=== PATIENT | female | born 1945 | race Hispanic/Latino ===

== ENCOUNTER 2017-06-04 12:26 | Outpatient (CLI) | payer MEDICARE, MEDICAID | END 2017-06-04 12:27 | disposition home or self-care (01) | LOC: CP 12:26 | PROVIDERS: ATTEND Internal Medicine | DX: R06.02 Shortness of breath (principal) | CPT/HCPCS: 94010; 94727; 94729 ==

== ENCOUNTER 2017-06-12 10:28 | Outpatient (CLI) | payer MEDICARE, MEDICAID ==
--- NOTE | 2017-06-12 12:16 | RAD ---
CHEST TWO VIEWS: History: Dyspnea. Comparison: 02-18-17 FINDINGS/IMPRESSION: Mild cardiomegaly is again noted. Blunting of the left CP angle is stable. Mild interstitial promine nce in the lung bases is stable. No infiltrate or acute interval change noted. POS: [facility]
== END 2017-06-12 10:29 | disposition home or self-care (01) ==
LOC: RAD 10:28
PROVIDERS: ATTEND Internal Medicine
DX: R06.00 Dyspnea, unspecified (principal); I51.7 Cardiomegaly
CPT/HCPCS: 71020

== ENCOUNTER 2017-11-11 07:41 | Outpatient (CLI) | payer MEDICARE, MEDICAID | END 2017-11-11 07:42 | disposition home or self-care (01) | LOC: BICMAMMO 07:41 | PROVIDERS: ATTEND Family Medicine | DX: Z12.31 Encounter for screening mammogram for malignant neoplasm of breast (principal) | CPT/HCPCS: 77063; 77067 ==

== ENCOUNTER 2017-12-17 03:41 | Inpatient (IN) | payer MEDICARE, MEDICAID ==
[2017-12-17] MEDS ORDERED: Albuterol Sulfate 2.5 mg/3 ml Neb ONE (03:53)
[2017-12-17 04:02] LABS: Actual Bicarbonate (HCO3a) 21.8 mEq/L (22-26); Base Excess (BEa) -2.1 mEq/L (0 (+/-) 2.5); CO2 Tension 34.2 mmHg (35.0-45.0); Hematocrit-ABG 40.1 % (36.0-47.0); O2 Tension (PaO2) 64.1 mmHg (80.0-100.0); pH, Arterial 7.42 (7.35-7.45)
[2017-12-17 04:03] LABS: Calcium, Ionized 1.2 mmol/L (1.12-1.30)
[2017-12-17 04:04] LABS: Analyzer IN Cardio ER; Puncture Site LRA
[2017-12-17] MEDS ORDERED: Dexamethasone 10 MG/ML VIAL ONE (04:10)
[2017-12-17] MEDS ORDERED: Magnesium Sulfate 2 GM/100 ML BAG ONE (04:10)
[2017-12-17 04:25] LABS: #Basophils 0.1 thou/uL (0.0-0.2); #Eosinphils 0.4 thou/uL (0.0-0.7); #Lymphocytes 2.6 thou/uL (1.20-3.40); #Monocytes 0.8 thou/uL (0.11-0.59); #Neutrophils 11.5 thou/uL (1.40-6.50); %Basophils 0.6 % (0.0-1.0); %Eosinophils 2.5 % (0.0-10.0); %Lymphocytes 17.1 % (21.0-51.0); %Neutrophils 74.8 % (42.0-75.0); Hemoglobin 12.3 g/dL (12.0-16.0); Mean Corpuscular HGB CONC 32.2 g/dL (32.0-36.0); Mean Corpuscular Hemoglobin 26.1 pg (27.0-31.0); Mean Corpuscular Volume 80.9 fl (81.0-99.0); Platelet Count 318 thou/uL (130-400); RBC Distribution Width 14.3 % (11.5-14.5); Red Blood Cell (RBC) Count 4.73 mill/uL (4.20-5.40); White Blood Cell (WBC) Count 15.4 thou/uL (4.8-10.8)
[2017-12-17 04:45] LABS: ALT (SGPT) 10 U/L (8-55); AST (SGOT) 12 U/L (5-34); Albumin 4.1 g/dL (3.4-4.8); Alkaline Phosphatase 150 U/L (40-150); Anion Gap 15 mmol/L (10-20); BUN (Urea Nitrogen) 25 mg/dL (9.8-20.1); Bilirubin, Total 0.6 mg/dL (0.2-1.2); CK (CPK) 50 U/L (29-168); Calc. Creatinine Clearance 0 mL/min (70-130); Calcium 9.3 mg/dL (7.8-10.44); Carbon Dioxide 21 mmol/L (23-31); Chloride 103 mmol/L (98-107); Estimated GFR-MDRD 63; Globulin 2.8 g/dL (2.4-3.5); Glucose 205 mg/dL (83-110); Lipase 18 U/L (8-78); Potassium 3.4 mmol/L (3.5-5.1); Protein, Total 6.9 g/dL (6.0-8.3); Sodium 136 mmol/L (136-145)
[2017-12-17 04:48] LABS: CKMB 0.8 ng/mL (0-6.6); Troponin I Less than 0.010 ng/mL (< 0.028)
[2017-12-17] MEDS ORDERED: Ondansetron ODT 4 MG TAB SL PRN (05:40)
[2017-12-17] MEDS ORDERED: Ondansetron HCl/PF 4 MG/2 ML Vial IVP PRN (05:40)
[2017-12-17] MEDS ORDERED: Sodium Chloride 0.9% 1,000 ML IV SCH (05:40)
[2017-12-17 05:43] VITALS: BMI 31.8
[2017-12-17] MEDS ORDERED: Dextrose 50% Abboject 50 ML SYRINGE SLOW IVP PRN (05:53)
[2017-12-17] MEDS ORDERED: Acetaminophen 650 MG Suppository PR PRN (05:53)
[2017-12-17] MEDS ORDERED: Dextrose 5% in Water 1,000 ML IV PRN (05:53)
[2017-12-17] MEDS ORDERED: Bisacodyl 5 MG TAB PO PRN (05:53)
[2017-12-17] MEDS ORDERED: Potassium Chloride 20 MEQ TAB PO SCH (06:15)
[2017-12-17] MEDS: HumaLOG 300 UNITS/3 ML VIAL SC PRN ×3 (06:30→17:54)
--- NOTE | 2017-12-17 06:41 | HP ---
PRIMARY CARE PROVIDER: Shannon Ta M.D. CHIEF COMPLAINT: Shortness of breath. HISTORY OF PRESENT ILLNESS: Ms. Bojorquez is a pleasant 72-year-old lady who was seen at [facility] on 12/17/2017. The patient mainly speaks Greek. Her daughter was the escrow officer for this encounter. Her daughter reports that Ms. Bojorquez has been short of breath for several years. She was hospitalized at [facility] in 02/2017. She reports that she was doing well approximately 1 month following the discharge. After that, she started having shortness of breath. She also reports a chronic dry cough. She reports that her house has mold. She also reports that patient has lost 25 pounds since last hospitalization. The patient reportedly had decreased activity over the last 2-3 weeks. She also has been having fatigue, tiredness, ongoing cough, shortness of breath, and wheezing. She has to sit down after walking short distances. She also developed bilateral chest pain over the last one month, dull, 7/10 at its worst , worse with coughing and deep breathing. She denies any recent travel. The patient's daughter reports that the patient felt warm to touch yesterday. Because of ongoing respiratory symptoms as well as fatigue and tiredness, patient presented to the emergency room. REVIEW OF SYSTEMS: All other systems reviewed and noted to be negative. PAST MEDICAL HISTORY: Significant for hypertension, diabetes mellitus, dyslipidemia, chronic anemia, and chronic cough. PAST SURGICAL HISTORY: Right rotator cuff surgery, right leg surgery, appendectomy, and cholecystectomy. PSYCHIATRIC HISTORY: Depression. SOCIAL HISTORY: No history of tobacco use, alcohol use, or recreational drug use. CODE STATUS: I discussed her code status. The patient is FULL CODE. Her daughter is the surrogate decision maker. ALLERGIES: No known drug allergies. CURRENT MEDICATIONS: Include Nexium 40 mg daily, atorvastatin 20 mg daily, citalopram 10 mg daily, metformin 500 mg 2 times a day, levothyroxine 25 mcg daily, losartan/hydrochlorothiazide 100/25 mg daily, aspirin 325 mg daily, QVAR 80 mcg inhalation 2 times a day, vitamin D3 of 2000 units daily, calcium citrate /vitamin D3 of 500/630 daily, and levalbuterol p.r.n. FAMILY HISTORY: No family history of premature coronary artery disease. PHYSICAL EXAMINATION: GENERAL: On examination, Ms. Bojorquez is awake and alert, not in acute distress. She appears tired. VITAL SIGNS: Blood pressure is 102/51, pulse is 110, and respiratory rate is 18. Oxygen saturations are 100% on 2 liters of oxygen. T-max in the emergency room was 100 degrees Fahrenheit. EYES: No scleral icterus, no conjunctival pallor. ENT: Moist mucosal membranes, no oropharyngeal erythema or exudates. NECK: Supple, nontender, normal range of movement, trachea is midline. RESPIRATORY: Accessory muscles of breathing are active. Chest wall movements are symmetric bilaterally. LUNGS: Reveals diffuse expiratory wheeze. CARDIOVASCULAR: S1 and S2 are heard, regular and tachycardic. Peripheral pulses palpable. No carotid bruit, no pericardial rub. ABDOMEN: Soft, nontender, bowel sounds heard, no hepatomegaly, no splenomegaly. NEUROLOGIC: Cranial nerves II-XII intact, deep tendon reflexes are 2+. MUSCULOSKELETAL: Power is 5/5 in all four extremities. She has bilateral lower extremity edema. SKIN: No rashes or subcutaneous nodules. LYMPHATIC: No cervical lymphadenopathy. PSYCHIATRIC: Normal mood, normal affect, patient is oriented to person and place, not to time. LABORATORY DATA: Ms. Bojorquez' labs and investigations were reviewed. I reviewed her electrocardiogram, which shows sinus tachycardia, no ST changes to suggest an acute coronary syndrome. I also reviewed her chest x-ray, which shows a right lower lobe infiltrate. Laboratory investigation show white count of 15,400, of which 74% are neutrophils, normal hemoglobin, normal platelet count, normal sodium, decreased potassium of 3.4, elevated blood urea nitrogen of 25, normal creatinine, normal liver profile, normal lactic acid, normal BNP and normal troponin I. ASSESSMENT AND PLAN: Ms. Bojorquez is a pleasant 72-year-old lady who was seen at [facility] on 12/17/2017. Her problem list includes: 1. Sepsis: Ms. Bojorquez presentation is consistent with sepsis, suspected source of infection in the respiratory tract. She will be admitted to the hospital for further management. 2. Acute hypoxic respiratory failure: Ms. Bojorquez had oxygen saturation of 88 % on room air upon arrival. Most likely etiology is pneumonia. However, given her recent decreased mobility and sinus tachycardia, pulmonary embolism cannot be ruled out at this time. She will be admitted to the hospital and CT angiogram chest done to rule out pulmonary embolism. 3. Community-acquired pneumonia: The patient will be treated with levofloxacin , which has already been started in the emergency room. She will also receive steroids and bronchodilators for her wheezing. Pulmonary service will be consulted. 4. Diabetes mellitus: Start Accu-Cheks, insulin sliding scale. 5. Hypothyroidism: Continue Synthroid. 6. Dyslipidemia: Continue statin. 7. Hypertension: Continue home medications, monitor vital signs and titrate antihypertensives as needed. 8. Hypokalemia: Mild, replace potassium. Many thanks for allowing me to participate in your patient's care. Please feel free to contact me with any questions or concerns. LEVEL OF RISK: High. LEVEL OF COMPLEXITY: High. MTDD
[2017-12-17] MEDS: Sodium Chloride 0.9% 1,000 ML IV SCH ×2 (06:44→17:54)
[2017-12-17] MEDS: Enoxaparin Sodium 40 MG/0.4 ML SYRINGE SC SCH (08:22)
--- NOTE | 2017-12-17 08:49 | RAD ---
PORTABLE CHEST: HISTORY: Dyspnea. COMPARISON: 02/14/17. FINDINGS: There is alveolar infiltrate in the right lung base obscuring the CP angle. The lungs otherwise appear clear. There is mild cardiomegaly. Mild aortic calcification. IMPRESSION: Right lower lobe infiltrate. Followup recommended. POS: [facility]
[2017-12-17] MEDS ORDERED: Dexamethasone 10 MG/ML VIAL SLOW IVP SCH (09:00)
--- NOTE | 2017-12-17 11:06 | CT ---
CTA THORAX WITH CONTRAST: DATE: 12/17/2017 TIME: 8:40 a.m. (Computed Tomographic Angiography, chest (noncoronary) with contrast material, and image post process ing) (PE protocol) HISTORY: A 72-year-old female with dyspnea, hypoxia, and sepsis. TECHNIQUE: IV injection of iodinated contrast: Isovue-370 66 mL. Scan acquisition timing attempted to coincide with iodinated contrast bolus reaching maximal density in pulmonary arteries. 3D MIP reconstructions. FINDINGS: There is herniation of approximately 15% to 20% of the volume of the stomach into the chest. There i s an approximately 2 x 2 x 1.5 cm soft tissue density mass at the right hilum. No mediastinal lympha denopathy. There is a moderate sized region of consolidation in the right lower lobe, extending from the right inferior hilum to the basilar segments. There is no pulmonary thromboembolism in the pulm onic trunk, left and right main pulmonary arteries, or their proximal branches. Because of breathing motion artifact, it is difficult to evaluate the peripheral, basilar branches of the pulmonary arter ies, especially on the right. No thoracic aortic aneurysm or dissection. There is approximately 75% narrowing of the anteroposterior dimension of the trachea, but not the transverse dimension, at the level of the brachiocephalic artery. The lower trachea, claude, and left and right mainstem bronchi are patent and clear. There is abrupt occlusion of the lumen of the right lower lobe bronchus a few centimeters distal to the take-off point of the right middle lobe bronchus. No pleural effusion or p neumothorax. Minimal pericardial effusion. Mild cardiomegaly. Extensive atherosclerotic calcificat ion of LAD. IMPRESSION: 1. Right lower lobe air space density infiltrate of moderate size. This could represent pneumonia o r aspiration. It may be related to the abrupt occlusion of the lower portion of the right lower lobe bronchus. 2. Small right hilar mass could be a primary lung cancer or hilar lymphadenopathy. 3. Moderate sized hiatal hernia. 4. No pulmonary thromboembolism in the proximal and mid branch levels. The lower lobe peripheral br anches cannot be evaluated because of breathing motion. 5. Mild cardiomegaly. 6. Severe coronary atherosclerosis. 7. Focal short segment of tracheomalacia. nicole[] POS: [facility]
--- NOTE | 2017-12-17 11:51 | CON ---
DATE OF CONSULTATION: 12/17/2017 The consultation encompassed 70 minutes time, of that time, greater than 50% was spent with the patie nt and/or on the patient's unit in the hospital. HISTORY OF PRESENT ILLNESS: History is obtained by speaking with the patient in Yakut. Also, from reviewing information in the patient's chart including history and physical dictated by Dr. Viet ely this morning. She is a 72-year-old Yakut speaking female who has been short of breath and ex periencing increasing cough over the last 2 days. She denies any hemoptysis. She has reportedly los t about 25 pounds since her last hospitalization, she has had low grade fever and chills. She has brown d some pain when taking a deep breath. PAST MEDICAL HISTORY: 1. She has been seen by my partner, Dr. Calix in the past for restrictive lung physiology. 2. Hypertension. 3. Diabetes mellitus. 4. Hyperlipidemia. 5. Chronic cough. PAST SURGICAL HISTORY: 1. Right rotator cuff surgery. 2. Right leg surgery. 3. Appendectomy. 4. Cholecystectomy. SOCIAL HISTORY: Nonsmoker, does not consume alcohol, does not use illicit drugs. MEDICATIONS PRIOR TO ADMISSION: Nexium, atorvastatin, citalopram, metformin, levothyroxine, losartan /hydrochlorothiazide, aspirin, Qvar, vitamin D3, calcium citrate and Xopenex. REVIEW OF SYSTEMS: Twelve point review of systems otherwise negative. PHYSICAL EXAMINATION: VITAL SIGNS: Temperature is 99.1, pulse 100, respirations 22, O2 sat 99% on 2 liters, blood pressure 125/59. GENERAL: She is in bed. She is coughing profusely, but is otherwise in no distress. HEENT: Pupils react. Sclerae anicteric. Oropharynx clear. NECK: No adenopathy, no JVD. LUNGS: She has coarse rhonchi bilaterally with crackles in the right lower lobe. CARDIOVASCULAR: S1, S2 regular, without murmur or gallop. ABDOMEN: Soft, nontender, nondistended. EXTREMITIES: No clubbing, cyanosis or edema. NEUROLOGIC: Grossly intact throughout. LABORATORY DATA: Sodium 136, potassium 3.4, chloride 103, CO2 21, BUN 25, creatinine 0.8, glucose 20 5. White blood cell count 15.4, hematocrit 38.3, platelet count 318 with 74% neutrophils. IMAGING: CT of the chest shows a consolidation/infiltrative appearance in the right lower lobe. She has about 1.8 cm right hilar lymph node that is prominent. No evidence of pulmonary emboli. ASSESSMENT: 1. Right lower lobe pneumonia. 2. Sepsis syndrome. 3. Acute hypoxic respiratory failure. 4. History of diabetes mellitus. 5. History of hypothyroidism. 6. History of hypertension. 7. Bronchospasm. PLAN: The patient is currently being treated with Levaquin which should be adequate antibiotic cover age. Rocephin and Zithromax would be alternative. I agree with scheduled nebulization treatments, b ut would increase frequency to every 4 hours scheduled. Potassium has been replaced and she is on IV fluids. I agree with the steroids given the level of bronchospasm. The dose could probably be decr eased as quickly as tomorrow. The patient is on enoxaparin for DVT prophylaxis. I will discuss case with Dr. Calix and he will assume care tomorrow.
[2017-12-17] MEDS ORDERED: Iopamidol 370 76% 100 ML VIAL ONE (11:55)
[2017-12-17] MEDS ORDERED: Sodium Chloride 0.9% 250 ML 250 ML IVPB SCH (12:00)
[2017-12-17] MEDS: Acetaminophen 325 MG TAB PO PRN (17:56)
[2017-12-18 05:12] LABS: #Lymphocytes 1.3 thou/uL (1.20-3.40); #Monocytes 0.3 thou/uL (0.11-0.59); #Neutrophils 12.8 thou/uL (1.40-6.50); %Basophils 0.1 % (0.0-1.0); %Eosinophils 0.1 % (0.0-10.0); %Lymphocytes 9.1 % (21.0-51.0); %Monocytes 2.1 % (0.0-10.0); %Neutrophils 88.6 % (42.0-75.0); Hemoglobin 10.9 g/dL (12.0-16.0); Mean Corpuscular HGB CONC 32.5 g/dL (32.0-36.0); Mean Corpuscular Hemoglobin 25.9 pg (27.0-31.0); Mean Corpuscular Volume 79.6 fl (81.0-99.0); Mean Platelet Volume 7.7 fL (7.4-10.4); Platelet Count 282 thou/uL (130-400); RBC Distribution Width 14.1 % (11.5-14.5); White Blood Cell (WBC) Count 14.4 thou/uL (4.8-10.8)
[2017-12-18 05:29] LABS: Anion Gap 9 mmol/L (10-20); BUN (Urea Nitrogen) 19 mg/dL (9.8-20.1); Calc. Creatinine Clearance 76 mL/min (70-130); Calcium 8.8 mg/dL (7.8-10.44); Carbon Dioxide 23 mmol/L (23-31); Chloride 107 mmol/L (98-107); Estimated GFR-MDRD 77; Glucose 197 mg/dL (83-110); Potassium 4.3 mmol/L (3.5-5.1); Sodium 135 mmol/L (136-145)
[2017-12-18] MEDS: Enoxaparin Sodium 40 MG/0.4 ML SYRINGE SC SCH (08:06)
[2017-12-18] MEDS: Acetaminophen 325 MG TAB PO PRN (08:06)
[2017-12-18] MEDS: HumaLOG 300 UNITS/3 ML VIAL SC PRN (09:17)
[2017-12-18] MEDS: Sodium Chloride 0.9% 1,000 ML IV SCH (09:20)
[2017-12-18] MEDS ORDERED: guaiFENesin 100 MG/5 ML UDCUP PO PRN (10:10)
--- NOTE | 2017-12-18 12:01 | PDOC.PN ---
- Subjective Encounter Start Date: 12/18/17 Encounter Start Time: 09:00 Subjective: pt up in bed still feels unwell - Objective Resuscitation Status: Resuscitation Status FULL:Full Resuscitation Vital Signs & Weight: Vital Signs (12 hours) Temp Pulse Resp BP Pulse Ox 12/18/17 10:15 86 18 97 12/18/17 07:56 97.9 F 90 20 123/58 L 93 L 12/18/17 06:22 73 18 99 12/18/17 03:21 97.2 F L 78 13 129/58 L 93 L 12/18/17 02:12 85 16 93 L 12/18/17 00:47 95 I&O: 12/17/17 12/18/17 12/19/17 06:59 06:59 06:59 Intake Total 870 Balance 870 Result Diagrams: 12/18/17 04:29 12/18/17 04:29 Additional Labs: Accuchecks 12/18/17 12/17/17 12/17/17 05:41 21:21 16:13 POC Glucose 193 H 192 H 273 H 12/17/17 12:01 POC Glucose 266 H Phys Exam - Physical Examination HEENT: PERRLA, moist MMs, sclera anicteric, TM's clear, oral pharynx no lesions , 2+ tonsils Neck: no nodes, no JVD, supple, full ROM Respiratory: wheezing present rhonchi all over Cardiovascular: RRR, no significant murmur, no rub, gallop, irregular Gastrointestinal: soft, non-tender, no distention, positive bowel sounds Musculoskeletal: no edema, pulses present, edema present Dx/Plan - Plan * 1) sepsis * 2) community acquired pneumonia * 3) Diabetes type 2 * 4) hypothyroidism * * * plan: continue current abx for now, pt on duonebs and iv steroids. still has significant wheezing and rhonchi. will add mucinex. Encouraged to use IS and flutter valve. pt to get up and out of bed. blood sugars stable. pt still requiring oxygen. continue home meds. Review of Systems - Review of Systems ENT: negative: Ear Pain, Ear Discharge, Nose Pain, Nose Discharge, Nose Congestion, Mouth Pain, Mouth Swelling, Throat Pain, Throat Swelling, Other Respiratory: Cough, Shortness of Breath Cardiovascular: negative: chest pain, palpitations, orthopnea, paroxysmal nocturnal dyspnea, edema, light headedness, other Gastrointestinal: negative: Nausea, Vomiting, Abdominal Pain, Diarrhea, Constipation, Melena, Hematochezia, Other Genitourinary: negative: Dysuria, Frequency, Incontinence, Hematuria, Retention , Other Musculoskeletal: negative: Neck Pain, Shoulder Pain, Arm Pain, Back Pain, Hand Pain, Leg Pain, Foot Pain, Other - Medications/Allergies Allergies/Adverse Reactions: Allergies Allergy/AdvReac Type Severity Reaction Status Date / Time No Known Allergies Allergy Verified 12/17/17 06:12 Medications: Current Medications Acetaminophen (Tylenol) 650 mg PO Q4H PRN PRN Reason: Headache/Fever or Pain Last Admin: 12/18/17 08:06 Dose: 650 mg Acetaminophen (Tylenol) 650 mg MO Q4H PRN PRN Reason: Headache/Fever or Pain Albuterol/Ipratropium (Duoneb) 3 ml NEB [id number] [facility] Last Admin: 12/18/17 10:15 Dose: 3 ml Bisacodyl (Dulcolax) 10 mg PO DAILYPRN PRN PRN Reason: Constipation Dextrose/Water (Dextrose 50%) 25 gm SLOW IVP PRN PRN PRN Reason: Hypoglycemia Enoxaparin Sodium (Lovenox) 40 mg SC 0900 [facility] Last Admin: 12/18/17 08:06 Dose: 40 mg Famotidine (Pepcid) 20 mg SLOW IVP BID ASH[facility] Glucagon (Glucagon) 1 mg IM PRN PRN PRN Reason: Hypoglycemia Guaifenesin (Robitussin) 100 mg PO Q4H PRN PRN Reason: Cough Guaifenesin (Mucinex) 600 mg PO Q12HR [facility] Dextrose/Water (D5w) 1,000 mls @ 0 mls/hr IV .Q0M PRN; As Directed PRN Reason: Hypoglycemia Levofloxacin 750 mg/ Device 150 mls @ 100 mls/hr IVPB Q48H [facility] Sodium Chloride (Normal Saline 0.9%) 1,000 mls @ 70 mls/hr IV .[id number] [facility] Last Admin: 12/18/17 09:20 Dose: 1,000 mls Insulin Human Lispro (Humalog) 0 units SC .MILD SLIDING SCALE PRN PRN Reason: Mild Correctional Scale Last Admin: 12/18/17 09:17 Dose: 2 unit Methylprednisolone Sodium Succinate (Solu-Medrol) 40 mg IVP Q8HR [facility] Last Admin: 12/18/17 05:27 Dose: 40 mg Sodium Chloride (Flush - Normal Saline) 10 ml IVF Q12HR [facility] Last Admin: 12/18/17 08:07 Dose: Not Given Sodium Chloride (Flush - Normal Saline) 10 ml IVF PRN PRN PRN Reason: Saline Flush
[2017-12-18] MEDS ORDERED: Dextrose 5% in Water 1,000 ML IV PRN (12:05)
[2017-12-18] MEDS ORDERED: HumaLOG 300 UNITS/3 ML VIAL SC PRN (12:05)
[2017-12-18] MEDS ORDERED: Dextrose 50% Abboject 50 ML SYRINGE SLOW IVP PRN (12:05)
--- NOTE | 2017-12-18 13:22 | PRG ---
DATE OF SERVICE: 12/18/2017 SERVICE: Pulmonary Medicine. INTERVAL HISTORY: The patient is doing fine from a respiratory standpoint. She is breathing much be tter. She continues to feel like she has something in her throat. She is coughing up a little bit o f sputum. She has no chest discomfort, fevers, chills, nausea or vomiting. She has been weaned down to half liter nasal cannula and is tolerating that just fine. PHYSICAL EXAMINATION: VITAL SIGNS: Afebrile, pulse 106, blood pressure 125/59, respirations 20, saturation 93% on 2 liters nasal cannula. GENERAL: The patient is awake, alert, no apparent distress. LUNGS: Decent air entry. There is no prolonged expiratory phase, wheezing, rhonchi or crackles. HEART: Normal rate, regular. ABDOMEN: Soft, nontender, nondistended. Bowel sounds are positive. MUSCULOSKELETAL: No cyanosis or clubbing. There is no pitting in the bilateral lower extremities. NEUROLOGIC: Grossly nonfocal. LABORATORY DATA: WBC 14.4, hemoglobin 10.9, and platelets 282,000. Basic metabolic profile is essen tially unremarkable with creatinine of 0.74, and sodium that is stable at 135. Blood cultures x2, In fluenza A and B are unremarkable. IMAGING: CTA of the chest demonstrates no evidence of pulmonary embolism. Right lower lobe airspace density/infiltrate is present in moderate size. It is consistent with aspiration and/or pneumonia. There is a small right hilar lesion likely representing a lymph node. Moderate hiatal hernia. ASSESSMENT: 1. Community acquired pneumonia. 2. Sepsis without end organ damage. 3. Acute hypoxic respiratory failure. 4. Mild restrictive lung disease, secondary to body habitus. 5. Acute bronchitis. 6. Obstructive sleep apnea, suspected. PLAN: We will continue our antibiotics and nebulized medications. We will wean oxygen as tolerated. When she is off of oxygen, she can be considered for transition out of the hospital. We will work on mobilizing her throughout the day. In the outpatient setting, she will likely benefit from a poly somnogram looking into sleep apnea.
[2017-12-18] MEDS: Atorvastatin Calcium 20 MG TAB PO SCH (20:52)
[2017-12-18] MEDS: guaiFENesin ER 600 MG TAB PO SCH (20:52)
[2017-12-18] MEDS: Famotidine 40 MG/4 ML VIAL SLOW IVP SCH (20:52)
[2017-12-19] MEDS ORDERED: Citalopram 10 MG TAB PO SCH (09:00)
[2017-12-19] MEDS: Levothyroxine Sodium 25 MCG TAB PO SCH (09:25)
[2017-12-19] MEDS: Losartan/Hydrochlorothiazide 100 mg/25 mg Tablet PO SCH (09:25)
[2017-12-19] MEDS: guaiFENesin ER 600 MG TAB PO SCH ×2 (09:25→20:43)
[2017-12-19] MEDS: Enoxaparin Sodium 40 MG/0.4 ML SYRINGE SC SCH (09:25)
[2017-12-19] MEDS: Aspirin 81 mg Enteric Coated Tablet PO SCH (09:26)
[2017-12-19] MEDS: Famotidine 40 MG/4 ML VIAL SLOW IVP SCH ×2 (09:28→20:43)
[2017-12-19] MEDS ORDERED: Furosemide 20 MG/2 ML VIAL SLOW IVP SCH (12:45)
[2017-12-19] MEDS: Acetaminophen 325 MG TAB PO PRN (14:07)
--- NOTE | 2017-12-19 14:16 | PRG ---
DATE OF SERVICE: 12/19/2017 SERVICE: Pulmonary Medicine. INTERVAL HISTORY: The patient is doing fantastic from a respiratory standpoint. She is breathing co mfortably and was able to walk up and down the hallway with physical therapy. Last night was bad nig ht; however, because of some cough and congestion all night. That being said, it really paid off bec ause today she is breathing much better. She has no complaints of chest discomfort or fevers overnig ht. There were no events reported. PHYSICAL EXAMINATION: VITAL SIGNS: Afebrile, pulse 76, blood pressure 154/71, respirations 18, saturation 93% on 2 liters nasal cannula. GENERAL: The patient is awake, alert, in no apparent distress. LUNGS: Decent air entry. Rhonchi are present. Dependent crackles are minimal. There is no wheezin g or prolonged expiratory phase present. HEART: Normal rate and regular. ABDOMEN: Soft, nontender, nondistended. Bowel sounds are positive. MUSCULOSKELETAL: No cyanosis or clubbing. There is no pitting in the bilateral lower extremities. NEUROLOGIC: Grossly nonfocal. LABORATORY DATA: WBC 14.4, hemoglobin 10.9, and platelets 282,000. Creatinine 0.74. Basic metaboli c profile is otherwise unremarkable. Blood cultures x2 and influenza remain negative. ASSESSMENT: 1. Acute hypoxic respiratory failure. 2. Community-acquired pneumonia. 3. Sepsis without end organ damage. 4. Mild restrictive lung disease secondary to body habitus. 5. Acute bronchitis. 5. Obstructive sleep apnea, suspected. PLAN: I will continue her antibiotics and nebulized medications. Oxygen will be weaned away as adele rated. From my perspective, she is stable for transition out of the hospital in 24 hours if she main tains good mobility. She may need interim oxygen on discharge from the hospital, but that can be loo ked into tomorrow morning. She would benefit from a polysomnogram in the outpatient setting. Shira goyal will continue to follow while she remains in this location, however.
--- NOTE | 2017-12-19 14:59 | PDOC.PN ---
- Subjective Encounter Start Date: 12/19/17 Encounter Start Time: 11:30 Subjective: pt up in bed did not sleep well last night. - Objective Resuscitation Status: Resuscitation Status FULL:Full Resuscitation Vital Signs & Weight: Vital Signs (12 hours) Temp Pulse Pulse Pulse Resp BP BP 12/19/17 14:10 96 18 12/19/17 13:31 102 H 101 H 112/59 L 121/59 L 12/19/17 12:28 99.8 F H 100 20 12/19/17 09:16 98.2 F 99 12/19/17 07:32 12/19/17 07:31 105 H 20 12/19/17 03:20 99.3 F 107 H 18 BP BP Pulse Ox Pulse Ox Pulse Ox 12/19/17 14:10 94 L 12/19/17 13:31 97 96 12/19/17 12:28 129/61 96 12/19/17 09:16 129/61 98 12/19/17 07:32 92 L 12/19/17 07:31 91 L 12/19/17 03:20 141/61 H 92 L Weight Weight 158 lb 5 oz I&O: 12/18/17 12/19/17 12/20/17 06:59 06:59 06:59 Intake Total 870 2680 Balance 870 2680 Result Diagrams: 12/18/17 04:29 12/18/17 04:29 Additional Labs: Accuchecks 12/19/17 12/19/17 12/18/17 10:50 05:36 21:05 POC Glucose 167 H 126 H 135 H 12/18/17 17:44 POC Glucose 133 H Phys Exam - Physical Examination HEENT: PERRLA, moist MMs, sclera anicteric, TM's clear, oral pharynx no lesions , 2+ tonsils Neck: no nodes, no JVD, supple, full ROM significant rhonchi all over lungs Cardiovascular: RRR, no significant murmur, no rub, gallop, irregular Gastrointestinal: soft, non-tender, no distention, positive bowel sounds Dx/Plan - Plan * 1) sepsis * 2) community acquired pneumonia * 3) Diabetes type 2 * 4) hypothyroidism * * * plan: continue current abx for now, pt on duonebs and iv steroids. still has significant wheezing and rhonchi. will add mucinex. Encouraged to use IS and flutter valve. pt to get up and out of bed. blood sugars stable. pt still requiring oxygen. continue home meds. * 12/19 will give her one dose of lasix. Encouraged to get pt out of bed. will continue iv steroids. will consult PT. . Review of Systems - Review of Systems Eyes: negative: Pain, Vision Change, Conjunctivae Inflammation, Eyelid Inflammation, Redness, Other Respiratory: Cough, Shortness of Breath Cardiovascular: negative: chest pain, palpitations, orthopnea, paroxysmal nocturnal dyspnea, edema, light headedness, other Gastrointestinal: negative: Nausea, Vomiting, Abdominal Pain, Diarrhea, Constipation, Melena, Hematochezia, Other Genitourinary: negative: Dysuria, Frequency, Incontinence, Hematuria, Retention , Other Musculoskeletal: negative: Neck Pain, Shoulder Pain, Arm Pain, Back Pain, Hand Pain, Leg Pain, Foot Pain, Other - Medications/Allergies Allergies/Adverse Reactions: Allergies Allergy/AdvReac Type Severity Reaction Status Date / Time No Known Allergies Allergy Verified 12/17/17 06:12 Medications: Current Medications Acetaminophen (Tylenol) 650 mg PO Q4H PRN PRN Reason: Headache/Fever or Pain Last Admin: 12/19/17 14:07 Dose: 650 mg Acetaminophen (Tylenol) 650 mg MT Q4H PRN PRN Reason: Headache/Fever or Pain Albuterol/Ipratropium (Duoneb) 3 ml NEB [id number] [facility] Last Admin: 12/19/17 14:10 Dose: 3 ml Aspirin (Ecotrin) 81 mg PO DAILY [facility] Last Admin: 12/19/17 09:26 Dose: 81 mg Atorvastatin Calcium (Lipitor) 20 mg PO HS [facility] Last Admin: 12/18/17 20:52 Dose: 20 mg Benzonatate (Tessalon) 100 mg PO TIDPRN PRN PRN Reason: Cough Bisacodyl (Dulcolax) 10 mg PO DAILYPRN PRN PRN Reason: Constipation Cholecalciferol (Vitamin D3) 2,000 units PO DAILY [facility] Last Admin: 12/19/17 09:26 Dose: 2,000 units Dextrose/Water (Dextrose 50%) 25 gm SLOW IVP PRN PRN PRN Reason: Hypoglycemia Enoxaparin Sodium (Lovenox) 40 mg SC 0900 [facility] Last Admin: 12/19/17 09:25 Dose: 40 mg Famotidine (Pepcid) 20 mg SLOW IVP BID [facility] Last Admin: 12/19/17 09:28 Dose: 20 mg Glucagon (Glucagon) 1 mg IM PRN PRN PRN Reason: Hypoglycemia Guaifenesin (Robitussin) 100 mg PO Q4H PRN PRN Reason: Cough Guaifenesin (Mucinex) 600 mg PO Q12HR [facility] Last Admin: 12/19/17 09:25 Dose: 600 mg HCTZ/Losartan Potassium (Hyzaar 100/25) 1 tab PO DAILY [facility] Last Admin: 12/19/17 09:25 Dose: 1 tab Dextrose/Water (D5w) 1,000 mls @ 0 mls/hr IV .Q0M PRN; As Directed PRN Reason: Hypoglycemia Levofloxacin 750 mg/ Device 150 mls @ 100 mls/hr IVPB 1400 [facility] Last Admin: 12/19/17 14:06 Dose: 150 mls Insulin Human Lispro (Humalog) 0 units SC .MODERATE SLIDING SC PRN PRN Reason: Moderate Correctional Scale Levothyroxine Sodium (Synthroid) 25 mcg PO DAILY [facility] Last Admin: 12/19/17 09:25 Dose: 25 mcg Sodium Chloride (Flush - Normal Saline) 10 ml IVF Q12HR [facility] Last Admin: 12/19/17 09:29 Dose: 10 ml Sodium Chloride (Flush - Normal Saline) 10 ml IVF PRN PRN PRN Reason: Saline Flush
[2017-12-19] MEDS: Atorvastatin Calcium 20 MG TAB PO SCH (20:43)
[2017-12-20 05:13] LABS: Band 5 % (5-11); Eosinophils 1 % (0-10); Hemoglobin 10.9 g/dL (12.0-16.0); Hypochromia SLIGHT = 6-15 cells (100X) (0-5/hpf); Lymphocytes 19 % (21-51); MDiff Complete? YES; Mean Corpuscular HGB CONC 33.2 g/dL (32.0-36.0); Mean Corpuscular Hemoglobin 26.3 pg (27.0-31.0); Mean Corpuscular Volume 79.2 fl (81.0-99.0); Mean Platelet Volume 7.4 fL (7.4-10.4); Monocytes 5 % (0-10); Neutrophil 70 % (42-75); PLT Morphology Comment Appears Adequate; Platelet Count 297 thou/uL (130-400); Red Blood Cell (RBC) Count 4.14 mill/uL (4.20-5.40); White Blood Cell (WBC) Count 12.9 thou/uL (4.8-10.8)
[2017-12-20 05:18] LABS: Anion Gap 16 mmol/L (10-20); BUN (Urea Nitrogen) 16 mg/dL (9.8-20.1); Calc. Creatinine Clearance 76 mL/min (70-130); Carbon Dioxide 20 mmol/L (23-31); Chloride 103 mmol/L (98-107); Estimated GFR-MDRD 76; Glucose 138 mg/dL (83-110); Potassium 3.6 mmol/L (3.5-5.1); Sodium 135 mmol/L (136-145)
[2017-12-20] MEDS: Losartan/Hydrochlorothiazide 100 mg/25 mg Tablet PO SCH (08:31)
[2017-12-20] MEDS: guaiFENesin ER 600 MG TAB PO SCH ×2 (08:32→21:18)
[2017-12-20] MEDS: Levothyroxine Sodium 25 MCG TAB PO SCH (08:32)
[2017-12-20] MEDS: Aspirin 81 mg Enteric Coated Tablet PO SCH (08:32)
[2017-12-20] MEDS: Famotidine 40 MG/4 ML VIAL SLOW IVP SCH (08:32)
[2017-12-20] MEDS: Enoxaparin Sodium 40 MG/0.4 ML SYRINGE SC SCH (08:33)
--- NOTE | 2017-12-20 14:12 | PDOC.PN ---
- Subjective Encounter Start Date: 12/20/17 Encounter Start Time: 10:30 Subjective: pt up in bed no complains, feels much better today - Objective Resuscitation Status: Resuscitation Status FULL:Full Resuscitation Vital Signs & Weight: Vital Signs (12 hours) Temp Pulse Resp BP BP Pulse Ox 12/20/17 13:51 104 H 20 97 12/20/17 11:13 99.5 F 102 H 16 117/62 94 L 12/20/17 08:12 99 20 91 L 12/20/17 07:25 98.7 F 88 16 137/67 95 12/20/17 03:48 98.9 F 97 20 131/65 96 Weight Weight 158 lb 6 oz I&O: 12/19/17 12/20/17 12/21/17 06:59 06:59 06:59 Intake Total 2680 1320 Balance 2680 1320 Result Diagrams: 12/20/17 04:27 12/20/17 04:27 Additional Labs: Accuchecks 12/20/17 12/20/17 12/19/17 10:45 05:56 21:00 POC Glucose 150 H 137 H 157 H 12/19/17 16:20 POC Glucose 160 H Phys Exam - Physical Examination HEENT: PERRLA, moist MMs, sclera anicteric, TM's clear, oral pharynx no lesions , 2+ tonsils Neck: no nodes, no JVD, supple, full ROM mild rhonchi to bilateral lungs Cardiovascular: RRR, no significant murmur, no rub, gallop, irregular Gastrointestinal: soft, non-tender, no distention, positive bowel sounds Dx/Plan - Plan 1) sepsis resolved * 2) community acquired pneumonia * 3) Diabetes type 2 * 4) hypothyroidism * * * plan: continue current abx for now, pt on duonebs and iv steroids. still has significant wheezing and rhonchi. will add mucinex. Encouraged to use IS and flutter valve. pt to get up and out of bed. blood sugars stable. pt still requiring oxygen. continue home meds. * 12/19 will give her one dose of lasix. Encouraged to get pt out of bed. will continue iv steroids. will consult PT. * 12/20 pt feels much better today. pulmonary stopped her steroids. will continue her abx for now. possible discharge on friday. will check iron studies she is anemic. * . Review of Systems - Review of Systems Eyes: negative: Pain, Vision Change, Conjunctivae Inflammation, Eyelid Inflammation, Redness, Other ENT: negative: Ear Pain, Ear Discharge, Nose Pain, Nose Discharge, Nose Congestion, Mouth Pain, Mouth Swelling, Throat Pain, Throat Swelling, Other Respiratory: Cough Cardiovascular: negative: chest pain, palpitations, orthopnea, paroxysmal nocturnal dyspnea, edema, light headedness, other Gastrointestinal: negative: Nausea, Vomiting, Abdominal Pain, Diarrhea, Constipation, Melena, Hematochezia, Other - Medications/Allergies Allergies/Adverse Reactions: Allergies Allergy/AdvReac Type Severity Reaction Status Date / Time No Known Allergies Allergy Verified 12/17/17 06:12 Medications: Current Medications Acetaminophen (Tylenol) 650 mg PO Q4H PRN PRN Reason: Headache/Fever or Pain Last Admin: 12/19/17 14:07 Dose: 650 mg Acetaminophen (Tylenol) 650 mg OR Q4H PRN PRN Reason: Headache/Fever or Pain Albuterol/Ipratropium (Duoneb) 3 ml NEB [id number] [facility] Last Admin: 12/20/17 13:51 Dose: 3 ml Aspirin (Ecotrin) 81 mg PO DAILY [facility] Last Admin: 12/20/17 08:32 Dose: 81 mg Atorvastatin Calcium (Lipitor) 20 mg PO HS [facility] Last Admin: 12/19/17 20:43 Dose: 20 mg Benzonatate (Tessalon) 100 mg PO TIDPRN PRN PRN Reason: Cough Bisacodyl (Dulcolax) 10 mg PO DAILYPRN PRN PRN Reason: Constipation Cholecalciferol (Vitamin D3) 2,000 units PO DAILY [facility] Last Admin: 12/20/17 08:32 Dose: 2,000 units Dextrose/Water (Dextrose 50%) 25 gm SLOW IVP PRN PRN PRN Reason: Hypoglycemia Enoxaparin Sodium (Lovenox) 40 mg SC 0900 [facility] Last Admin: 12/20/17 08:33 Dose: 40 mg Famotidine (Pepcid) 20 mg PO BID [facility] Glucagon (Glucagon) 1 mg IM PRN PRN PRN Reason: Hypoglycemia Guaifenesin (Robitussin) 100 mg PO Q4H PRN PRN Reason: Cough Guaifenesin (Mucinex) 600 mg PO Q12HR [facility] Last Admin: 12/20/17 08:32 Dose: 600 mg HCTZ/Losartan Potassium (Hyzaar 100/25) 1 tab PO DAILY [facility] Last Admin: 12/20/17 08:31 Dose: 1 tab Dextrose/Water (D5w) 1,000 mls @ 0 mls/hr IV .Q0M PRN; As Directed PRN Reason: Hypoglycemia Levofloxacin 750 mg/ Device 150 mls @ 100 mls/hr IVPB 1400 [facility] Last Admin: 12/20/17 13:33 Dose: 150 mls Magnesium Sulfate 1 gm/ Sodium (Chloride) 102 mls @ 100 mls/hr IVPB NOW [facility] Stop: 12/20/17 15:15 Insulin Human Lispro (Humalog) 0 units SC .MODERATE SLIDING SC PRN PRN Reason: Moderate Correctional Scale Levothyroxine Sodium (Synthroid) 25 mcg PO DAILY [facility] Last Admin: 12/20/17 08:32 Dose: 25 mcg Polyethylene Glycol (Miralax) 17 gm PO DAILY [facility] Senna/Docusate Sodium (Senokot S) 1 tab PO BID [facility] Sodium Chloride (Flush - Normal Saline) 10 ml IVF Q12HR [facility] Last Admin: 12/20/17 08:33 Dose: 10 ml Sodium Chloride (Flush - Normal Saline) 10 ml IVF PRN PRN PRN Reason: Saline Flush
--- NOTE | 2017-12-20 15:37 | PRG ---
DATE OF SERVICE: 12/20/2017 SUBJECTIVE: She says she is better. She is still coughing up a lot of yellow sputum. OBJECTIVE: VITAL SIGNS: Blood pressure is 117/62, sats are 90% in room air, respirations 16, temperature 99. CHEST: Reveal extensive rhonchi and crackles. CARDIAC: Normal S1 and S2, no gallops. ABDOMEN: Soft, without masses. LABORATORY DATA: White count 12,000, hemoglobin and hematocrit 10 and 32, platelet count is normal. Electrolytes are normal. Cultures negative. IMPRESSION: Respiratory failure, bronchitis, pneumonia. Continue antibiotics, nebulizer treatment, PT, supportive care. We will follow.
[2017-12-20] MEDS: Famotidine 20 MG TAB PO SCH (21:18)
[2017-12-20] MEDS: Senokot S 8.6-50 MG TAB PO SCH (21:18)
[2017-12-20] MEDS: Atorvastatin Calcium 20 MG TAB PO SCH (21:19)
[2017-12-21 05:32] LABS: Iron 20 ug/dL (50-170); Iron Binding Capacity, Total 315 mcg/dL (265-497)
[2017-12-21] MEDS: Levothyroxine Sodium 25 MCG TAB PO SCH (05:54)
[2017-12-21] MEDS ORDERED: predniSONE 20 MG TAB PO SCH (08:00)
[2017-12-21] MEDS: Acetaminophen 325 MG TAB PO PRN ×2 (09:20→16:54)
[2017-12-21] MEDS: Senokot S 8.6-50 MG TAB PO SCH ×2 (09:20→20:13)
[2017-12-21] MEDS: Aspirin 81 mg Enteric Coated Tablet PO SCH (09:20)
[2017-12-21] MEDS: Enoxaparin Sodium 40 MG/0.4 ML SYRINGE SC SCH (09:20)
[2017-12-21] MEDS: Polyethylene Glycol 3350 17 GM Packet PO SCH (09:20)
[2017-12-21] MEDS: Losartan/Hydrochlorothiazide 100 mg/25 mg Tablet PO SCH (09:20)
[2017-12-21] MEDS: Famotidine 20 MG TAB PO SCH ×2 (09:20→20:13)
[2017-12-21] MEDS: guaiFENesin ER 600 MG TAB PO SCH ×2 (09:20→20:13)
[2017-12-21] MEDS ORDERED: Loratadine 10 MG TAB PO SCH (12:00)
[2017-12-21] MEDS: Fluticasone Propionate Nasal Spray 16 gm Bottle NASAL SCH (12:46)
--- NOTE | 2017-12-21 13:30 | PRG ---
DATE OF SERVICE: 12/21/2017 SUBJECTIVE: Jeanna Bojorquez is still coughing and wheezing. OBJECTIVE: VITAL SIGNS: Sats are 98% on room air, respirations 16, temperature 97, blood pressure 94/56. CHEST: Extensive rhonchi and crackles. CARDIAC: Normal S1, S2, no gallops. ABDOMEN: Soft, no masses. IMPRESSION: Right lower lobe pneumonia, bronchitis. PLAN: Cultures are negative. Suggest switching over to oral antibiotics, PT and supportive care.
[2017-12-21] MEDS: Benzonatate 100 MG CAP PO PRN ×2 (16:54→23:32)
[2017-12-21] MEDS: Mometasone/Formoterol 120 PUFF INHALER INH SCH (18:58)
[2017-12-21] MEDS: Atorvastatin Calcium 20 MG TAB PO SCH (20:13)
--- NOTE | 2017-12-21 21:39 | PDOC.PN ---
- Subjective Encounter Start Date: 12/21/17 Encounter Start Time: 11:00 Patient seen and examined for Pneumonia. Nasal stuffiness, Dry cough +. No new complaints. No overnight events - Objective Resuscitation Status: Resuscitation Status FULL:Full Resuscitation MAR Reviewed: Yes Vital Signs & Weight: Vital Signs (12 hours) Temp Pulse Resp BP Pulse Ox 12/21/17 18:57 99 16 95 12/21/17 16:45 97.8 F 104 H 18 114/58 L 96 12/21/17 13:05 98 16 94 L 12/21/17 12:00 97.7 F 99 16 94/56 L 93 L Weight Weight 155 lb I&O: 12/20/17 12/21/17 12/22/17 06:59 06:59 06:59 Intake Total 1320 1690 960 Balance 1320 1690 960 Result Diagrams: 12/20/17 04:27 12/20/17 04:27 Additional Labs: Accuchecks 12/21/17 12/21/17 12/21/17 16:38 10:53 06:10 POC Glucose 123 H 155 H 150 H 12/20/17 21:37 POC Glucose 128 H EKG Reviewed by me: Yes (Tele SR, SVT yesterday) Phys Exam - Physical Examination Constitutional: NAD Respiratory: no wheezing, no rhonchi Cardiovascular: RRR, no rub Rt sided rales Gastrointestinal: soft, non-tender, positive bowel sounds Musculoskeletal: no edema Neurological: moves all 4 limbs Psychiatric: A&O x 3 Dx/Plan - Plan respiratory therapy, DVT proph w/lovenox, DVT proph w/SCDs IMPRESSION/PLAN: 1. Acute hypoxic respiratory failure/Sepsis due to Pneumonia ?Pneumococcal - Cont Levaquin, Nebs, Mucolytics, O2 - Add Flonase, Loratadine due to allergic symptoms 2. DM2 - Cont sliding scale, ACHS 3. SVT - Add Cardizem 30 mg TID, Normal EF last year 4. HTN - BP on lower side - Will hold Losartan/HCTZ, Started on Cardizem 5. Obesity BMI 31.3 6. Hypothyroidism - Cont Levothyroxine 7. ?Hilar mass on CT - Repeat CT as outpt, Pulmonary following 8. Disposition - Probably in 24 hr Review of Systems - Review of Systems Cardiovascular: negative: chest pain, palpitations, orthopnea, paroxysmal nocturnal dyspnea, edema, light headedness, other Gastrointestinal: negative: Nausea, Vomiting, Abdominal Pain, Diarrhea, Constipation, Melena, Hematochezia, Other Genitourinary: negative: Dysuria, Frequency, Incontinence, Hematuria, Retention , Other - Medications/Allergies Allergies/Adverse Reactions: Allergies Allergy/AdvReac Type Severity Reaction Status Date / Time No Known Allergies Allergy Verified 12/17/17 06:12 Medications: Current Medications Acetaminophen (Tylenol) 650 mg PO Q4H PRN PRN Reason: Headache/Fever or Pain Last Admin: 12/21/17 16:54 Dose: 650 mg Acetaminophen (Tylenol) 650 mg NM Q4H PRN PRN Reason: Headache/Fever or Pain Albuterol/Ipratropium (Duoneb) 3 ml NEB [id number] [facility] Last Admin: 12/21/17 18:57 Dose: 3 ml Aspirin (Ecotrin) 81 mg PO DAILY [facility] Last Admin: 12/21/17 09:20 Dose: 81 mg Atorvastatin Calcium (Lipitor) 20 mg PO HS [facility] Last Admin: 12/21/17 20:13 Dose: 20 mg Benzonatate (Tessalon) 100 mg PO TIDPRN PRN PRN Reason: Cough Last Admin: 12/21/17 16:54 Dose: 100 mg Bisacodyl (Dulcolax) 10 mg PO DAILYPRN PRN PRN Reason: Constipation Cholecalciferol (Vitamin D3) 2,000 units PO DAILY [facility] Last Admin: 12/21/17 09:20 Dose: 2,000 units Dextrose/Water (Dextrose 50%) 25 gm SLOW IVP PRN PRN PRN Reason: Hypoglycemia Diltiazem HCl (Cardizem) 30 mg PO TID [facility] Enoxaparin Sodium (Lovenox) 40 mg SC 0900 [facility] Last Admin: 12/21/17 09:20 Dose: 40 mg Famotidine (Pepcid) 20 mg PO BID [facility] Last Admin: 12/21/17 20:13 Dose: 20 mg Fluticasone Propionate (Flonase Nasal [place]) 0 gm NASAL Q24H [facility] Last Admin: 12/21/17 12:46 Dose: 2 spr Glucagon (Glucagon) 1 mg IM PRN PRN PRN Reason: Hypoglycemia Guaifenesin (Robitussin) 100 mg PO Q4H PRN PRN Reason: Cough Guaifenesin (Mucinex) 600 mg PO Q12HR [facility] Last Admin: 12/21/17 20:13 Dose: 600 mg HCTZ/Losartan Potassium (Hyzaar 100/25) 1 tab PO DAILY [facility] Last Admin: 12/21/17 09:20 Dose: 1 tab Dextrose/Water (D5w) 1,000 mls @ 0 mls/hr IV .Q0M PRN; As Directed PRN Reason: Hypoglycemia Insulin Human Lispro (Humalog) 0 units SC .MODERATE SLIDING SC PRN PRN Reason: Moderate Correctional Scale Levofloxacin (Levaquin) 750 mg PO 1400 [facility] Last Admin: 12/21/17 14:14 Dose: 750 mg Levothyroxine Sodium (Synthroid) 25 mcg PO 0600 [facility] Last Admin: 12/21/17 05:54 Dose: 25 mcg Loratadine (Claritin) 10 mg PO DAILY [facility] Mometasone Furoate/Formoterol Fumar (Dulera 200 Mcg/5 Mcg Inhaler) 2 puff INH BID-RT [facility] Last Admin: 12/21/17 18:58 Dose: 2 puff Polyethylene Glycol (Miralax) 17 gm PO DAILY [facility] Last Admin: 12/21/17 09:20 Dose: 17 gm Saccharomyces Boulardii (Florastor) 250 mg PO DAILY [facility] Senna/Docusate Sodium (Senokot S) 1 tab PO BID [facility] Last Admin: 12/21/17 20:13 Dose: 1 tab Sodium Chloride (Flush - Normal Saline) 10 ml IVF Q12HR [facility] Last Admin: 12/21/17 20:13 Dose: 10 ml Sodium Chloride (Flush - Normal Saline) 10 ml IVF PRN PRN PRN Reason: Saline Flush
[2017-12-22 05:08] LABS: #Eosinphils 1.6 thou/uL (0.0-0.7); #Lymphocytes 1.7 thou/uL (1.20-3.40); #Monocytes 0.7 thou/uL (0.11-0.59); #Neutrophils 8.5 thou/uL (1.40-6.50); %Basophils 0.2 % (0.0-1.0); %Eosinophils 12.5 % (0.0-10.0); %Lymphocytes 13.3 % (21.0-51.0); %Monocytes 5.5 % (0.0-10.0); %Neutrophils 68.4 % (42.0-75.0); Hemoglobin 10.9 g/dL (12.0-16.0); Mean Corpuscular HGB CONC 32.1 g/dL (32.0-36.0); Mean Corpuscular Hemoglobin 25.5 pg (27.0-31.0); Mean Corpuscular Volume 79.5 fl (81.0-99.0); Mean Platelet Volume 7.4 fL (7.4-10.4); Platelet Count 329 thou/uL (130-400); Red Blood Cell (RBC) Count 4.28 mill/uL (4.20-5.40); White Blood Cell (WBC) Count 12.4 thou/uL (4.8-10.8)
[2017-12-22 05:23] LABS: Albumin 3.3 g/dL (3.4-4.8); Anion Gap 12 mmol/L (10-20); BUN (Urea Nitrogen) 22 mg/dL (9.8-20.1); BUN/Creatinine Ratio 26.83; Calc. Creatinine Clearance 68 mL/min (70-130); Calcium 9.1 mg/dL (7.8-10.44); Carbon Dioxide 24 mmol/L (23-31); Chloride 104 mmol/L (98-107); Estimated GFR-MDRD 68; Glucose 128 mg/dL (83-110); Magnesium 1.7 mg/dL (1.6-2.6); Phosphorus 3.3 mg/dL (2.3-4.7); Potassium 3.7 mmol/L (3.5-5.1); Sodium 136 mmol/L (136-145)
[2017-12-22] MEDS: Levothyroxine Sodium 25 MCG TAB PO SCH (05:41)
[2017-12-22] MEDS: Mometasone/Formoterol 120 PUFF INHALER INH SCH ×2 (08:45→19:31)
[2017-12-22] MEDS: Polyethylene Glycol 3350 17 GM Packet PO SCH (09:00)
[2017-12-22] MEDS: guaiFENesin ER 600 MG TAB PO SCH ×2 (09:33→22:00)
[2017-12-22] MEDS: Loratadine 10 MG TAB PO SCH (09:33)
[2017-12-22] MEDS: Famotidine 20 MG TAB PO SCH ×2 (09:33→22:00)
[2017-12-22] MEDS: Saccharomyces boulardii 250 MG CAP PO SCH (09:33)
[2017-12-22] MEDS: Aspirin 81 mg Enteric Coated Tablet PO SCH (09:34)
[2017-12-22] MEDS: Fluticasone Propionate Nasal Spray 16 gm Bottle NASAL SCH (09:34)
[2017-12-22] MEDS: Senokot S 8.6-50 MG TAB PO SCH ×2 (09:37→22:00)
--- NOTE | 2017-12-22 09:39 | PDOC.PN ---
- Subjective Encounter Start Date: 12/22/17 Encounter Start Time: 10:30 Subjective: Patient with continued chest congestion and cough. Significant nasal -: congestion. Requiring O2 still, desats to 88% on room air. - Objective Resuscitation Status: Resuscitation Status FULL:Full Resuscitation MAR Reviewed: Yes Vital Signs & Weight: Vital Signs (12 hours) Temp Pulse Resp BP Pulse Ox 12/22/17 08:45 81 12 12/22/17 08:40 96 12/22/17 08:39 107 H 18 12/22/17 08:00 99.3 F 104 H 20 109/82 90 L 12/22/17 04:00 98.3 F 105 H 117/58 L 92 L 12/22/17 00:28 97 16 93 L Weight Weight 169 lb I&O: 12/21/17 12/22/17 12/23/17 06:59 06:59 06:59 Intake Total 1690 1440 Balance 1690 1440 Result Diagrams: 12/22/17 04:30 12/22/17 04:30 Additional Labs: Accuchecks 12/22/17 12/21/17 12/21/17 05:51 21:10 16:38 POC Glucose 132 H 139 H 123 H 12/21/17 10:53 POC Glucose 155 H Phys Exam - Physical Examination Constitutional: NAD obesity HEENT: moist MMs Respiratory: wheezing present air movement decent bilaterally Cardiovascular: RRR, no significant murmur Gastrointestinal: soft, positive bowel sounds Neurological: non-focal, moves all 4 limbs Psychiatric: normal affect, A&O x 3 Dx/Plan (1) Community acquired bacterial pneumonia Code(s): J15.9 - UNSPECIFIED BACTERIAL PNEUMONIA Status: Acute Comment: Transitioned to oral Levaquin, can d/c on home O2 (2) Acute respiratory failure with hypoxia Code(s): J96.01 - ACUTE RESPIRATORY FAILURE WITH HYPOXIA Status: Acute Comment: Still hypoxic on room air. Will need transition O2 at home. (3) DAYDAY (obstructive sleep apnea) Code(s): G47.33 - OBSTRUCTIVE SLEEP APNEA (ADULT) (PEDIATRIC) Status: Suspected Comment: Needs outpatient sleep study (4) Mediastinal mass Status: Acute Comment: Right sided, lymphadenopathy vs. primary lung cancer, needs repeat CT as outpatient (5) Anxiety and depression Code(s): F41.9 - ANXIETY DISORDER, UNSPECIFIED; F32.9 - MAJOR DEPRESSIVE DISORDER, SINGLE EPISODE, UNSPECIFIED Status: Chronic (6) DM2 (diabetes mellitus, type 2) Status: Chronic (7) Dyslipidemia Code(s): E78.5 - HYPERLIPIDEMIA, UNSPECIFIED Status: Chronic (8) GERD (gastroesophageal reflux disease) Code(s): K21.9 - GASTRO-ESOPHAGEAL REFLUX DISEASE WITHOUT ESOPHAGITIS Status: Chronic (9) HTN (hypertension) Code(s): I10 - ESSENTIAL (PRIMARY) HYPERTENSION Status: Chronic (10) Hypothyroidism Code(s): E03.9 - HYPOTHYROIDISM, UNSPECIFIED Status: Chronic (11) Microcytic anemia Code(s): D50.9 - IRON DEFICIENCY ANEMIA, UNSPECIFIED Status: Chronic (12) Obesity (BMI 30-39.9) Code(s): E66.9 - OBESITY, UNSPECIFIED Status: Chronic - Plan cont current plan of care, continue antibiotics, respiratory therapy Arrange home O2 then d/c, follow up with pulmonology as an outpatient * . - Discharge Day Encounter end time: 11:00
--- NOTE | 2017-12-22 14:41 | DIS ---
PRIMARY CARE PHYSICIAN: Chandler Kelsey M.D. REASON FOR ADMISSION: Pneumonia with sepsis. DISCHARGE DIAGNOSES: 1. Community-acquired bacterial pneumonia. 2. Acute respiratory failure with hypoxia. 3. Possible obstructive sleep apnea. 4. Mediastinal mass with right hilar mass. 5. Anxiety and depression. 6. Diabetes mellitus, type 2. 7. Dyslipidemia. 8. Gastroesophageal reflux disease. 9. Hypertension. 10. Hypothyroidism 11. Microcytic anemia. 12. Obesity. 13. Supraventricular tachycardia asymptomatic and paroxysmal. PROCEDURES: CTA of the chest and thorax showing a right lower lobe airspace density infiltrate a mod erate size, likely pneumonia, a small right hilar mass either primary lung cancer or hilar lymphadeno chuck, moderate size hiatal hernia and no pulmonary embolism, also noted to have a focal short segmen t of tracheomalacia and severe coronary artery atherosclerosis. CONSULTATIONS: Pulmonology, Dr. He. SUMMARY OF HOSPITAL COURSE: This is a 72-year-old female with a history of shortness of breath for s everal years. She is having worsening shortness of breath over about the last year, along with some weight loss and a chronic cough and then significant worsening over the last 2-3 weeks. She brought to the emergency room and was found to be hypoxic on room air and was also found to have an infiltrat e on chest x-ray. She had a CT angio done, which showed the above results. No evidence of PE. The patient was admitted to hospital, Pulmonology was consulted. The patient was treated with Levaquin f or pneumonia along with some steroids and nebulizers. She did improve with hospitalization; however, she was still dependent on oxygen. On the day of discharge, she was successfully switched to oral a ntibiotics and has home oxygen arranged. In the last couple of days during her hospitalization, she did have some runs of supraventricular tachycardia, these were self-limited and asymptomatic. She wa s started on some Cardizem 3 times today for this with control of her heart rate. This is thought to be due to the pulmonary infection and hypoxia. On the day of discharge, she was improved, ambulatin g well and is being discharged home. DISCHARGE MANAGEMENT: Discharged home with home health. ACTIVITY: As tolerated. DIET: Diabetic diet. HOME EQUIPMENT SUPPLIES. Oxygen 2 liters via nasal cannula. MEDICATIONS: 1. Levofloxacin 750 mg daily for 2 more days. 2. Mucinex ER 600 mg twice a day, 30 tablets dispensed. 3. Flonase 2 sprays in each nostril daily one bottle dispense. 4. Diltiazem 30 mg 3 times a day, 90 tablets dispensed. 5. Tessalon Perles 100 mg 3 times a day as needed for coughing, 30 caps dispensed, and she is to res ume her home medications. 6. Calcium citrate/vitamin D 250/200 two tablets daily. 7. Albuterol sulfate inhaler 1 puff every 4 hours as needed for coughing, wheezing, shortness of jeaneth ath. 8. Vitamin D3 at 2000 units daily. 9. Qvar 1 puff twice a day. 10. Aspirin 81 mg daily. 11. Losartan/hydrochlorothiazide 100/25 mg 1 tablet daily. 12. Metformin 500 mg twice a day. 13. Levothyroxine 25 mcg daily. 14. Citalopram 10 mg daily. 15. Lipitor 20 mg at night. 16. Nexium 40 mg daily. FOLLOWUP: The patient is to followup with Dr. Calix in 2 weeks. She will need a repeat CT scan fo r the hilar mass and will need an outpatient sleep study arranged.
--- NOTE | 2017-12-22 18:13 | PRG ---
DATE OF SERVICE: 12/22/2017 SERVICE: Pulmonary Medicine. INTERVAL HISTORY: The patient is doing great from a respiratory standpoint. She is breathing much better. She continues to have a cough. That being said, starting to settle down slightly. She denies any fevers, chills, nausea or vomiting. There were no significant overnight events, however. OBJECTIVE: VITAL SIGNS: Afebrile with a T-max of 99.2, pulse 99, blood pressure 101/55, respirations 16, saturation 93% on 2 liters nasal cannula. GENERAL: The patient is awake and alert, no apparent distress. LUNGS: Decent air entry bilaterally without significant wheezing, rhonchi or crackles. HEART: Normal rate, regular. ABDOMEN: Soft, nontender, nondistended. Bowel sounds are positive. MUSCULOSKELETAL: No cyanosis or clubbing. No pitting in the bilateral lower extremities. ASSESSMENT: 1. Acute hypoxic respiratory failure. 2. Community-acquired pneumonia. 3. Sepsis without end organ damage. 4. Mild restrictive lung disease secondary to body habitus. 5. Acute bronchitis. 6. Obstructive sleep apnea, suspected. DISCUSSION AND PLAN: The patient is stable for transition out of the hospital from my perspective. She needs a followup with me in the outpatient setting in order to have a polysomnogram set. I have asked her to call my office and arrange for the follow-up. I have previously attempted to two separate occasions to set up a polysomnogram, but the patient does not follow through. I will continue to follow if she remains inhouse, however. SULMA
[2017-12-22] MEDS: Atorvastatin Calcium 20 MG TAB PO SCH (22:00)
[2017-12-23] MEDS: Levothyroxine Sodium 25 MCG TAB PO SCH (06:00)
[2017-12-23] MEDS: Mometasone/Formoterol 120 PUFF INHALER INH SCH (07:10)
[2017-12-23] MEDS: Famotidine 20 MG TAB PO SCH (09:00)
[2017-12-23] MEDS: Aspirin 81 mg Enteric Coated Tablet PO SCH (09:00)
[2017-12-23] MEDS: Saccharomyces boulardii 250 MG CAP PO SCH (09:00)
[2017-12-23] MEDS: Loratadine 10 MG TAB PO SCH (09:00)
[2017-12-23] MEDS: guaiFENesin ER 600 MG TAB PO SCH (09:00)
[2017-12-23] MEDS: Polyethylene Glycol 3350 17 GM Packet PO SCH (09:01)
[2017-12-23] MEDS: Senokot S 8.6-50 MG TAB PO SCH (09:01)
--- NOTE | 2017-12-23 09:40 | PDOC.PN ---
- Subjective Encounter Start Date: 12/23/17 Encounter Start Time: 10:50 Subjective: Patient doing better. Sating 96% on 2L NC. O2 turned off 1 hour ago , feels -: ok, not sure sats on RA this AM. Plan to go home on home O2 today. - Objective Resuscitation Status: Resuscitation Status FULL:Full Resuscitation MAR Reviewed: Yes Vital Signs & Weight: Vital Signs (12 hours) Temp Pulse Resp BP Pulse Ox 12/23/17 07:10 80 14 12/23/17 04:00 98.2 F 88 18 135/66 96 12/23/17 00:30 101 H 20 93 L Weight Weight 165 lb 11.2 oz I&O: 12/22/17 12/23/17 12/24/17 06:59 06:59 06:59 Intake Total 1440 240 Balance 1440 240 Result Diagrams: 12/22/17 04:30 12/22/17 04:30 Additional Labs: Accuchecks 12/23/17 12/22/17 12/22/17 06:02 20:38 16:48 POC Glucose 130 H 160 H 141 H 12/22/17 11:30 POC Glucose 112 H Phys Exam - Physical Examination Constitutional: NAD HEENT: moist MMs coarse breath sounds and scattered wheezes bilaterally, good air movement throughout Cardiovascular: RRR, no significant murmur Gastrointestinal: soft, positive bowel sounds Neurological: non-focal, moves all 4 limbs Psychiatric: normal affect, A&O x 3 Dx/Plan (1) Community acquired bacterial pneumonia Code(s): J15.9 - UNSPECIFIED BACTERIAL PNEUMONIA Status: Acute Comment: Transitioned to oral Levaquin, can d/c on home O2 (2) Acute respiratory failure with hypoxia Code(s): J96.01 - ACUTE RESPIRATORY FAILURE WITH HYPOXIA Status: Acute Comment: Still hypoxic on room air. Will need transition O2 at home. (3) DAYDAY (obstructive sleep apnea) Code(s): G47.33 - OBSTRUCTIVE SLEEP APNEA (ADULT) (PEDIATRIC) Status: Suspected Comment: Needs outpatient sleep study (4) Mediastinal mass Status: Acute Comment: Right sided, lymphadenopathy vs. primary lung cancer, needs repeat CT as outpatient (5) Anxiety and depression Code(s): F41.9 - ANXIETY DISORDER, UNSPECIFIED; F32.9 - MAJOR DEPRESSIVE DISORDER, SINGLE EPISODE, UNSPECIFIED Status: Chronic (6) DM2 (diabetes mellitus, type 2) Status: Chronic (7) Dyslipidemia Code(s): E78.5 - HYPERLIPIDEMIA, UNSPECIFIED Status: Chronic (8) GERD (gastroesophageal reflux disease) Code(s): K21.9 - GASTRO-ESOPHAGEAL REFLUX DISEASE WITHOUT ESOPHAGITIS Status: Chronic (9) HTN (hypertension) Code(s): I10 - ESSENTIAL (PRIMARY) HYPERTENSION Status: Chronic (10) Hypothyroidism Code(s): E03.9 - HYPOTHYROIDISM, UNSPECIFIED Status: Chronic (11) Microcytic anemia Code(s): D50.9 - IRON DEFICIENCY ANEMIA, UNSPECIFIED Status: Chronic (12) Obesity (BMI 30-39.9) Code(s): E66.9 - OBESITY, UNSPECIFIED Status: Chronic - Plan cont current plan of care, respiratory therapy Patient discharge delayed due to family having to arrange home oxygen. -: Home today. * . - Discharge Day Encounter end time: 11:05
[2017-12-23] MEDS: Fluticasone Propionate Nasal Spray 16 gm Bottle NASAL SCH (12:04)
[2017-12-23 12:50] VITALS: BP 116/55; TEMP 98.2
--- NOTE | 2017-12-23 14:07 | PRG ---
DATE OF SERVICE: 12/23/2017 SERVICE: Pulmonary Medicine. INTERVAL HISTORY: The patient is doing fine from a respiratory standpoint. She denies any current chest pain, nausea, vomiting, fevers or chills. She got very tearful since I walked in the room. She started crying profusely. She indicated that her air conditioner was not currently working. It would be way too hot for her to be discharged from the hospital. As such, she is requesting to stay multiple days in order to get this thing addressed. I have told her that is not appropriate use of inpatient resources, and that if she needs to, she can stay with friends or get a hotel room. That being said, she has no respiratory complaints this morning. She continues to have a cough, although it is improving significantly. PHYSICAL EXAMINATION: VITAL SIGNS: Afebrile, pulse 96, blood pressure 116/55, respirations 18, saturation 92% on room air. GENERAL: The patient is awake, alert, no apparent distress. LUNGS: Decent air entry. There is no prolonged expiratory phase, wheezing, rhonchi, or crackles present. HEART: Normal rate, regular. ABDOMEN: Soft, nontender, nondistended. Bowel sounds are positive. MUSCULOSKELETAL: No cyanosis or clubbing. There is no pitting in the bilateral lower extremities. NEUROLOGIC: Grossly nonfocal. ASSESSMENT: 1. Acute hypoxic respiratory failure, resolved. 2. Acute pneumonia, resolved. 3. Sepsis without end organ damage. 4. Mild restrictive lung disease secondary to body habitus. 5. Acute bronchitis. 6. Obstructive sleep apnea, suspected DISCUSSION AND PLAN: The patient is stable for transition out of the hospital today. At this point, she has no further requirements for inpatient Pulmonary or Critical Care opinion, I will sign off. I would like for her to see me in clinic in 2-4 weeks in the outpatient setting, so that we can see whether or not she continues to need oxygen, and arrange for and in-lab sleep study, again. SULMA
== END 2017-12-23 15:00 | disposition home or self-care (01) | DRG 871 ==
LOC: ERS 03:41 → 2NO 04:35
PROVIDERS: ADMIT Internal Medicine; ATTEND Internal Medicine
DX: A41.9 Sepsis, unspecified organism (principal); J96.01 Acute respiratory failure with hypoxia; J15.9 Unspecified bacterial pneumonia; J98.59 Other diseases of mediastinum, not elsewhere classified; I47.1 Supraventricular tachycardia; E11.9 Type 2 diabetes mellitus without complications; I10 Essential (primary) hypertension; E78.5 Hyperlipidemia, unspecified; F32.9 Major depressive disorder, single episode, unspecified; Z79.899 Other long term (current) drug therapy; Z79.84 Long term (current) use of oral hypoglycemic drugs; Z79.82 Long term (current) use of aspirin; E03.9 Hypothyroidism, unspecified; J20.9 Acute bronchitis, unspecified; G47.33 Obstructive sleep apnea (adult) (pediatric); F41.9 Anxiety disorder, unspecified; K21.9 Gastro-esophageal reflux disease without esophagitis; E66.9 Obesity, unspecified; D50.9 Iron deficiency anemia, unspecified; Z68.31 Body mass index [BMI] 31.0-31.9, adult
CPT/HCPCS: 36415; 36416; 71045; 71275; 80048; 80053; 80069; 82550; 82553; 82805; 83540; 83550; 83605; 83690; 83735; 83880; 84484; 85007; 85025; 85027; 87040; 87804; 93005; 94640; 94644; 96361; 96365; 96367; 96374; A4216; G8978-GP-CM; G8979-GP-CM; G8980-GP-CM; J1100; J1650; J1940; J1956; J2920; J3475; J7050; J7611; J7620

== ENCOUNTER 2018-02-05 14:57 | Outpatient (CLI) | payer MEDICARE, MEDICAID | END 2018-02-05 14:58 | disposition home or self-care (01) | LOC: BICULT 14:57 | PROVIDERS: ATTEND Family Medicine | DX: R10.30 Lower abdominal pain, unspecified (principal) | CPT/HCPCS: 76856 ==

== ENCOUNTER 2018-07-16 13:14 | Outpatient (CLI) | payer MEDICARE, MEDICAID ==
--- NOTE | 2018-07-16 16:24 | RAD ---
PA AND LATERAL CHEST: 07/16/18 HISTORY: Chronic bronchitis. COMPARISON: 02/18/17 study. The heart size appears slightly enlarged. The lungs show some mild chronic appearing change. Small hi atal hernia is noted. There is no acute infiltrative process seen. IMPRESSION: 1. Cardiomegaly with some minimal chronic appearing interstitial lung changes seen in the lung b ases. No focal infiltrate. 2. Hiatal hernia. POS: [facility]
== END 2018-07-16 13:15 | disposition home or self-care (01) ==
LOC: BICRAD 13:14
PROVIDERS: ATTEND Family Medicine
DX: J41.1 Mucopurulent chronic bronchitis (principal); J20.9 Acute bronchitis, unspecified; I51.7 Cardiomegaly; K44.9 Diaphragmatic hernia without obstruction or gangrene
CPT/HCPCS: 36415; 71046; 83880; 85007; 85027

== ENCOUNTER 2018-08-05 19:30 | Outpatient (CLI) | payer MEDICARE, MEDICAID | END 2018-08-05 19:31 | disposition home or self-care (01) | LOC: SLEEPLAB 19:30 | PROVIDERS: ATTEND Family Medicine | DX: G47.33 Obstructive sleep apnea (adult) (pediatric) (principal) | CPT/HCPCS: 95811 ==

== ENCOUNTER 2018-08-13 22:58 | Observation (INO) | payer MEDICARE, MEDICAID ==
[2018-08-13 23:53] LABS: #Basophils 0.1 thou/uL (0.0-0.2); #Eosinphils 0.8 thou/uL (0.0-0.7); #Lymphocytes 2.6 thou/uL (1.20-3.40); #Monocytes 0.6 thou/uL (0.11-0.59); #Neutrophils 6.6 thou/uL (1.40-6.50); %Eosinophils 7.2 % (0.0-10.0); %Lymphocytes 24.2 % (21.0-51.0); %Monocytes 5.3 % (0.0-10.0); %Neutrophils 62.4 % (42.0-75.0); Hemoglobin 12.1 g/dL (12.0-16.0); Mean Corpuscular HGB CONC 32.6 g/dL (32.0-36.0); Mean Corpuscular Hemoglobin 26.3 pg (27.0-31.0); Mean Corpuscular Volume 80.5 fL (78.0-98.0); Mean Platelet Volume 7.5 fL (7.4-10.4); Platelet Count 360 thou/uL (130-400); White Blood Cell (WBC) Count 10.6 thou/uL (4.8-10.8)
[2018-08-14 00:16] LABS: ALT (SGPT) 12 U/L (8-55); AST (SGOT) 12 U/L (5-34); Albumin 3.7 g/dL (3.4-4.8); Alkaline Phosphatase 137 U/L (40-150); Anion Gap 12 mmol/L (10-20); BUN (Urea Nitrogen) 26 mg/dL (9.8-20.1); Bilirubin, Total 0.2 mg/dL (0.2-1.2); Calc. Creatinine Clearance 0 mL/min (70-130); Calcium 9.3 mg/dL (7.8-10.44); Carbon Dioxide 26 mmol/L (23-31); Chloride 103 mmol/L (98-107); Estimated GFR-MDRD 61; Globulin 2.7 g/dL (2.4-3.5); Glucose 107 mg/dL (83-110); Potassium 3.8 mmol/L (3.5-5.1); Protein, Total 6.4 g/dL (6.0-8.3); Sodium 137 mmol/L (136-145)
[2018-08-14 02:20] LABS: Bilirubin Negative (Negative); Blood, Urine Negative (Negative); Clarity CLEAR (Clear); Glucose, Urine (Dipstick) Negative (Negative); Leukocyte Negative (Negative); Nitrite Negative (Negative); Protein, Urine (Dipstick) Negative (Neg-Trace); Specific Gravity, Urine 1.009 (1.002-1.036); Urobilinogen 0.2 mg/dL (0.2-1.0)
[2018-08-14] MEDS ORDERED: Magnesium 2 GM/50 ML BAG (IN WATER) ONE (02:26)
[2018-08-14 03:51] LABS: Troponin I Less than 0.010 ng/mL (< 0.028)
[2018-08-14 07:26] LABS: Troponin I Less than 0.010 ng/mL (< 0.028)
--- NOTE | 2018-08-14 08:13 | RAD ---
CHEST ONE VIEW: HISTORY: Cough. COMPARISON: Radiograph from 07/16/2018. FINDINGS: Mild atelectatic changes in both lung bases. Small left effusion. No pneumothorax. The cardiomedia stinal silhouette is similar. IMPRESSION: No significant change in the radiographic appearance of the chest. POS: [facility]
--- NOTE | 2018-08-14 08:42 | CT ---
PRELIMINARY REPORT/[facility]/EMERGENTY AFTER-HOURS PROCEDURE CT Angiography Chest With Contrast EXAM DATE/TIME: 08/14/2018 3:52 AM CLINICAL HISTORY: 73 years old, female; Pain and signs and symptoms; Cough; Chest pain; Patient HX: Chest pain; Patient presents with single episode of pre-syncope tonight, brought in by daughters. Patient feels better n ow. Patient sates recently treated with bronchitis 3 weeks ago. Patient was at home and had just stood up while watching tv and felt light headed. TECHNIQUE: Axial computed tomographic angiography images of the chest with intravenous contrast using CT angiogr aphy protocol. MIP reconstructed images were created and reviewed. COMPARISON: No relevant prior studies available. FINDINGS: Pulmonary arteries: No evidence of pulmonary embolus. Aorta: No aortic aneurysm. No aortic dissection. Lungs: Mucous plugging throughout most of the left lower lobe with mild mucous plugging in the right lower lobe and left upper lobe. Mild bilateral lower lobe cylindrical bronchiectasis. Mild bibasal wright bsegmental atelectasis. No mass or consolidation. Pleural space: No pneumothorax. No pleural effusion. Heart: Unremarkable. No significant pericardial effusion. Upper abdomen: Moderate hiatal hernia. Cholecystectomy. Lymph nodes: Unremarkable. No enlarged lymph nodes. Bones/joints: Unremarkable. No acute fracture. Soft tissues: Unremarkable. IMPRESSION: 1. No evidence of pulmonary embolus. 2. Mucous plugging in the left lower lobe and to lesser degree in the right lower and left upper lobe s. Thank you for allowing us to participate in the care of your patient. Dictated and Authenticated by: Duncan Duarte MD 08/14/2018 5:51 AM Central Time ([place] & [place]) FINAL REPORT: CT ARTERIOGRAM CHEST WITH IV CONTRAST AND 3D MIP IMAGING: PERFORMED ON AN EMERGENCY BASIS 08/14/2018 at 0353 HOURS HISTORY: Cough. Chest pain. Dyspnea. FINDINGS: I agree with the preliminary report by Dr. Duarte from [facility]. No CT evidence of pulmonary embolus. Large hiatal hernia. Multifocal infiltrate and mucus plugging. Less pronounced than on the previous exam from 12/17/2017. POS: [facility]
[2018-08-14] MEDS ORDERED: HumaLOG 300 UNITS/3 ML VIAL SC PRN ×2 (09:16)
[2018-08-14] MEDS ORDERED: Dextrose 5% in Water 1,000 ML IV PRN (09:16)
[2018-08-14] MEDS ORDERED: Guaifenesin DM 100-10/5 ML UDCUP PO PRN (09:16)
[2018-08-14] MEDS ORDERED: Benzonatate 100 MG CAP PO PRN (09:16)
[2018-08-14] MEDS ORDERED: Sodium Chloride 0.9% 1,000 ML IV SCH (09:16)
[2018-08-14] MEDS ORDERED: Acetaminophen 325 MG TAB PO PRN (09:16)
[2018-08-14] MEDS ORDERED: Dextrose 50% Abboject 50 ML SYRINGE SLOW IVP PRN (09:16)
[2018-08-14] MEDS ORDERED: Senokot S 8.6-50 MG TAB PO PRN (09:16)
--- NOTE | 2018-08-14 11:58 | HP ---
REASON FOR ADMISSION: Near-syncope, possible pneumonia. HISTORY OF PRESENTING ILLNESS: Please note majority of this history is obtained by talking to the patient's granddaughter, her name is Tangela, as the patient does not recall what happened yesterday. She apparently was in and out of consciousness around 10:00 p.m. She was also short of breath. She tried to stand up and felt dizzy and was about to fall, finally fell into her couch. The granddaughter states that she never lost consciousness, but was very close to it. She got concerned and called 911 and the patient was brought to emergency room. She had some cough, but no fever as such. She occasionally brings up sputum, but has no altered discoloration to it. No complaints of chest pain or palpitation. No complaints of any weakness in any of the extremities. She currently moves all 4. Currently, the patient is comfortable in the ER, bed 16. PAST MEDICAL AND SURGICAL HISTORY: The patient had a recent sleep study done 2 weeks back and has outpatient appointment to see Dr. Calix on the 07 September. The patient was found to have moderate obstructive sleep apnea on the sleep study. She has been recommended a CPAP, but the patient has not had a prescription for the same yet. Hypertension, diabetes mellitus type 2, dyslipidemia, chronic anemia, history of chronic cough/bronchitis/asthma, right rotator cuff surgery, right leg surgery, appendectomy, cholecystectomy, depression, and community-acquired pneumonia in December of 2017. CURRENT MEDICATIONS: The patient is on; 1. Aspirin 81 mg p.o. daily. 2. Lipitor 20 mg p.o. at bedtime. 3. Vitamin D3 2000 units p.o. daily. 4. Citalopram 10 mg p.o. daily. 5. Nexium 40 mg p.o. daily. 6. Levothyroxine 25 mcg p.o. daily. 7. Losartan with hydrochlorothiazide 100/25 mg 1 tablet daily. 8. Metformin 500 mg p.o. twice daily. ALLERGIES: NO KNOWN DRUG ALLERGIES. PERSONAL HISTORY: Does not abuse alcohol or drugs. No history of smoking. FAMILY HISTORY: Mother had dementia and was also diagnosed with an unknown cancer when she at the age of 86 years. Father in his 60s. He had severe rheumatoid arthritis. REVIEW OF SYSTEMS: CONSTITUTIONAL: Negative for weight loss or gain, ability to conduct usual activities. SKIN: Negative for rash, itching. EYES: Negative for double vision, pain. ENT/MOUTH: Negative for nose bleeding, neck stiffness, pain, tenderness. CARDIOVASCULAR: Negative for palpitations, dyspnea on exertion, orthopnea. RESPIRATORY: Negative for shortness of breath, wheezing, cough, hemoptysis, fever or night sweats. GASTROINTESTINAL: Negative for poor appetite, abdominal pain, heartburn, nausea , vomiting, constipation, or diarrhea. GENITOURINARY: Negative for urgency, frequency, dysuria, nocturia. MUSCULOSKELETAL: Negative for pain, swelling. NEUROLOGIC/PSYCHIATRIC: Negative for anxiety, depression. ALLERGY/IMMUNOLOGIC: Negative for skin rash, bleeding tendency. CODE STATUS: Full. PHYSICAL EXAMINATION: GENERAL: The patient is a 73-year-old female, who is currently not in any acute distress. VITAL SIGNS: Blood pressure 146/78, pulse 70 per minute, respiratory rate 16 per minute, temperature 98.4 degrees Fahrenheit, and saturating 94% on room air. NECK: Supple. No elevated JVD. HEENT: Eyes, extraocular muscles intact. Pupils are reacting to light. Oral cavity, mucous membranes are moist. No exudates or congestion. CARDIOVASCULAR SYSTEM: S1 and S2 heard. Regular rhythm. RESPIRATORY SYSTEM: Air entry 1+ bilateral. Scattered rhonchi, plus bilateral. ABDOMEN: Soft bowel sounds heard. No tenderness, rigidity, or guarding. EXTREMITIES: No peripheral edema or calf tenderness. VASCULAR SYSTEM: Peripheral pulses 1+ bilateral. No ischemic ulcerations or gangrene. CENTRAL NERVOUS SYSTEM: No gross focal deficit noted. The patient is moving all 4 extremities. PSYCHIATRIC SYSTEM: The patient's mood is euthymic. No hallucinations or delusions. LABORATORY DATA: White count of 10, H and H 12 and 37, platelet count 360, MCV is 80 with 62% neutrophils. D-dimer 0.27. Troponin x3 negative. BNP 19. BUN 26 and creatinine 0.9. Electrolytes stable. Liver enzymes within normal limits. Albumin is 3.7. UA shows no evidence of infection. CT angio of chest done shows no evidence of PE. There is patchy infiltrate/mucous plugging on both sides. She also has a large hiatal hernia. EKG done shows normal sinus rhythm at 73 beats per minute that had previously seen with nonspecific ST-T wave changes. CLINICAL IMPRESSION AND PLAN: The patient will be under observation on telemetry for near syncope with CAT scan findings suggestive of patchy infiltrate/mucus plugging in both lungs. She will be on DuoNeb's with Levaquin. We will obtain orthostatic blood pressures. She became dizzy after she was about to get up from a sitting down position and fell onto her couch, but did not really lose consciousness, but per granddaughter, she was very close to it. In view of this , we will give her 1 L of normal saline at 100 mL/h. We will continue her home dose of aspirin, Lipitor, Celexa, levothyroxine, and metformin as before. We will also consult Dr. Calix, her pot room supervisor during her stay here. Please note, the patient has been diagnosed with moderate sleep apnea on a sleep study, which was done on the 05 of August. She is to get a prescription for CPAP likely after seeing Dr. Calix on the 07 of September. Job ID: [id number] MTDD
[2018-08-14] MEDS ORDERED: ISOVUE-370 76%-LOCM 1 ML ONE (13:28)
[2018-08-14] MEDS ORDERED: Levofloxacin 500 mg/D5W 100 ml Premix Bag ONE (15:56)
[2018-08-14 17:43] VITALS: BMI 34.9
[2018-08-14] MEDS: metFORMIN 500 MG TAB PO SCH (18:03)
[2018-08-14] MEDS: Mometasone 100 MCG HFA INHALER INH SCH (19:19)
[2018-08-14] MEDS ORDERED: Atorvastatin Calcium 20 MG TAB PO SCH (21:00)
[2018-08-15 04:19] VITALS: BP 120/56; TEMP 97.6
[2018-08-15 05:19] LABS: #Basophils 0.1 thou/uL (0.0-0.2); #Eosinphils 0.6 thou/uL (0.0-0.7); #Monocytes 0.5 thou/uL (0.11-0.59); #Neutrophils 4.8 thou/uL (1.40-6.50); %Basophils 0.6 % (0.0-1.0); %Eosinophils 7.8 % (0.0-10.0); %Lymphocytes 25.4 % (21.0-51.0); %Monocytes 5.7 % (0.0-10.0); %Neutrophils 60.6 % (42.0-75.0); Hemoglobin 11.4 g/dL (12.0-16.0); Mean Corpuscular HGB CONC 32.3 g/dL (32.0-36.0); Mean Corpuscular Hemoglobin 26.2 pg (27.0-31.0); Mean Corpuscular Volume 81.2 fL (78.0-98.0); Mean Platelet Volume 7.7 fL (7.4-10.4); Platelet Count 333 thou/uL (130-400); RBC Distribution Width 14.9 % (11.5-14.5); Red Blood Cell (RBC) Count 4.36 mill/uL (4.20-5.40); White Blood Cell (WBC) Count 7.9 thou/uL (4.8-10.8)
[2018-08-15 05:50] LABS: Anion Gap 11 mmol/L (10-20); BUN (Urea Nitrogen) 18 mg/dL (9.8-20.1); Calc. Creatinine Clearance 77 mL/min (70-130); Calcium 8.5 mg/dL (7.8-10.44); Carbon Dioxide 25 mmol/L (23-31); Chloride 104 mmol/L (98-107); Estimated GFR-MDRD 70; Glucose 111 mg/dL (83-110); Potassium 3.9 mmol/L (3.5-5.1); Sodium 136 mmol/L (136-145)
[2018-08-15] MEDS ORDERED: Levothyroxine Sodium 25 MCG TAB PO SCH (06:00)
[2018-08-15] MEDS: Mometasone 100 MCG HFA INHALER INH SCH (07:26)
--- NOTE | 2018-08-15 07:26 | PDOC.PN ---
- Subjective Encounter Start Date: 08/15/18 Encounter Start Time: 09:50 Subjective: Patient reports feeling better, though still a bit weak. Ambulating -: well to the bathroom without presyncopal symptoms. Orthostatics -: normal. No chest pain. No SOB. No fever. No cough. - Objective Resuscitation Status - Order Detail: 08/14/18 09:12 Resuscitation Status Routine Resuscitation Status: FULL: Full Resuscitation MAR Reviewed: Yes Vital Signs & Weight: Vital Signs (12 hours) Temp Pulse Resp BP Pulse Ox 08/15/18 07:12 91 L 08/15/18 07:06 71 20 97 08/15/18 04:18 97.6 F 72 18 120/56 L 93 L 08/14/18 23:23 95 Weight Weight 173 lb 3.2 oz I&O: 08/14/18 08/15/18 08/16/18 06:59 06:59 06:59 Intake Total 1760 Balance 1760 Result Diagrams: 08/15/18 04:39 08/15/18 04:39 Additional Labs: Accuchecks 08/14/18 08/14/18 08/14/18 20:10 17:12 15:51 POC Glucose 165 H 119 H 111 H 08/14/18 08/14/18 12:19 08:35 POC Glucose 95 90 Phys Exam - Physical Examination Constitutional: NAD HEENT: moist MMs Respiratory: no wheezing, no rales, no rhonchi Cardiovascular: RRR, no significant murmur Gastrointestinal: soft, non-tender, positive bowel sounds Musculoskeletal: no edema Neurological: non-focal, moves all 4 limbs Psychiatric: normal affect, A&O x 3 Dx/Plan (1) Pre-syncope Status: Acute Comment: Patient with normal orthostatics. (2) DAYDAY (obstructive sleep apnea) Code(s): G47.33 - OBSTRUCTIVE SLEEP APNEA (ADULT) (PEDIATRIC) Status: Suspected Comment: Some mucus plugging on CT, but improved from previously (3) DM2 (diabetes mellitus, type 2) Status: Chronic (4) Dyslipidemia Code(s): E78.5 - HYPERLIPIDEMIA, UNSPECIFIED Status: Chronic (5) HTN (hypertension) Code(s): I10 - ESSENTIAL (PRIMARY) HYPERTENSION Status: Chronic (6) Hypothyroidism Code(s): E03.9 - HYPOTHYROIDISM, UNSPECIFIED Status: Chronic (7) Chronic bronchitis Code(s): J42 - UNSPECIFIED CHRONIC BRONCHITIS Status: Chronic Comment: CT improved from December 2017 - Plan D/C home today, f/u with Dr. Calix in his office -: Patient did have a few PACs on telemetry which is not suprising -: given her DAYDAY. She needs to get on CPAP at home as soon -: as she is able. * . - Discharge Day Encounter end time: 10:10
[2018-08-15] MEDS: metFORMIN 500 MG TAB PO SCH (08:29)
[2018-08-15] MEDS ORDERED: Enoxaparin Sodium 40 MG/0.4 ML SYRINGE SC SCH (09:00)
[2018-08-15] MEDS ORDERED: Citalopram 10 MG TAB PO SCH (09:00)
[2018-08-15] MEDS ORDERED: Aspirin 81 mg Enteric Coated Tablet PO SCH (09:00)
--- NOTE | 2018-08-15 18:30 | EKG ---
Test Reason : Blood Pressure : / mmHG Vent. Rate : 073 BPM Atrial Rate : 073 BPM P-R Int : 124 ms QRS Dur : 066 ms QT Int : 380 ms P-R-T Axes : 022 -20 000 degrees QTc Int : 418 ms Sinus rhythm with marked sinus arrhythmia with occasional Premature ventricular complexes Cannot rule out Anterior infarct , age undetermined Abnormal ECG Confirmed by MIL GARCIA DO ([id number]), online content editor YUKI KUMAR ([id number]) on 08/15/2018 6:29:40 PM Referred By: Confirmed By:MIL GARCIA DO
--- NOTE | 2018-08-16 05:02 | DIS ---
DATE OF ADMISSION: 08/14/2018 DATE OF DISCHARGE: 08/15/2018 PRIMARY CARE PHYSICIAN: Dr. Shannon Ta. REASON FOR ADMISSION: Near syncope, possible pneumonia. DIAGNOSES AT DISCHARGE: 1. Presyncope, resolved. 2. Chronic bronchitis with improved CT changes from December of 2017. Pneumonia ruled out. 3. Obstructive sleep apnea. 4. Diabetes mellitus type 2. 5. Dyslipidemia. 6. Hypertension. 7. Hypothyroidism. CONSULTATIONS: None. PROCEDURES: CT angio of the chest showing no evidence of pulmonary embolism. She did have a large hiatal hernia and she had multifocal infiltrate and mucous plugging. This is actually improved from December of 2017. No evidence for acute pneumonia. SUMMARY OF HOSPITAL COURSE: This is a 73-year-old female. She presented with reports of feeling short of breath, in and out of consciousness and felt dizzy and about to fall on to a couch per her granddaughter's report. She was evaluated in the emergency room and had CT as above. Her D-dimer, troponin, and brain natriuretic peptide were all normal. CBC was normal and had anemia. She had orthostatics that were negative. She has been observed in the hospital overnight on telemetry. She did have a few PACs which sounds pressing on her obstructive sleep apnea, but no atrial fibrillation or other dangerous arrhythmias. The patient has been ambulating by herself to the bathroom without dizziness or difficulty. She now remembers what happened yesterday. She states that she was sitting and watching TV and she felt dizzy like she was going to pass out, so she got up, went and turned off the TV and then she was walking back, she tripped on a table and fell over into the couch. She denies actual syncope or loss of consciousness. The patient was doing well the day of discharge and is being discharged home. DISCHARGE MANAGEMENT: Discharged home. MEDICATIONS: Resume all home medications: 1. Qvar one puff twice a day. 2. Vitamin D3 2000 units daily. 3. Calcium citrate/vitamin-D 2 tablets daily. 4. Aspirin 81 mg daily. 5. Levothyroxine 25 mcg daily. 6. Atorvastatin 20 mg daily. 7. Fluticasone 1 spray each nostril daily. 8. Ferrous sulfate 1 tab daily. 9. Citalopram 10 mg daily. 10. Furosemide 20 mg daily. 11. Nexium 40 mg daily. 12. Metformin 500 mg twice a day. 13. Losartan/hydrochlorothiazide 100/25 mg one tablet daily. FOLLOWUP: Follow up with Dr. Calix as scheduled in August for ordering home CPAP and with Dr. Shannon Ta in the next week. ACTIVITY: As tolerated. DIET: Diabetic diet. Job ID: [id number]
== END 2018-08-15 11:35 | disposition home or self-care (01) ==
LOC: ERS 22:58 → ERHOLD 08-14 03:29 → 2SW 08-14 16:45
PROVIDERS: ADMIT Internal Medicine; ATTEND Internal Medicine
DX: R55 Syncope and collapse (principal); G47.33 Obstructive sleep apnea (adult) (pediatric); I10 Essential (primary) hypertension; E11.9 Type 2 diabetes mellitus without complications; E78.5 Hyperlipidemia, unspecified; D64.9 Anemia, unspecified; F32.9 Major depressive disorder, single episode, unspecified; J42 Unspecified chronic bronchitis; E03.9 Hypothyroidism, unspecified; Z79.82 Long term (current) use of aspirin; Z79.84 Long term (current) use of oral hypoglycemic drugs; Z79.899 Other long term (current) drug therapy
CPT/HCPCS: 71045; 71275; 80048; 80053; 81003; 82962; 83735; 83880; 84484 ×2; 85025 ×2; 85379; 87040; 87086; 87804 ×2; 93005; 94640 ×5; 94664; 96361 ×3; 96365; 96367; 96372; 97139; 99285; G0378 ×2; 36415; 36416; J1650; J1956; J7620

== ENCOUNTER 2018-10-17 13:41 | Inpatient (IN) | payer MEDICARE ==
[2018-10-17 14:41] LABS: #Basophils 0.1 thou/uL (0.0-0.2); #Eosinphils 1.6 thou/uL (0.0-0.7); #Lymphocytes 2.3 thou/uL (1.20-3.40); #Monocytes 0.4 thou/uL (0.11-0.59); #Neutrophils 4.8 thou/uL (1.40-6.50); %Basophils 0.8 % (0.0-1.0); %Eosinophils 17.4 % (0.0-10.0); %Lymphocytes 25.2 % (21.0-51.0); %Monocytes 4.6 % (0.0-10.0); Hemoglobin 13.5 g/dL (12.0-16.0); Mean Corpuscular Hemoglobin 26.7 pg (27.0-31.0); Mean Corpuscular Volume 83.5 fL (78.0-98.0); Mean Platelet Volume 8.3 fL (7.4-10.4); Platelet Count 290 thou/uL (130-400); RBC Distribution Width 14.8 % (11.5-14.5); Red Blood Cell (RBC) Count 5.05 mill/uL (4.20-5.40); White Blood Cell (WBC) Count 9.2 thou/uL (4.8-10.8)
--- NOTE | 2018-10-17 14:42 | RAD ---
CHEST 1 VIEW: Date: 10/17/18 HISTORY: Chest pain. Dyspnea. COMPARISON: 08/14/18. FINDINGS: Cardiac silhouette is magnified by projection. Pulmonary vasculature is slightly engorged with mild b ilateral perihilar infiltrate. Mediastinum is midline. No lobar consolidation or evidence of pneumoth orax. Postoperative changes right shoulder. hospital monitor leads overlie the chest. IMPRESSION: Mild pulmonary vascular congestion. POS: [facility]
[2018-10-17] MEDS ORDERED: methylPREDNISolone Sod Succ/PF 125 MG/2 ML VIAL ONE ×2 (14:56→14:59)
[2018-10-17 15:03] LABS: ALT (SGPT) 12 U/L (8-55); AST (SGOT) 16 U/L (5-34); Albumin 4.3 g/dL (3.4-4.8); Alkaline Phosphatase 136 U/L (40-150); Anion Gap 16 mmol/L (10-20); BUN (Urea Nitrogen) 25 mg/dL (9.8-20.1); Bilirubin, Total 0.5 mg/dL (0.2-1.2); CK (CPK) 63 U/L (29-168); Calc. Creatinine Clearance 0 mL/min (70-130); Calcium 10.1 mg/dL (7.8-10.44); Carbon Dioxide 23 mmol/L (23-31); Chloride 100 mmol/L (98-107); Estimated GFR-MDRD 56; Glucose 114 mg/dL (83-110); Lipase 23 U/L (8-78); Potassium 3.9 mmol/L (3.5-5.1); Protein, Total 7.3 g/dL (6.0-8.3); Sodium 135 mmol/L (136-145)
[2018-10-17 17:12] LABS: Troponin I Less than 0.010 ng/mL (< 0.028)
[2018-10-17] MEDS ORDERED: Nitroglycerin 0.4 MG TAB (25 Tab Bottle) SL PRN (17:17)
[2018-10-17] MEDS ORDERED: HYDROcodone/Acetaminophen 7.5/325 mg Tablet PO PRN (17:20)
[2018-10-17] MEDS ORDERED: Dextrose 5% in Water 1,000 ML IV PRN (17:31)
[2018-10-17] MEDS ORDERED: Dextrose 50% Abboject 50 ML SYRINGE SLOW IVP PRN (17:31)
[2018-10-17] MEDS ORDERED: methylPREDNISolone Sod Succ 40 MG VIAL IVP SCH (18:00)
--- NOTE | 2018-10-17 19:15 | HP ---
CHIEF COMPLAINT: Shortness of breath and chest pain. HISTORY OF PRESENT ILLNESS: This patient is a 73-year-old female, who presented via the emergency department with a complaint of shortness of breath. The patient reports that for the last 3 weeks, she has been having some slight respiratory difficulties, and for the past week, she has been having cough and some chest discomfort in the middle of her chest, which she describes as a pressure-type sensation, seemed to increase about 3 days ago and then worsened this morning, prompting her to come to the emergency department. The patient reports that it is not positional and does not seem to be alleviated with anything other than her taking 3 aspirins today. The patient's chest pain had fully resolved by the time she arrived to the emergency department. The patient has not had any ill contacts, and she has not had relief using her home inhalers. REVIEW OF SYSTEMS: Notable for cough, which is productive of whitish sputum. She has reported some wheezing. All other systems were reviewed, and all pertinent positives and negatives noted in the history of present illness. PAST MEDICAL HISTORY: 1. Notable for obstructive sleep apnea. The patient is not using the CPAP machine, reports she cannot afford it. 2. She has hypertension. 3. Diabetes mellitus type 2. 4. Dyslipidemia. 5. Chronic anemia. 6. Chronic bronchitis. 7. Asthma with some history of anxiety and depression. 8. GERD. 9. Hiatal hernia. 10. Vitamin D deficiency. 11. Hypothyroidism. 12. Chronic anemia. PAST SURGICAL HISTORY: 1. Right rotator cuff. 2. Right leg. 3. She also previously reports a history of appendectomy and cholecystectomy. FAMILY HISTORY: Notable for hypertension. Her mother also had dementia and an unknown cancer, dying at 86. Father in his 60s. He had severe rheumatoid arthritis. SOCIAL HISTORY: The patient is a nonsmoker, nondrinker, and nondrug user. She is . She is a full code, and her daughter, Jarocho Rodriguez, is her surrogate decision maker. ER COURSE: The patient received nebulizer treatments and steroids both en route in the emergency department, continues to have some degree of hypoxia necessitating her admission. ALLERGIES: NONE. CURRENT MEDICATIONS: 1. Nexium 40 mg daily. 2. Atorvastatin 20 mg daily. 3. Citalopram 10 mg daily. 4. Metformin 500 mg b.i.d. 5. Levothyroxine 25 mcg daily. 6. Losartan-HCTZ 100-25 one p.o. daily. 7. Aspirin 81 mg daily. 8. Vitamin D3 of 2000 units daily. 9. Albuterol inhaler 2 puffs b.i.d. p.r.n. 10. Cetirizine 10 mg p.o. daily. 11. Hydrocodone-acetaminophen 7.5-325 q.6 hours p.r.n. 12. Xopenex nebulizer p.r.n. PHYSICAL EXAMINATION: VITAL SIGNS: Most recent vital signs; BP 122/66, pulse 92, respirations 22, oxygen sat 96% on 3 L. GENERAL APPEARANCE: Age-appropriate female, in no distress. She is awake, alert, oriented, pleasant, and cooperative. HEENT: PERRL. No OP lesion. She does have a rather small airway. NECK: Supple and symmetric without lymphadenopathy, JVD, or carotid bruits. HEART: Regular rate and rhythm without murmurs, gallops, or rubs. LUNGS: Diminished, slightly more so on the left base. She has modest scattered expiratory wheezes. No significant rales. ABDOMEN: Soft, nontender, and nondistended. Positive bowel sounds. No masses. No organomegaly. EXTREMITIES: No cyanosis, clubbing, or edema. Slightly diminished pulses in the feet, but present. They are warm and dry. SKIN: Reveals no rashes. PSYCHIATRIC: The patient has normal affect and behavior. NEUROLOGICAL: She appears to be grossly intact with no focal deficits. LABORATORY DATA: White count 9.2, hemoglobin 13.5, platelets 290. Sodium 135, potassium 3.9, chloride 100, CO2 is 23, BUN 25, creatinine 0.97, glucose 114, calcium 10.1, alkaline phosphatase 136, AST 16, ALT 12, CK 63. Troponin less than 0.01 x2. BNP 10.6, lipase 23. Chest x-ray reveals mild pulmonary vascular congestion. IMPRESSION AND PLAN: 1. Chronic obstructive pulmonary disease exacerbation. This patient has history of some COPD and asthma. She has hypoxia with respiratory difficulties and productive cough with clear to white sputum for the last couple of weeks. We will keep her in the hospital with nebulizer treatments, steroids, and we will hold off on any antibiotics at the moment. She does not respond quickly. We may need to add some inhaled steroids with a long-acting beta agonist. 2. Chest pain appears to be atypical. Her EKG does not reveal significant evidence of ischemic disease. She does have some subtle evidence of pulmonary vascular congestion on her chest x-ray. She has echo, it was performed in 2017, which revealed an ejection fraction of 55% to 60%, but there was a suggestion of some diastolic dysfunction. However, the patient has a very low BNP. We will continue serial troponins and telemetry. 3. Diabetes mellitus. We will continue with her usual home regimen. We will add Accu-Cheks and sliding scale as indicated. 4. Hypertension. Continue with her usual losartan-HCTZ. 5. Hyperlipidemia. Continue atorvastatin. 6. Hypothyroidism. Continue levothyroxine. Job ID: [id number]
[2018-10-17 21:08] LABS: Troponin I Less than 0.010 ng/mL (< 0.028)
[2018-10-17] MEDS: HumaLOG 300 UNITS/3 ML VIAL SC PRN (21:52)
[2018-10-17] MEDS: Atorvastatin Calcium 20 MG TAB PO SCH (21:54)
[2018-10-17] MEDS: methylPREDNISolone Sod Succ 40 MG VIAL IVP SCH (22:01)
[2018-10-17 22:57] VITALS: BMI 33.7
[2018-10-18] MEDS: methylPREDNISolone Sod Succ 40 MG VIAL IVP SCH ×4 (04:20→21:14)
[2018-10-18] MEDS: Levothyroxine Sodium 25 MCG TAB PO SCH (05:43)
[2018-10-18 05:44] LABS: #Lymphocytes 0.8 thou/uL (1.20-3.40); #Neutrophils 5.1 thou/uL (1.40-6.50); %Basophils 0.2 % (0.0-1.0); %Eosinophils 0.1 % (0.0-10.0); %Monocytes 0.4 % (0.0-10.0); %Neutrophils 85.3 % (42.0-75.0); Hemoglobin 13.2 g/dL (12.0-16.0); Mean Corpuscular HGB CONC 32.4 g/dL (32.0-36.0); Mean Corpuscular Hemoglobin 26.7 pg (27.0-31.0); Mean Corpuscular Volume 82.4 fL (78.0-98.0); Mean Platelet Volume 8.2 fL (7.4-10.4); Platelet Count 303 thou/uL (130-400); RBC Distribution Width 14.6 % (11.5-14.5); Red Blood Cell (RBC) Count 4.95 mill/uL (4.20-5.40)
[2018-10-18 06:02] LABS: Anion Gap 15 mmol/L (10-20); BUN (Urea Nitrogen) 26 mg/dL (9.8-20.1); Calc. Creatinine Clearance 68 mL/min (70-130); Calcium 10.1 mg/dL (7.8-10.44); Carbon Dioxide 21 mmol/L (23-31); Chloride 101 mmol/L (98-107); Estimated GFR-MDRD 63; Glucose 190 mg/dL (83-110); Potassium 4.4 mmol/L (3.5-5.1); Sodium 133 mmol/L (136-145)
[2018-10-18] MEDS: metFORMIN 500 MG TAB PO SCH ×2 (08:52→16:42)
[2018-10-18] MEDS: Loratadine 10 MG TAB PO SCH (08:52)
[2018-10-18] MEDS: Citalopram 10 MG TAB PO SCH (08:52)
[2018-10-18] MEDS: Losartan/Hydrochlorothiazide 100 mg/25 mg Tablet PO SCH (08:52)
[2018-10-18] MEDS: Aspirin 81 mg Enteric Coated Tablet PO SCH (08:52)
[2018-10-18] MEDS ORDERED: cefTRIAXone\\ROCEPHIN 500 MG in Sodium Chloride 0.9% 0 ML IVPB SCH (13:00)
--- NOTE | 2018-10-18 15:40 | PDOC.PN ---
- Subjective Encounter Start Date: 10/18/18 Encounter Start Time: 11:00 Feeling about the same. She is very clear that the only chest pain she has had is related to the cough. Still has the cough. Has some epigastric pain due to hiatal hernia. - Objective Resuscitation Status - Order Detail: 10/17/18 17:14 Resuscitation Status Routine Resuscitation Status: FULL: Full Resuscitation Vital Signs & Weight: Vital Signs (12 hours) Temp Pulse Resp BP Pulse Ox 10/18/18 12:36 75 16 94 L 10/18/18 11:36 98.4 F 95 18 114/65 94 L 10/18/18 07:21 97.4 F L 91 15 114/65 93 L 10/18/18 06:36 76 16 95 10/18/18 04:00 98 F 90 20 165/86 H 96 Weight Weight 168 lb 1.6 oz I&O: 10/17/18 10/18/18 10/19/18 06:59 06:59 06:59 Intake Total 240 240 Output Total 250 Balance -10 240 Result Diagrams: 10/18/18 04:55 10/18/18 04:55 Additional Labs: Accuchecks 10/18/18 10:33 POC Glucose 235 H Phys Exam - Physical Examination Constitutional: NAD Diffuse rales and wheezes. Diminished air exchange. Cardiovascular: RRR, no significant murmur Gastrointestinal: soft, no distention, positive bowel sounds Slight TTP in epigastrium. Musculoskeletal: no edema Psychiatric: normal affect, A&O x 3 Skin: no rash Dx/Plan (1) COPD (chronic obstructive pulmonary disease) with acute bronchitis Code(s): J44.0 - CHRONIC OBSTRUCTIVE PULMON DISEASE W ACUTE LOWER RESP INFCT; J20.9 - ACUTE BRONCHITIS, UNSPECIFIED Status: Acute (2) DM2 (diabetes mellitus, type 2) Status: Chronic (3) Dyslipidemia Code(s): E78.5 - HYPERLIPIDEMIA, UNSPECIFIED Status: Chronic (4) HTN (hypertension) Code(s): I10 - ESSENTIAL (PRIMARY) HYPERTENSION Status: Chronic (5) Hypothyroidism Code(s): E03.9 - HYPOTHYROIDISM, UNSPECIFIED Status: Chronic - Plan * Continue nebs, oxygen, steroids. * Continue IV Rocephin. * Convinced her CP is non-cardiac. Trops all negative. * Transfer to floor off tele. * Inpatient as she clearly needs additional time to treat the COPD and bronchitis. * Sats are improving.
[2018-10-18] MEDS: cefTRIAXone\\ROCEPHIN 1 GM in Sodium Chloride 0.9% 100 ML IVPB SCH (15:54)
[2018-10-18] MEDS: Atorvastatin Calcium 20 MG TAB PO SCH (21:03)
[2018-10-18] MEDS: HumaLOG 300 UNITS/3 ML VIAL SC PRN (21:13)
[2018-10-18] MEDS: Acetaminophen 325 MG TAB PO PRN (21:13)
[2018-10-19] MEDS: methylPREDNISolone Sod Succ 40 MG VIAL IVP SCH ×4 (03:30→20:16)
[2018-10-19] MEDS: Levothyroxine Sodium 25 MCG TAB PO SCH (05:11)
[2018-10-19] MEDS: Citalopram 10 MG TAB PO SCH (08:59)
[2018-10-19] MEDS: Aspirin 81 mg Enteric Coated Tablet PO SCH (08:59)
[2018-10-19] MEDS: Losartan/Hydrochlorothiazide 100 mg/25 mg Tablet PO SCH ×2 (08:59→09:09)
[2018-10-19] MEDS: metFORMIN 500 MG TAB PO SCH ×2 (08:59→17:28)
[2018-10-19] MEDS: Loratadine 10 MG TAB PO SCH (08:59)
--- NOTE | 2018-10-19 09:34 | PDOC.PN ---
- Subjective Encounter Start Date: 10/19/18 Encounter Start Time: 09:33 Subjective: cough, no fever, chills - Objective Resuscitation Status - Order Detail: 10/17/18 17:14 Resuscitation Status Routine Resuscitation Status: FULL: Full Resuscitation MAR Reviewed: Yes Vital Signs & Weight: Vital Signs (12 hours) Temp Pulse Resp BP Pulse Ox 10/19/18 08:00 97.9 F 102 H 24 H 104/59 L 91 L 10/19/18 07:43 90 14 10/19/18 03:40 97.6 F 107 H 20 115/62 94 L 10/18/18 23:53 97.5 F L 93 16 104/55 L 94 L 10/18/18 23:51 93 18 94 L Weight Weight 168 lb 1.6 oz I&O: 10/18/18 10/19/18 10/20/18 06:59 06:59 06:59 Intake Total 240 240 Output Total 250 Balance -10 240 Result Diagrams: 10/18/18 04:55 10/18/18 04:55 Additional Labs: Accuchecks 10/19/18 10/18/18 10/18/18 05:14 19:50 16:43 POC Glucose 172 H 222 H 171 H 10/18/18 10:33 POC Glucose 235 H Phys Exam - Physical Examination Neck: no JVD coarse, bilat rhonchi, wheezes Cardiovascular: RRR, no significant murmur Gastrointestinal: soft, positive bowel sounds Musculoskeletal: no edema Dx/Plan (1) COPD (chronic obstructive pulmonary disease) with acute bronchitis Code(s): J44.0 - CHRONIC OBSTRUCTIVE PULMON DISEASE W ACUTE LOWER RESP INFCT; J20.9 - ACUTE BRONCHITIS, UNSPECIFIED Status: Acute (2) Acute respiratory failure with hypoxia Code(s): J96.01 - ACUTE RESPIRATORY FAILURE WITH HYPOXIA Status: Acute Comment: Still hypoxic on room air. Will need transition O2 at home. (3) DM2 (diabetes mellitus, type 2) Status: Chronic Qualifiers: Diabetes mellitus terminal manager insulin use: without terminal manager use Diabetes mellitus complication status: without complication Qualified Code(s): E11.9 - Type 2 diabetes mellitus without complications (4) Dyslipidemia Code(s): E78.5 - HYPERLIPIDEMIA, UNSPECIFIED Status: Chronic (5) GERD (gastroesophageal reflux disease) Code(s): K21.9 - GASTRO-ESOPHAGEAL REFLUX DISEASE WITHOUT ESOPHAGITIS Status: Chronic (6) HTN (hypertension) Code(s): I10 - ESSENTIAL (PRIMARY) HYPERTENSION Status: Chronic Qualifiers: Hypertension type: essential hypertension Qualified Code(s): I10 - Essential (primary) hypertension (7) Hypothyroidism Code(s): E03.9 - HYPOTHYROIDISM, UNSPECIFIED Status: Chronic Qualifiers: Hypothyroidism type: unspecified Qualified Code(s): E03.9 - Hypothyroidism , unspecified - Plan CXR-FU -: cont nebs, steroids, antibx- add LABA * .
--- NOTE | 2018-10-19 11:16 | RAD ---
TWO VIEWS CHEST: DATE: 10/19/2018. PROVIDED CLINICAL HISTORY: COPD. FINDINGS: Comparison is made with the examination dated 10/17/[address] angiogram chest 08/14/2018. The cardiac silhouette is within normal limits in terms of size. Vascular calcification involves the aortic arch. There is obscuration of the medial left hemidiaphragm and increased retrocardiac densi ty suggesting left lower lobe atelectasis or consolidation. There is no evidence for pleural fluid o r pneumothorax. IMPRESSION: Left lower lobe atelectasis or consolidation. Given the mucus plugging seen on the CT angiogram and interval change with respect to the 10/17/2018 chest radiograph, lobar atelectasis on the basis of mucu s lugging should be considered. CT may be useful for further evaluation. POS: [facility]
[2018-10-19] MEDS: HumaLOG 300 UNITS/3 ML VIAL SC PRN (13:40)
--- NOTE | 2018-10-19 13:46 | PDOC.EVN ---
Event Note - Event Note Event Note: cxr- LLL infiltrate-Dx PNA, add iv zithromax
[2018-10-19] MEDS: Azithromycin 500 MG in Sodium Chloride 0.9% 250 ML 250 ML IVPB SCH (14:36)
[2018-10-19] MEDS: cefTRIAXone\\ROCEPHIN 1 GM in Sodium Chloride 0.9% 100 ML IVPB SCH (14:36)
[2018-10-19] MEDS ORDERED: Benzonatate 100 MG CAP PO SCH ×2 (18:30)
[2018-10-19] MEDS: Mometasone/Formoterol 120 PUFF INHALER INH SCH (19:17)
[2018-10-19] MEDS: Atorvastatin Calcium 20 MG TAB PO SCH (20:20)
[2018-10-19] MEDS: Acetaminophen 325 MG TAB PO PRN (20:22)
[2018-10-19] MEDS ORDERED: Milk Of Magnesia 30 ML UDCUP PO PRN (21:53)
[2018-10-20] MEDS: methylPREDNISolone Sod Succ 40 MG VIAL IVP SCH (02:19)
[2018-10-20] MEDS: Levothyroxine Sodium 25 MCG TAB PO SCH (06:32)
[2018-10-20] MEDS: Benzonatate 100 MG CAP PO SCH ×3 (06:33→20:19)
--- NOTE | 2018-10-20 07:55 | PDOC.PN ---
- Subjective Encounter Start Date: 10/20/18 Encounter Start Time: 07:54 Subjective: less cough, sob - Objective Resuscitation Status - Order Detail: 10/17/18 17:14 Resuscitation Status Routine Resuscitation Status: FULL: Full Resuscitation MAR Reviewed: Yes Vital Signs & Weight: Vital Signs (12 hours) Temp Pulse Resp BP Pulse Ox 10/20/18 04:24 97.6 F 89 16 120/61 90 L 10/20/18 00:48 97.7 F 98 18 116/59 L 90 L 10/20/18 00:20 95 18 94 L 10/19/18 20:00 98.6 F 100 18 115/62 91 L Weight Weight 168 lb 1.6 oz I&O: 10/19/18 10/20/18 10/21/18 06:59 06:59 06:59 Intake Total 240 1250 Balance 240 1250 Result Diagrams: 10/18/18 04:55 10/18/18 04:55 Additional Labs: Accuchecks 10/20/18 10/19/18 10/19/18 05:13 20:16 16:48 POC Glucose 133 H 166 H 136 H 10/19/18 10/17/18 11:26 21:05 POC Glucose 166 H 269 H Phys Exam - Physical Examination Neck: no JVD wheezes cleared, scant LLL rales Cardiovascular: RRR, no significant murmur Gastrointestinal: soft, positive bowel sounds Musculoskeletal: no edema Dx/Plan (1) COPD (chronic obstructive pulmonary disease) with acute bronchitis Code(s): J44.0 - CHRONIC OBSTRUCTIVE PULMON DISEASE W ACUTE LOWER RESP INFCT; J20.9 - ACUTE BRONCHITIS, UNSPECIFIED Status: Acute (2) Acute respiratory failure with hypoxia Code(s): J96.01 - ACUTE RESPIRATORY FAILURE WITH HYPOXIA Status: Acute Comment: Still hypoxic on room air. Will need transition O2 at home. (3) DM2 (diabetes mellitus, type 2) Status: Chronic Qualifiers: Diabetes mellitus assisted insulin use: without termite treater use Diabetes mellitus complication status: without complication Qualified Code(s): E11.9 - Type 2 diabetes mellitus without complications (4) Dyslipidemia Code(s): E78.5 - HYPERLIPIDEMIA, UNSPECIFIED Status: Chronic (5) GERD (gastroesophageal reflux disease) Code(s): K21.9 - GASTRO-ESOPHAGEAL REFLUX DISEASE WITHOUT ESOPHAGITIS Status: Chronic (6) HTN (hypertension) Code(s): I10 - ESSENTIAL (PRIMARY) HYPERTENSION Status: Chronic Qualifiers: Hypertension type: essential hypertension Qualified Code(s): I10 - Essential (primary) hypertension (7) Hypothyroidism Code(s): E03.9 - HYPOTHYROIDISM, UNSPECIFIED Status: Chronic Qualifiers: Hypothyroidism type: unspecified Qualified Code(s): E03.9 - Hypothyroidism , unspecified (8) PNA (pneumonia) Code(s): J18.9 - PNEUMONIA, UNSPECIFIED ORGANISM Status: Acute Qualifiers: Laterality: left Lung location: lower lobe of lung Comment: likely strep pneumonia - Plan cont iv antibx -: deescalatesteroids to po -: cont nebs, LABA * .
[2018-10-20] MEDS: Mometasone/Formoterol 120 PUFF INHALER INH SCH ×2 (08:09→18:50)
[2018-10-20] MEDS: Polyethylene Glycol 3350 17 GM Packet PO SCH (09:35)
[2018-10-20] MEDS: Loratadine 10 MG TAB PO SCH (09:36)
[2018-10-20] MEDS: predniSONE 20 MG TAB PO SCH (09:36)
[2018-10-20] MEDS: Losartan/Hydrochlorothiazide 100 mg/25 mg Tablet PO SCH (09:36)
[2018-10-20] MEDS: Citalopram 10 MG TAB PO SCH (09:36)
[2018-10-20] MEDS: Aspirin 81 mg Enteric Coated Tablet PO SCH (09:36)
[2018-10-20] MEDS: metFORMIN 500 MG TAB PO SCH ×2 (09:36→18:36)
[2018-10-20] MEDS: Azithromycin 500 MG in Sodium Chloride 0.9% 250 ML 250 ML IVPB SCH (13:33)
[2018-10-20] MEDS: cefTRIAXone\\ROCEPHIN 1 GM in Sodium Chloride 0.9% 100 ML IVPB SCH (13:33)
[2018-10-20] MEDS: Atorvastatin Calcium 20 MG TAB PO SCH (20:19)
[2018-10-21] MEDS: Acetaminophen 325 MG TAB PO PRN (06:04)
[2018-10-21] MEDS: Benzonatate 100 MG CAP PO SCH ×3 (06:04→22:08)
[2018-10-21] MEDS: Levothyroxine Sodium 25 MCG TAB PO SCH (06:04)
[2018-10-21] MEDS: Mometasone/Formoterol 120 PUFF INHALER INH SCH ×2 (08:10→18:54)
[2018-10-21] MEDS: predniSONE 20 MG TAB PO SCH (09:30)
--- NOTE | 2018-10-21 09:48 | PDOC.PN ---
- Subjective Encounter Start Date: 10/21/18 Encounter Start Time: 09:47 Subjective: still on O2, some cough, wheezing - Objective Resuscitation Status - Order Detail: 10/17/18 17:14 Resuscitation Status Routine Resuscitation Status: FULL: Full Resuscitation MAR Reviewed: Yes Vital Signs & Weight: Vital Signs (12 hours) Temp Pulse Resp BP Pulse Ox 10/21/18 08:02 79 16 95 10/21/18 04:15 97.2 F L 78 16 124/62 96 10/21/18 01:42 86 18 91 L 10/21/18 00:00 97.9 F 88 18 123/60 99 Weight Weight 168 lb 1.6 oz I&O: 10/20/18 10/21/18 10/22/18 06:59 06:59 06:59 Intake Total 1250 1660 Balance 1250 1660 Result Diagrams: 10/18/18 04:55 10/18/18 04:55 Additional Labs: Accuchecks 10/21/18 10/20/18 10/20/18 05:22 20:21 16:41 POC Glucose 96 182 H 141 H 10/20/18 13:01 POC Glucose 121 H Phys Exam - Physical Examination Neck: no JVD post lowere wheezes, coarse rales Cardiovascular: RRR, no significant murmur Gastrointestinal: soft, non-tender, positive bowel sounds Musculoskeletal: no edema Dx/Plan (1) COPD (chronic obstructive pulmonary disease) with acute bronchitis Code(s): J44.0 - CHRONIC OBSTRUCTIVE PULMON DISEASE W ACUTE LOWER RESP INFCT; J20.9 - ACUTE BRONCHITIS, UNSPECIFIED Status: Acute (2) Acute respiratory failure with hypoxia Code(s): J96.01 - ACUTE RESPIRATORY FAILURE WITH HYPOXIA Status: Acute Comment: Still hypoxic on room air. Will need transition O2 at home. (3) DM2 (diabetes mellitus, type 2) Status: Chronic Qualifiers: Diabetes mellitus fci insulin use: without fci use Diabetes mellitus complication status: without complication Qualified Code(s): E11.9 - Type 2 diabetes mellitus without complications (4) Dyslipidemia Code(s): E78.5 - HYPERLIPIDEMIA, UNSPECIFIED Status: Chronic (5) GERD (gastroesophageal reflux disease) Code(s): K21.9 - GASTRO-ESOPHAGEAL REFLUX DISEASE WITHOUT ESOPHAGITIS Status: Chronic (6) HTN (hypertension) Code(s): I10 - ESSENTIAL (PRIMARY) HYPERTENSION Status: Chronic Qualifiers: Hypertension type: essential hypertension Qualified Code(s): I10 - Essential (primary) hypertension (7) Hypothyroidism Code(s): E03.9 - HYPOTHYROIDISM, UNSPECIFIED Status: Chronic Qualifiers: Hypothyroidism type: unspecified Qualified Code(s): E03.9 - Hypothyroidism , unspecified (8) PNA (pneumonia) Code(s): J18.9 - PNEUMONIA, UNSPECIFIED ORGANISM Status: Acute Qualifiers: Laterality: left Lung location: lower lobe of lung Comment: likely strep pneumonia - Plan cont antibx, LABA, duoneb -: reinstitute iv steroids * .
[2018-10-21] MEDS: Polyethylene Glycol 3350 17 GM Packet PO SCH (10:09)
[2018-10-21] MEDS: Loratadine 10 MG TAB PO SCH (10:09)
[2018-10-21] MEDS: metFORMIN 500 MG TAB PO SCH ×2 (10:09→17:41)
[2018-10-21] MEDS: Citalopram 10 MG TAB PO SCH (10:09)
[2018-10-21] MEDS: Losartan/Hydrochlorothiazide 100 mg/25 mg Tablet PO SCH (10:09)
[2018-10-21] MEDS: Aspirin 81 mg Enteric Coated Tablet PO SCH (10:10)
[2018-10-21] MEDS: methylPREDNISolone Sod Succ 40 MG VIAL IVP SCH ×3 (12:00→22:14)
[2018-10-21] MEDS: Azithromycin 500 MG in Sodium Chloride 0.9% 250 ML 250 ML IVPB SCH (14:46)
[2018-10-21] MEDS: cefTRIAXone\\ROCEPHIN 1 GM in Sodium Chloride 0.9% 100 ML IVPB SCH (14:46)
[2018-10-21] MEDS: Atorvastatin Calcium 20 MG TAB PO SCH (22:07)
[2018-10-22] MEDS ORDERED: Guaifenesin DM 100-10/5 ML UDCUP PO PRN (02:45)
[2018-10-22] MEDS: Benzonatate 100 MG CAP PO SCH ×2 (06:20→15:51)
[2018-10-22] MEDS: Levothyroxine Sodium 25 MCG TAB PO SCH (06:21)
[2018-10-22] MEDS: HumaLOG 300 UNITS/3 ML VIAL SC PRN (06:23)
[2018-10-22] MEDS: methylPREDNISolone Sod Succ 40 MG VIAL IVP SCH ×2 (06:23→12:27)
[2018-10-22] MEDS: Mometasone/Formoterol 120 PUFF INHALER INH SCH ×2 (07:43→19:24)
--- NOTE | 2018-10-22 09:29 | PDOC.PN ---
- Subjective Encounter Start Date: 10/22/18 Encounter Start Time: 09:25 Subjective: cont to be so-so - Objective Resuscitation Status - Order Detail: 10/17/18 17:14 Resuscitation Status Routine Resuscitation Status: FULL: Full Resuscitation MAR Reviewed: Yes Vital Signs & Weight: Vital Signs (12 hours) Temp Pulse Resp BP Pulse Ox 10/22/18 08:00 97.5 F L 92 24 H 124/63 94 L 10/22/18 07:45 88 L 10/22/18 07:41 81 20 87 L 10/22/18 00:07 87 18 92 L 10/22/18 00:00 94 L Weight Weight 168 lb 1.6 oz I&O: 10/21/18 10/22/18 10/23/18 06:59 06:59 06:59 Intake Total 1660 Balance 1660 Result Diagrams: 10/18/18 04:55 10/18/18 04:55 Additional Labs: Accuchecks 10/22/18 10/21/18 10/21/18 05:31 20:12 17:36 POC Glucose 168 H 184 H 173 H 10/21/18 11:09 POC Glucose 96 Phys Exam - Physical Examination Neck: no JVD minimal wheezes, rhonchi Cardiovascular: RRR, no significant murmur Gastrointestinal: soft, positive bowel sounds Musculoskeletal: no edema Dx/Plan (1) COPD (chronic obstructive pulmonary disease) with acute bronchitis Code(s): J44.0 - CHRONIC OBSTRUCTIVE PULMON DISEASE W ACUTE LOWER RESP INFCT; J20.9 - ACUTE BRONCHITIS, UNSPECIFIED Status: Acute (2) Acute respiratory failure with hypoxia Code(s): J96.01 - ACUTE RESPIRATORY FAILURE WITH HYPOXIA Status: Acute Comment: Still hypoxic on room air. Will need transition O2 at home. (3) DM2 (diabetes mellitus, type 2) Status: Chronic Qualifiers: Diabetes mellitus emt intermediate insulin use: without emt intermediate use Diabetes mellitus complication status: without complication Qualified Code(s): E11.9 - Type 2 diabetes mellitus without complications (4) Dyslipidemia Code(s): E78.5 - HYPERLIPIDEMIA, UNSPECIFIED Status: Chronic (5) GERD (gastroesophageal reflux disease) Code(s): K21.9 - GASTRO-ESOPHAGEAL REFLUX DISEASE WITHOUT ESOPHAGITIS Status: Chronic (6) HTN (hypertension) Code(s): I10 - ESSENTIAL (PRIMARY) HYPERTENSION Status: Chronic Qualifiers: Hypertension type: essential hypertension Qualified Code(s): I10 - Essential (primary) hypertension (7) Hypothyroidism Code(s): E03.9 - HYPOTHYROIDISM, UNSPECIFIED Status: Chronic Qualifiers: Hypothyroidism type: unspecified Qualified Code(s): E03.9 - Hypothyroidism , unspecified (8) PNA (pneumonia) Code(s): J18.9 - PNEUMONIA, UNSPECIFIED ORGANISM Status: Acute Qualifiers: Laterality: left Lung location: lower lobe of lung Comment: likely strep pneumonia - Plan cont nebs, steroids, antibx, O2, etc -: cont to require O2 , discuss with pulmonology * .
[2018-10-22] MEDS: metFORMIN 500 MG TAB PO SCH ×2 (10:26→16:59)
[2018-10-22] MEDS: Aspirin 81 mg Enteric Coated Tablet PO SCH (10:27)
[2018-10-22] MEDS: Losartan/Hydrochlorothiazide 100 mg/25 mg Tablet PO SCH (10:27)
[2018-10-22] MEDS: Loratadine 10 MG TAB PO SCH (10:27)
[2018-10-22] MEDS: Citalopram 10 MG TAB PO SCH (10:27)
[2018-10-22] MEDS: Polyethylene Glycol 3350 17 GM Packet PO SCH (10:27)
[2018-10-22] MEDS: Azithromycin 500 MG in Sodium Chloride 0.9% 250 ML 250 ML IVPB SCH (13:40)
[2018-10-22] MEDS: cefTRIAXone\\ROCEPHIN 1 GM in Sodium Chloride 0.9% 100 ML IVPB SCH (13:40)
[2018-10-22] MEDS ORDERED: Calcium Carbonate 500 MG ChewTAB PO PRN (16:52)
--- NOTE | 2018-10-22 19:15 | CON ---
DATE OF CONSULTATION: 10/22/2018 REASON FOR CONSULT: Respiratory issues. HISTORY OF PRESENT ILLNESS: The patient is a 73-year-old white female with past medical history significant for possible asthma. She also has known sleep apnea. She was having frequent exacerbations of respiratory illnesses. Previously when her lungs were healthy, we proved categorically that she did not have COPD. That being said, she has frequent exacerbations of something. She has been treated like asthma, but this has not been successful in keeping her out of the hospital. She presented once again to the emergency department because of increasing cough, congestion, sputum production, and shortness of breath. She has been treated like a COPD exacerbation, and made a very slow recovery. Otherwise, there has been no interval change to her condition. She is not currently having any fevers or chills, but continues to bring up yellow phlegm. She is not having any chest pain, nausea, vomiting, or diarrhea. She has no new hot red swollen joints or rashes. PAST MEDICAL HISTORY: 1. Restrictive lung disease, in keeping with body habitus. 2. Obstructive sleep apnea, not using CPAP machine. 3. Hypertension. 4. Dyslipidemia. 5. Type 2 diabetes mellitus. 6. Anemia. 7. Asthma, possible. 8. Anxiety disorder. 9. Gastroesophageal reflux disease. 10. Hiatal hernia. 11. Vitamin D deficiency. 12. Hypothyroidism. PAST SURGICAL HISTORY: 1. Right rotator cuff surgery. 2. Right leg surgery. 3. Appendectomy. 4. Cholecystectomy. SOCIAL HISTORY: Negative for alcohol, tobacco, or illicit drug use. She has no exposure to chemicals, dust, asbestos, or tuberculosis. FAMILY HISTORY: Noncontributory. ALLERGIES: NO KNOWN DRUG ALLERGIES. MEDICATIONS: List of her inpatient medications was reviewed. No specific updates were made. REVIEW OF SYSTEMS: General, head, ears, eyes, nose, throat, cardiovascular, respiratory, GI, , musculoskeletal, neurologic, and skin is negative except as mentioned in the HPI. PHYSICAL EXAMINATION: VITAL SIGNS: Afebrile, pulse 98, blood pressure 101/58, respirations 20, and saturation 94% on room air. GENERAL: The patient is awake and alert, in no apparent distress. LUNGS: Rhonchi are present. Dependent crackles are noted. There is no prolonged expiratory phase or wheezing appreciated. HEART: Normal rate and regular. ABDOMEN: Soft, nontender, nondistended. Bowel sounds are positive. MUSCULOSKELETAL: No cyanosis or clubbing. No pitting in the bilateral lower extremities. NEUROLOGIC: Grossly nonfocal. LABORATORY DATA: WBC 6.0, hemoglobin 13.2, platelets 303,000. Eosinophil count was 17.4% on presentation. Absolute numbers were quite elevated. Historically, she had elevated IgE level. Basic metabolic profile is essentially unremarkable. Liver function studies, troponin x3, and BNP were negative. IMAGING: Chest x-ray demonstrates possible left lower lobe infiltrate. CT of the chest previously demonstrated significant mucus plugging throughout bilateral lung cloud, which were worse in the bibasilar regions. I reviewed that CT scan again, and there is actually significant bronchiectasis scattered throughout bibasilar regions, once again more severe in the dependent regions. ASSESSMENT: 1. Bronchiectasis with acute exacerbation. 2. Community acquired pneumonia. 3. Hiatal hernia. 4. Gastroesophageal reflux disease. 5. Obstructive sleep apnea, moderate (likely much more severe given that she never got anything that approach deep sleep). 6. Atelectasis of the left lower lobe. DISCUSSION AND PLAN: The patient had an elevated eosinophil level and an elevated IgE level historically. She has something that looks quite a bit like asthma that frequently response to steroids and antibiotics. My concern is that she may be developing acute bronchopulmonary aspergillosis. As such, we will repeat an IgE titer, and send for Aspergillus titers. If these are abnormal, a protracted course of steroids and antifungal medications will be indicated. She will need to remain in-house until we can get the results of the studies. Outside of this, very strict acid reflux precautions need to be adhered to. I will pursue a bronchiectasis evaluation in the outpatient setting should these laboratories not be helpful and she not respond to treatment for her reflux. I am alarmed that she is not on a CPAP. I do think this would go a long way to prevent her from refluxing and subsequently aspirating things in her lungs while she is sleeping. She does have a classic history for this type of presentation. Steroids will be converted over to p.o. She has completed a full course of antibiotics, so these can be interrupted. Pulmonary will continue to follow. 70 minutes have been devoted to this patient in various activities. I personally reviewed all imaging studies and laboratory data noted within this document. For fifty percent of this time, I was interacting with the patient at the bedside or coordinating care with the care team. For the remainder of the time I was immediately available to the patient in the hospital unit. Job ID: [id number] MTDD
[2018-10-22] MEDS: guaiFENesin ER 600 MG TAB PO SCH (20:22)
[2018-10-22] MEDS: predniSONE 20 MG TAB PO SCH (20:22)
[2018-10-22] MEDS: Atorvastatin Calcium 20 MG TAB PO SCH (20:22)
[2018-10-23] MEDS: Levothyroxine Sodium 25 MCG TAB PO SCH (06:02)
[2018-10-23] MEDS: HumaLOG 300 UNITS/3 ML VIAL SC PRN ×2 (06:02→13:28)
[2018-10-23] MEDS ORDERED: predniSONE 20 MG TAB PO SCH (08:00)
[2018-10-23] MEDS: Mometasone/Formoterol 120 PUFF INHALER INH SCH ×2 (09:09→19:43)
[2018-10-23] MEDS: guaiFENesin ER 600 MG TAB PO SCH ×2 (09:48→20:42)
[2018-10-23] MEDS: metFORMIN 500 MG TAB PO SCH ×2 (09:48→17:57)
[2018-10-23] MEDS: Aspirin 81 mg Enteric Coated Tablet PO SCH (09:48)
[2018-10-23] MEDS: Loratadine 10 MG TAB PO SCH (09:49)
[2018-10-23] MEDS: predniSONE 20 MG TAB PO SCH (09:49)
[2018-10-23] MEDS: Losartan/Hydrochlorothiazide 100 mg/25 mg Tablet PO SCH (09:52)
[2018-10-23] MEDS: Polyethylene Glycol 3350 17 GM Packet PO SCH (09:52)
[2018-10-23] MEDS: Citalopram 10 MG TAB PO SCH (10:35)
[2018-10-23 10:50] LABS: #Lymphocytes 0.8 thou/uL (1.20-3.40); #Monocytes 0.4 thou/uL (0.11-0.59); #Neutrophils 10.3 thou/uL (1.40-6.50); %Eosinophils 0.2 % (0.0-10.0); %Lymphocytes 7.2 % (21.0-51.0); %Monocytes 3.1 % (0.0-10.0); %Neutrophils 89.4 % (42.0-75.0); Hemoglobin 12.9 g/dL (12.0-16.0); Mean Corpuscular HGB CONC 30.7 g/dL (32.0-36.0); Mean Corpuscular Hemoglobin 25.4 pg (27.0-31.0); Mean Corpuscular Volume 82.8 fL (78.0-98.0); Mean Platelet Volume 7.9 fL (7.4-10.4); Platelet Count 373 thou/uL (130-400); RBC Distribution Width 14.9 % (11.5-14.5); Red Blood Cell (RBC) Count 5.08 mill/uL (4.20-5.40); White Blood Cell (WBC) Count 11.5 thou/uL (4.8-10.8)
[2018-10-23 11:10] LABS: Anion Gap 16 mmol/L (10-20); BUN (Urea Nitrogen) 28 mg/dL (9.8-20.1); Calc. Creatinine Clearance 68 mL/min (70-130); Calcium 9.4 mg/dL (7.8-10.44); Carbon Dioxide 20 mmol/L (23-31); Chloride 105 mmol/L (98-107); Estimated GFR-MDRD 64; Glucose 206 mg/dL (83-110); Potassium 4.2 mmol/L (3.5-5.1); Sodium 137 mmol/L (136-145)
--- NOTE | 2018-10-23 12:11 | PRG ---
DATE OF SERVICE: 10/23/2018 SERVICE: Pulmonary Medicine. INTERVAL HISTORY: The patient is doing fine from respiratory standpoint. She is still coughing and bringing up significant amounts of sputum. Denies any current chest pain, fevers, or chills. Otherwise, there has been no interval change to her condition. PHYSICAL EXAMINATION: VITAL SIGNS: Afebrile, pulse 82, blood pressure 145/81, respirations 24, saturation 93% on 2 L nasal cannula. GENERAL: The patient is awake and alert, in no apparent distress. LUNGS: Rhonchi are present. There is not much of prolonged expiratory phase. I do not appreciate any wheezing. HEART: Normal rate. Regular. ABDOMEN: Soft, nontender, nondistended. Bowel sounds are positive. MUSCULOSKELETAL: No cyanosis or clubbing. There is no pitting in the bilateral lower extremities. NEUROLOGIC: Grossly nonfocal. LABORATORY DATA: WBC 11.5, hemoglobin 12.9, platelets 373,000. Basic metabolic profile is otherwise unremarkable. Her bicarb is 20. Creatinine 0.87. ASSESSMENT: 1. Bronchiectasis with acute exacerbation. 2. Community acquired pneumonia. 3. Hiatal hernia with severe gastroesophageal reflux disease. 4. Obstructive sleep apnea, moderate (not able to get on CPAP therapy). 5. Atelectasis of the left lower lobe. DISCUSSION AND PLAN: We are working up possible ABPA. If she is feeling good, she can be discharged in the morning. Please give her 2 seeks of prednisone 40 mg PO daily for the next 2 weeks. Depending on the labs, I will determine if we need to continue them, or quickly taper them. If the ABPA investigation does not dunaway out, we will do formal bronchiectasis studies. My suspicion is that she has horrendous acid reflux disease, which is exacerbated by obstructive sleep apnea, which she does not have corrected. That being said, we have not excluded the possibility of intermittent obstructive lung disease like asthma. She categorically does not have COPD, however, as she has pulmonary function studies without any hint of obstructive lung disease recently. Since she will be going on steroids, I do not think that we need to introduce a long-acting inhaler at this moment. Job ID: [id number] [facility]
--- NOTE | 2018-10-23 12:26 | PDOC.PN ---
- Subjective Encounter Start Date: 10/23/18 Encounter Start Time: 10:00 -: old records requested/rev Patient seen and examined. No new complaints. No overnight events - Objective Resuscitation Status - Order Detail: 10/17/18 17:14 Resuscitation Status Routine Resuscitation Status: FULL: Full Resuscitation MAR Reviewed: Yes Vital Signs & Weight: Vital Signs (12 hours) Temp Pulse Resp BP Pulse Ox 10/23/18 09:09 76 16 10/23/18 08:56 76 16 10/23/18 07:41 98.2 F 82 24 H 145/81 H 93 L 10/23/18 03:50 94 L Weight Weight 168 lb 1.6 oz I&O: 10/22/18 10/23/18 10/24/18 06:59 06:59 06:59 Intake Total 1460 Balance 1460 Result Diagrams: 10/23/18 10:26 10/23/18 10:26 Additional Labs: Accuchecks 10/23/18 10/22/18 10/22/18 05:29 20:32 17:02 POC Glucose 163 H 163 H 203 H 10/22/18 12:44 POC Glucose 118 H Phys Exam - Physical Examination Constitutional: NAD HEENT: PERRLA, moist MMs, sclera anicteric Neck: no JVD, supple scattered rales+ Cardiovascular: RRR, no significant murmur, no rub Gastrointestinal: soft, non-tender, no distention, positive bowel sounds Musculoskeletal: no edema, pulses present Neurological: non-focal, normal sensation Lymphatic: no nodes Psychiatric: normal affect Skin: no rash, normal turgor Dx/Plan (1) Acute respiratory failure with hypoxia Code(s): J96.01 - ACUTE RESPIRATORY FAILURE WITH HYPOXIA Status: Acute Comment: Still hypoxic on room air. Will need transition O2 at home. (2) COPD (chronic obstructive pulmonary disease) with acute bronchitis Code(s): J44.0 - CHRONIC OBSTRUCTIVE PULMON DISEASE W ACUTE LOWER RESP INFCT; J20.9 - ACUTE BRONCHITIS, UNSPECIFIED Status: Acute (3) Community acquired bacterial pneumonia Code(s): J15.9 - UNSPECIFIED BACTERIAL PNEUMONIA Status: Acute Comment: Transitioned to oral Levaquin, can d/c on home O2 (4) Anxiety and depression Code(s): F41.9 - ANXIETY DISORDER, UNSPECIFIED; F32.9 - MAJOR DEPRESSIVE DISORDER, SINGLE EPISODE, UNSPECIFIED Status: Chronic (5) DM2 (diabetes mellitus, type 2) Status: Chronic Qualifiers: Diabetes mellitus snf insulin use: without stucco laborer use Diabetes mellitus complication status: without complication Qualified Code(s): E11.9 - Type 2 diabetes mellitus without complications (6) Dyslipidemia Code(s): E78.5 - HYPERLIPIDEMIA, UNSPECIFIED Status: Chronic (7) GERD (gastroesophageal reflux disease) Code(s): K21.9 - GASTRO-ESOPHAGEAL REFLUX DISEASE WITHOUT ESOPHAGITIS Status: Chronic (8) HTN (hypertension) Code(s): I10 - ESSENTIAL (PRIMARY) HYPERTENSION Status: Chronic Qualifiers: Hypertension type: essential hypertension Qualified Code(s): I10 - Essential (primary) hypertension (9) Hypothyroidism Code(s): E03.9 - HYPOTHYROIDISM, UNSPECIFIED Status: Chronic Qualifiers: Hypothyroidism type: unspecified Qualified Code(s): E03.9 - Hypothyroidism , unspecified (10) Microcytic anemia Code(s): D50.9 - IRON DEFICIENCY ANEMIA, UNSPECIFIED Status: Chronic (11) Obesity (BMI 30-39.9) Code(s): E66.9 - OBESITY, UNSPECIFIED Status: Chronic - Plan cont current plan of care, continue antibiotics, respiratory therapy * pt's subjectively not ready for discharge * pulmonary on case * medication reviewed as below * symptomatic treatment * overall stable and improving. Review of Systems - Review of Systems ENT: negative: Ear Pain, Ear Discharge, Nose Pain, Nose Discharge, Nose Congestion, Mouth Pain, Mouth Swelling, Throat Pain, Throat Swelling, Other Respiratory: Cough, SOB with Excertion. negative: Dry, Shortness of Breath, Hemoptysis, Pleuritic Pain, Sputum, Wheezing Cardiovascular: negative: chest pain, palpitations, orthopnea, paroxysmal nocturnal dyspnea, edema, light headedness, other Gastrointestinal: negative: Nausea, Vomiting, Abdominal Pain, Diarrhea, Constipation, Melena, Hematochezia, Other Genitourinary: negative: Dysuria, Frequency, Incontinence, Hematuria, Retention , Other Musculoskeletal: negative: Neck Pain, Shoulder Pain, Arm Pain, Back Pain, Hand Pain, Leg Pain, Foot Pain, Other - Medications/Allergies Allergies/Adverse Reactions: Allergies Allergy/AdvReac Type Severity Reaction Status Date / Time No Known Allergies Allergy Verified 10/18/18 00:57 Medications: Current Medications Acetaminophen (Tylenol) 650 mg PO Q4H PRN PRN Reason: Headache/Fever/Mild Pain (1-3) Last Admin: 10/21/18 06:04 Dose: 650 mg Hydrocodone Bitart/Acetaminophen (Randolph 7.5/325) 1 tab PO Q4H PRN PRN Reason: PAIN >4 Albuterol/Ipratropium (Duoneb) 3 ml NEB [id number] [facility] Last Admin: 10/23/18 08:56 Dose: 3 ml Aspirin (Ecotrin) 81 mg PO DAILY [facility] Last Admin: 10/23/18 09:48 Dose: 81 mg Atorvastatin Calcium (Lipitor) 20 mg PO HS [facility] Last Admin: 10/22/18 20:22 Dose: 20 mg Calcium Carbonate (Tums) 1,000 mg PO ONE PRN PRN Reason: .HEARTBURN Stop: 10/23/18 16:53 Last Admin: 10/22/18 19:27 Dose: 1,000 mg Citalopram Hydrobromide (Celexa) 10 mg PO DAILY [facility] Last Admin: 10/22/18 10:27 Dose: 10 mg Dextrose/Water (Dextrose 50%) 25 gm SLOW IVP PRN PRN PRN Reason: Hypoglycemia Glucagon (Glucagon) 1 mg IM PRN PRN PRN Reason: Hypoglycemia Guaifenesin (Mucinex) 1,200 mg PO Q12HR [facility] Last Admin: 10/23/18 09:48 Dose: 1,200 mg HCTZ/Losartan Potassium (Hyzaar 100/25) 1 tab PO DAILY [facility] Last Admin: 10/23/18 09:52 Dose: 1 tab Dextrose/Water (D5w) 1,000 mls @ 0 mls/hr IV .Q0M PRN PRN Reason: Hypoglycemia Ceftriaxone Sodium 1 gm/ (Sodium Chloride) 100 mls @ 200 mls/hr IVPB 1500 [facility] Last Admin: 10/22/18 13:40 Dose: 100 mls Azithromycin 500 mg/ Sodium (Chloride) 250 mls @ 250 mls/hr IVPB 1400 [facility] Last Admin: 10/22/18 13:40 Dose: 250 mls Insulin Human Lispro (Humalog) 0 units SC .MILD SLIDING SCALE PRN PRN Reason: Mild Correctional Scale Last Admin: 10/23/18 06:02 Dose: 2 unit Levothyroxine Sodium (Synthroid) 25 mcg PO 0600 [facility] Last Admin: 10/23/18 06:02 Dose: 25 mcg Loratadine (Claritin) 10 mg PO DAILY [facility] Last Admin: 10/23/18 09:49 Dose: 10 mg Magnesium Hydroxide (Milk Of Magnesium) 30 ml PO DAILYPRN PRN PRN Reason: Constipation Last Admin: 10/20/18 00:08 Dose: 30 ml Metformin HCl (Glucophage) 500 mg PO BID-WM [facility] Last Admin: 10/23/18 09:48 Dose: 500 mg Mometasone Furoate/Formoterol Fumar (Dulera 100 Mcg/5 Mcg Inhaler) 2 puff INH BID-RT [facility] Last Admin: 10/23/18 09:09 Dose: 2 puff Nitroglycerin (Nitrostat) 0.4 mg SL Q5MIN PRN PRN Reason: Chest Pain Pantoprazole Sodium (Protonix) 40 mg PO 0700 [facility] Last Admin: 10/23/18 06:02 Dose: 40 mg Polyethylene Glycol (Miralax) 17 gm PO DAILY [facility] Last Admin: 10/23/18 09:52 Dose: 17 gm Sodium Chloride (Flush - Normal Saline) 10 ml IVF Q12HR [facility] Last Admin: 10/23/18 09:48 Dose: 10 ml Sodium Chloride (Flush - Normal Saline) 10 ml IVF PRN PRN PRN Reason: Saline Flush Last Admin: 10/22/18 13:40 Dose: 10 ml
[2018-10-23] MEDS: Azithromycin 500 MG in Sodium Chloride 0.9% 250 ML 250 ML IVPB SCH (13:40)
[2018-10-23] MEDS: cefTRIAXone\\ROCEPHIN 1 GM in Sodium Chloride 0.9% 100 ML IVPB SCH (13:40)
[2018-10-23] MEDS: Atorvastatin Calcium 20 MG TAB PO SCH (20:42)
[2018-10-24] MEDS: Levothyroxine Sodium 25 MCG TAB PO SCH (06:01)
[2018-10-24] MEDS: Mometasone/Formoterol 120 PUFF INHALER INH SCH ×2 (07:43→20:06)
[2018-10-24] MEDS: Polyethylene Glycol 3350 17 GM Packet PO SCH (08:08)
[2018-10-24] MEDS: guaiFENesin ER 600 MG TAB PO SCH ×2 (08:08→19:59)
[2018-10-24] MEDS: Loratadine 10 MG TAB PO SCH (08:08)
[2018-10-24] MEDS: Citalopram 10 MG TAB PO SCH (08:08)
[2018-10-24] MEDS: Aspirin 81 mg Enteric Coated Tablet PO SCH (08:08)
[2018-10-24] MEDS: metFORMIN 500 MG TAB PO SCH ×2 (08:08→16:46)
[2018-10-24] MEDS: Losartan/Hydrochlorothiazide 100 mg/25 mg Tablet PO SCH (08:08)
--- NOTE | 2018-10-24 09:46 | PDOC.PN ---
- Subjective Encounter Start Date: 10/24/18 Encounter Start Time: 07:00 pt feels dyspnea and cough with little effort, concerned about going home, has no oxygen, she wanted to stay in hospital - Objective Resuscitation Status - Order Detail: 10/17/18 17:14 Resuscitation Status Routine Resuscitation Status: FULL: Full Resuscitation MAR Reviewed: Yes Vital Signs & Weight: Vital Signs (12 hours) Temp Pulse Resp BP Pulse Ox 10/24/18 07:57 97.3 F L 82 24 H 134/66 95 10/24/18 07:39 82 16 92 L 10/24/18 03:51 92 L 10/24/18 01:00 75 14 93 L 10/23/18 23:42 97 10/23/18 22:56 88 Weight Weight 168 lb 1.6 oz I&O: 10/23/18 10/24/18 10/25/18 06:59 06:59 07:59 Intake Total 1460 1460 Balance 1460 1460 Result Diagrams: 10/23/18 10:26 10/23/18 10:26 Additional Labs: Accuchecks 10/24/18 10/23/18 10/23/18 05:26 19:40 16:13 POC Glucose 90 141 H 70 10/23/18 12:33 POC Glucose 205 H Phys Exam - Physical Examination Constitutional: NAD HEENT: PERRLA, moist MMs, sclera anicteric Neck: no JVD, supple Respiratory: wheezing present scattered rales Cardiovascular: RRR, no significant murmur, no rub Gastrointestinal: soft, non-tender, no distention, positive bowel sounds Musculoskeletal: no edema, pulses present Neurological: non-focal, normal sensation, moves all 4 limbs Lymphatic: no nodes Psychiatric: normal affect, A&O x 3 Skin: no rash, normal turgor Dx/Plan (1) Acute respiratory failure with hypoxia Code(s): J96.01 - ACUTE RESPIRATORY FAILURE WITH HYPOXIA Status: Acute Comment: Still hypoxic on room air. Will need transition O2 at home. (2) COPD (chronic obstructive pulmonary disease) with acute bronchitis Code(s): J44.0 - CHRONIC OBSTRUCTIVE PULMON DISEASE W ACUTE LOWER RESP INFCT; J20.9 - ACUTE BRONCHITIS, UNSPECIFIED Status: Acute (3) Community acquired bacterial pneumonia Code(s): J15.9 - UNSPECIFIED BACTERIAL PNEUMONIA Status: Acute Comment: (4) Anxiety and depression Code(s): F41.9 - ANXIETY DISORDER, UNSPECIFIED; F32.9 - MAJOR DEPRESSIVE DISORDER, SINGLE EPISODE, UNSPECIFIED Status: Chronic (5) DM2 (diabetes mellitus, type 2) Status: Chronic Qualifiers: Diabetes mellitus dedicated intermodal truck driver insulin use: without dedicated intermodal truck driver use Diabetes mellitus complication status: without complication Qualified Code(s): E11.9 - Type 2 diabetes mellitus without complications (6) Dyslipidemia Code(s): E78.5 - HYPERLIPIDEMIA, UNSPECIFIED Status: Chronic (7) GERD (gastroesophageal reflux disease) Code(s): K21.9 - GASTRO-ESOPHAGEAL REFLUX DISEASE WITHOUT ESOPHAGITIS Status: Chronic (8) HTN (hypertension) Code(s): I10 - ESSENTIAL (PRIMARY) HYPERTENSION Status: Chronic Qualifiers: Hypertension type: essential hypertension Qualified Code(s): I10 - Essential (primary) hypertension (9) Hypothyroidism Code(s): E03.9 - HYPOTHYROIDISM, UNSPECIFIED Status: Chronic Qualifiers: Hypothyroidism type: unspecified Qualified Code(s): E03.9 - Hypothyroidism , unspecified (10) Microcytic anemia Code(s): D50.9 - IRON DEFICIENCY ANEMIA, UNSPECIFIED Status: Chronic (11) Obesity (BMI 30-39.9) Code(s): E66.9 - OBESITY, UNSPECIFIED Status: Chronic - Plan cont current plan of care, social service worker * currently on steroid * medication reviewed as below * symptomatic treatment. * continue respiratory therapy * will arrange home oxygen on discharge if qualify Review of Systems - Review of Systems ENT: negative: Ear Pain, Ear Discharge, Nose Pain, Nose Discharge, Nose Congestion, Mouth Pain, Mouth Swelling, Throat Pain, Throat Swelling, Other Respiratory: Cough, Shortness of Breath, SOB with Excertion, Wheezing. negative : Dry, Hemoptysis, Pleuritic Pain, Sputum Cardiovascular: negative: chest pain, palpitations, orthopnea, paroxysmal nocturnal dyspnea, edema, light headedness, other Gastrointestinal: negative: Nausea, Vomiting, Abdominal Pain, Diarrhea, Constipation, Melena, Hematochezia, Other Genitourinary: negative: Dysuria, Frequency, Incontinence, Hematuria, Retention , Other Musculoskeletal: negative: Neck Pain, Shoulder Pain, Arm Pain, Back Pain, Hand Pain, Leg Pain, Foot Pain, Other Skin: negative: Rash, Lesions, David, Bruising, Other - Medications/Allergies Allergies/Adverse Reactions: Allergies Allergy/AdvReac Type Severity Reaction Status Date / Time No Known Allergies Allergy Verified 10/18/18 00:57 Medications: Current Medications Acetaminophen (Tylenol) 650 mg PO Q4H PRN PRN Reason: Headache/Fever/Mild Pain (1-3) Last Admin: 10/21/18 06:04 Dose: 650 mg Hydrocodone Bitart/Acetaminophen (Isabella 7.5/325) 1 tab PO Q4H PRN PRN Reason: PAIN >4 Albuterol/Ipratropium (Duoneb) 3 ml NEB [id number] [facility] Last Admin: 10/24/18 07:39 Dose: 3 ml Aspirin (Ecotrin) 81 mg PO DAILY [facility] Last Admin: 10/24/18 08:08 Dose: 81 mg Atorvastatin Calcium (Lipitor) 20 mg PO HS [facility] Last Admin: 10/23/18 20:42 Dose: 20 mg Citalopram Hydrobromide (Celexa) 10 mg PO DAILY [facility] Last Admin: 10/24/18 08:08 Dose: 10 mg Dextrose/Water (Dextrose 50%) 25 gm SLOW IVP PRN PRN PRN Reason: Hypoglycemia Glucagon (Glucagon) 1 mg IM PRN PRN PRN Reason: Hypoglycemia Guaifenesin (Mucinex) 1,200 mg PO Q12HR [facility] Last Admin: 10/24/18 08:08 Dose: 1,200 mg HCTZ/Losartan Potassium (Hyzaar 100/25) 1 tab PO DAILY [facility] Last Admin: 10/24/18 08:08 Dose: 1 tab Dextrose/Water (D5w) 1,000 mls @ 0 mls/hr IV .Q0M PRN PRN Reason: Hypoglycemia Ceftriaxone Sodium 1 gm/ (Sodium Chloride) 100 mls @ 200 mls/hr IVPB 1500 [facility] Last Admin: 10/23/18 13:40 Dose: 100 mls Azithromycin 500 mg/ Sodium (Chloride) 250 mls @ 250 mls/hr IVPB 1400 [facility] Last Admin: 10/23/18 13:40 Dose: 250 mls Insulin Human Lispro (Humalog) 0 units SC .MILD SLIDING SCALE PRN PRN Reason: Mild Correctional Scale Last Admin: 10/23/18 13:28 Dose: 3 unit Levothyroxine Sodium (Synthroid) 25 mcg PO 0600 [facility] Last Admin: 10/24/18 06:01 Dose: 25 mcg Loratadine (Claritin) 10 mg PO DAILY [facility] Last Admin: 10/24/18 08:08 Dose: 10 mg Magnesium Hydroxide (Milk Of Magnesium) 30 ml PO DAILYPRN PRN PRN Reason: Constipation Last Admin: 10/20/18 00:08 Dose: 30 ml Metformin HCl (Glucophage) 500 mg PO BID-WM [facility] Last Admin: 10/24/18 08:08 Dose: 500 mg Mometasone Furoate/Formoterol Fumar (Dulera 100 Mcg/5 Mcg Inhaler) 2 puff INH BID-RT [facility] Last Admin: 10/24/18 07:43 Dose: 2 puff Nitroglycerin (Nitrostat) 0.4 mg SL Q5MIN PRN PRN Reason: Chest Pain Pantoprazole Sodium (Protonix) 40 mg PO 0700 [facility] Last Admin: 10/24/18 06:01 Dose: 40 mg Polyethylene Glycol (Miralax) 17 gm PO DAILY [facility] Last Admin: 10/24/18 08:08 Dose: 17 gm Sodium Chloride (Flush - Normal Saline) 10 ml IVF Q12HR [facility] Last Admin: 10/24/18 08:08 Dose: 10 ml Sodium Chloride (Flush - Normal Saline) 10 ml IVF PRN PRN PRN Reason: Saline Flush Last Admin: 10/22/18 13:40 Dose: 10 ml
[2018-10-24] MEDS ORDERED: predniSONE 20 MG TAB PO SCH (10:00)
--- NOTE | 2018-10-24 12:38 | PRG ---
DATE OF SERVICE: 10/24/2018 SUBJECTIVE: The patient is still having significant wheezing episodes. Sputum is relatively clear. OBJECTIVE: VITAL SIGNS: Saturations are 98% on 2 L, respirations 24, temperature 97, blood pressure 130/66. CHEST: Diffuse wheezing, rhonchi. CARDIAC: Normal S1, S2. No gallops. ABDOMEN: No masses. IMPRESSION: Asthmatic bronchitis, bronchiectasis. PLAN: Continue neb treatments, steroids. Supportive care. Switch over to oral antibiotics in next 24 to 48 hours. Job ID: [id number]
[2018-10-24] MEDS: Azithromycin 500 MG in Sodium Chloride 0.9% 250 ML 250 ML IVPB SCH (13:54)
[2018-10-24 15:13] LABS: Allergen,Aspergillus fumig.IgE Less than 0.10 kU/L (Less than 0.10)
[2018-10-24] MEDS: cefTRIAXone\\ROCEPHIN 1 GM in Sodium Chloride 0.9% 100 ML IVPB SCH (15:16)
[2018-10-24] MEDS: Atorvastatin Calcium 20 MG TAB PO SCH (20:00)
--- NOTE | 2018-10-24 22:15 | EKG ---
Test Reason : Blood Pressure : / mmHG Vent. Rate : 094 BPM Atrial Rate : 094 BPM P-R Int : 128 ms QRS Dur : 070 ms QT Int : 354 ms P-R-T Axes : 087 -41 -06 degrees QTc Int : 442 ms Sinus rhythm with Premature atrial complexes Left axis deviation Pulmonary disease pattern Inferior infarct , age undetermined Abnormal ECG Confirmed by JV HARPER, COY ([id number]), online editor YUKI KUMAR ([id number]) on 10/24/2018 10:15:09 PM Referred By: Confirmed By:COY CARIAS MD
[2018-10-25] MEDS: Levothyroxine Sodium 25 MCG TAB PO SCH (05:17)
[2018-10-25] MEDS: Mometasone/Formoterol 120 PUFF INHALER INH SCH ×2 (08:01→19:58)
[2018-10-25] MEDS: Polyethylene Glycol 3350 17 GM Packet PO SCH (08:57)
[2018-10-25] MEDS: Citalopram 10 MG TAB PO SCH (09:00)
[2018-10-25] MEDS: predniSONE 20 MG TAB PO SCH (09:00)
[2018-10-25] MEDS: metFORMIN 500 MG TAB PO SCH ×2 (09:00→17:57)
[2018-10-25] MEDS: guaiFENesin ER 600 MG TAB PO SCH ×2 (09:00→21:14)
[2018-10-25] MEDS: Losartan/Hydrochlorothiazide 100 mg/25 mg Tablet PO SCH (09:01)
[2018-10-25] MEDS: Aspirin 81 mg Enteric Coated Tablet PO SCH (09:01)
[2018-10-25] MEDS: Loratadine 10 MG TAB PO SCH (09:01)
--- NOTE | 2018-10-25 09:31 | PDOC.PN ---
- Subjective Encounter Start Date: 10/25/18 Encounter Start Time: 07:00 pt feels weak, has cough, no new problems - Objective Resuscitation Status - Order Detail: 10/17/18 17:14 Resuscitation Status Routine Resuscitation Status: FULL: Full Resuscitation MAR Reviewed: Yes Vital Signs & Weight: Vital Signs (12 hours) Temp Pulse Resp BP Pulse Ox 10/25/18 08:00 78 16 97 10/25/18 07:48 98.3 F 75 18 128/78 97 10/25/18 04:00 94 L 10/25/18 01:31 92 14 94 L 10/24/18 23:35 98 Weight Weight 168 lb 1.6 oz I&O: 10/24/18 10/25/18 10/26/18 05:59 06:59 06:59 Intake Total Balance Result Diagrams: 10/23/18 10:26 10/23/18 10:26 Additional Labs: Accuchecks 10/25/18 10/24/18 10/24/18 05:39 19:43 16:48 POC Glucose 94 188 H 160 H 10/24/18 11:37 POC Glucose 87 Phys Exam - Physical Examination Constitutional: NAD HEENT: PERRLA, moist MMs, sclera anicteric Neck: no JVD, supple Respiratory: no wheezing, no rhonchi reduced air entry Cardiovascular: RRR, no significant murmur, no rub Gastrointestinal: soft, non-tender, no distention, positive bowel sounds Musculoskeletal: no edema, pulses present Neurological: non-focal, normal sensation, moves all 4 limbs Lymphatic: no nodes Psychiatric: normal affect, A&O x 3 Skin: no rash, normal turgor Dx/Plan (1) Acute respiratory failure with hypoxia Code(s): J96.01 - ACUTE RESPIRATORY FAILURE WITH HYPOXIA Status: Acute Comment: Still hypoxic on room air. Will need transition O2 at home. (2) COPD (chronic obstructive pulmonary disease) with acute bronchitis Code(s): J44.0 - CHRONIC OBSTRUCTIVE PULMON DISEASE W ACUTE LOWER RESP INFCT; J20.9 - ACUTE BRONCHITIS, UNSPECIFIED Status: Acute (3) Community acquired bacterial pneumonia Code(s): J15.9 - UNSPECIFIED BACTERIAL PNEUMONIA Status: Acute Comment: (4) Anxiety and depression Code(s): F41.9 - ANXIETY DISORDER, UNSPECIFIED; F32.9 - MAJOR DEPRESSIVE DISORDER, SINGLE EPISODE, UNSPECIFIED Status: Chronic (5) DM2 (diabetes mellitus, type 2) Status: Chronic Qualifiers: Diabetes mellitus termite technician insulin use: without termite technician use Diabetes mellitus complication status: without complication Qualified Code(s): E11.9 - Type 2 diabetes mellitus without complications (6) Dyslipidemia Code(s): E78.5 - HYPERLIPIDEMIA, UNSPECIFIED Status: Chronic (7) GERD (gastroesophageal reflux disease) Code(s): K21.9 - GASTRO-ESOPHAGEAL REFLUX DISEASE WITHOUT ESOPHAGITIS Status: Chronic (8) HTN (hypertension) Code(s): I10 - ESSENTIAL (PRIMARY) HYPERTENSION Status: Chronic Qualifiers: Hypertension type: essential hypertension Qualified Code(s): I10 - Essential (primary) hypertension (9) Hypothyroidism Code(s): E03.9 - HYPOTHYROIDISM, UNSPECIFIED Status: Chronic Qualifiers: Hypothyroidism type: unspecified Qualified Code(s): E03.9 - Hypothyroidism , unspecified (10) Microcytic anemia Code(s): D50.9 - IRON DEFICIENCY ANEMIA, UNSPECIFIED Status: Chronic (11) Obesity (BMI 30-39.9) Code(s): E66.9 - OBESITY, UNSPECIFIED Status: Chronic - Plan cont current plan of care, respiratory therapy * today will monitor her oxygen saturation with walking to see if she needs home oxygen * otherwise continue current treatment * pt subjectively not confident to go home yet * medication reviewed as below * symptomatic treatment. Review of Systems - Review of Systems Eyes: negative: Pain, Vision Change, Conjunctivae Inflammation, Eyelid Inflammation, Redness, Other ENT: negative: Ear Pain, Ear Discharge, Nose Pain, Nose Discharge, Nose Congestion, Mouth Pain, Mouth Swelling, Throat Pain, Throat Swelling, Other Respiratory: Cough, Shortness of Breath, SOB with Excertion. negative: Dry, Hemoptysis, Pleuritic Pain, Sputum, Wheezing Cardiovascular: negative: chest pain, palpitations, orthopnea, paroxysmal nocturnal dyspnea, edema, light headedness, other Gastrointestinal: negative: Nausea, Vomiting, Abdominal Pain, Diarrhea, Constipation, Melena, Hematochezia, Other Genitourinary: negative: Dysuria, Frequency, Incontinence, Hematuria, Retention , Other Musculoskeletal: negative: Neck Pain, Shoulder Pain, Arm Pain, Back Pain, Hand Pain, Leg Pain, Foot Pain, Other - Medications/Allergies Allergies/Adverse Reactions: Allergies Allergy/AdvReac Type Severity Reaction Status Date / Time No Known Allergies Allergy Verified 10/18/18 00:57 Medications: Current Medications Acetaminophen (Tylenol) 650 mg PO Q4H PRN PRN Reason: Headache/Fever/Mild Pain (1-3) Last Admin: 10/21/18 06:04 Dose: 650 mg Hydrocodone Bitart/Acetaminophen (Fisher 7.5/325) 1 tab PO Q4H PRN PRN Reason: PAIN >4 Albuterol/Ipratropium (Duoneb) 3 ml NEB [id number] [facility] Last Admin: 10/25/18 08:00 Dose: 3 ml Aspirin (Ecotrin) 81 mg PO DAILY [facility] Last Admin: 10/25/18 09:01 Dose: 81 mg Atorvastatin Calcium (Lipitor) 20 mg PO HS [facility] Last Admin: 10/24/18 20:00 Dose: 20 mg Citalopram Hydrobromide (Celexa) 10 mg PO DAILY [facility] Last Admin: 10/25/18 09:00 Dose: 10 mg Dextrose/Water (Dextrose 50%) 25 gm SLOW IVP PRN PRN PRN Reason: Hypoglycemia Glucagon (Glucagon) 1 mg IM PRN PRN PRN Reason: Hypoglycemia Guaifenesin (Mucinex) 1,200 mg PO Q12HR [facility] Last Admin: 10/25/18 09:00 Dose: 1,200 mg HCTZ/Losartan Potassium (Hyzaar 100/25) 1 tab PO DAILY [facility] Last Admin: 10/25/18 09:01 Dose: 1 tab Dextrose/Water (D5w) 1,000 mls @ 0 mls/hr IV .Q0M PRN PRN Reason: Hypoglycemia Ceftriaxone Sodium 1 gm/ (Sodium Chloride) 100 mls @ 200 mls/hr IVPB 1500 [facility] Last Admin: 10/24/18 15:16 Dose: 100 mls Azithromycin 500 mg/ Sodium (Chloride) 250 mls @ 250 mls/hr IVPB 1400 [facility] Last Admin: 10/24/18 13:54 Dose: 250 mls Insulin Human Lispro (Humalog) 0 units SC .MILD SLIDING SCALE PRN PRN Reason: Mild Correctional Scale Last Admin: 10/23/18 13:28 Dose: 3 unit Levothyroxine Sodium (Synthroid) 25 mcg PO 0600 [facility] Last Admin: 10/25/18 05:17 Dose: 25 mcg Loratadine (Claritin) 10 mg PO DAILY [facility] Last Admin: 10/25/18 09:01 Dose: 10 mg Magnesium Hydroxide (Milk Of Magnesium) 30 ml PO DAILYPRN PRN PRN Reason: Constipation Last Admin: 10/20/18 00:08 Dose: 30 ml Metformin HCl (Glucophage) 500 mg PO BID-WM [facility] Last Admin: 10/25/18 09:00 Dose: 500 mg Mometasone Furoate/Formoterol Fumar (Dulera 200 Mcg/5 Mcg Inhaler) 2 puff INH BID-RT [facility] Last Admin: 10/25/18 08:01 Dose: 2 puff Nitroglycerin (Nitrostat) 0.4 mg SL Q5MIN PRN PRN Reason: Chest Pain Pantoprazole Sodium (Protonix) 40 mg PO 0700 [facility] Last Admin: 10/25/18 09:00 Dose: 40 mg Polyethylene Glycol (Miralax) 17 gm PO DAILY [facility] Last Admin: 10/25/18 08:57 Dose: 17 gm Prednisone (Prednisone) 40 mg PO QAM-WM [facility] Last Admin: 10/25/18 09:00 Dose: 40 mg Sodium Chloride (Flush - Normal Saline) 10 ml IVF Q12HR [facility] Last Admin: 10/25/18 09:01 Dose: 10 ml Sodium Chloride (Flush - Normal Saline) 10 ml IVF PRN PRN PRN Reason: Saline Flush Last Admin: 10/22/18 13:40 Dose: 10 ml
--- NOTE | 2018-10-25 14:24 | PRG ---
DATE OF SERVICE: 10/25/2018 SUBJECTIVE: This morning, she is still coughing, but somewhat better. OBJECTIVE: VITAL SIGNS: Saturations are 96% on 2 L, temperature 98, pulse 78, blood pressure 120/78. CHEST: Bilateral rhonchi and crackles. CARDIAC: Sinus tachycardia. ABDOMEN: Soft. IMPRESSION: Chronic bronchitis, bronchiectasis, and chronic obstructive pulmonary disease exacerbation. PLAN: Switch over to oral antibiotics. All cultures are negative. . Follow up with Dr. Calix. Job ID: [id number]
[2018-10-25] MEDS: Azithromycin 500 MG in Sodium Chloride 0.9% 250 ML 250 ML IVPB SCH (14:33)
--- NOTE | 2018-10-25 14:40 | RAD ---
RADIOGRAPH CHEST 2 VIEWS: Date: 10/25/2018. Time: 2:29 p.m. HISTORY: A 73-year-old female with COPD. COMPARISON: 10/19/2018. FINDINGS: Small to moderate-sized hiatal hernia. Mild or borderline cardiomegaly. No moderate-sized or large pleural effusion. No pulmonary edema or pneumothorax. Effacement of left lateral and left posterior costophrenic angles may represent tiny left pleural effusion. New finding of mild airspace density at base of right lower lobe, probably atelectasis, although pneumonia would be difficult to completel y exclude. IMPRESSION: 1. Mild pulmonary density at base of right lower lobe is probably subsegmental atelectasis, less lik moisés pneumonia. 2. Probably tiny left pleural effusion. 3. Borderline or mild cardiomegaly. 4. Small to moderate-sized hiatal hernia. BEENA [] POS: [place]
[2018-10-25] MEDS: Atorvastatin Calcium 20 MG TAB PO SCH (21:13)
[2018-10-25] MEDS: Doxycycline 100 MG CAP PO SCH (21:15)
[2018-10-26] MEDS: Levothyroxine Sodium 25 MCG TAB PO SCH (05:06)
[2018-10-26] MEDS: Mometasone/Formoterol 120 PUFF INHALER INH SCH (07:28)
[2018-10-26 07:46] VITALS: BP 118/78; TEMP 97.5
[2018-10-26] MEDS: Polyethylene Glycol 3350 17 GM Packet PO SCH (07:54)
[2018-10-26] MEDS: Losartan/Hydrochlorothiazide 100 mg/25 mg Tablet PO SCH (07:55)
[2018-10-26] MEDS: guaiFENesin ER 600 MG TAB PO SCH (07:55)
[2018-10-26] MEDS: Loratadine 10 MG TAB PO SCH (07:55)
[2018-10-26] MEDS: Doxycycline 100 MG CAP PO SCH (07:56)
[2018-10-26] MEDS: Aspirin 81 mg Enteric Coated Tablet PO SCH (07:56)
[2018-10-26] MEDS: predniSONE 20 MG TAB PO SCH (07:56)
[2018-10-26] MEDS: Citalopram 10 MG TAB PO SCH (07:56)
[2018-10-26] MEDS: metFORMIN 500 MG TAB PO SCH (07:56)
[2018-10-26 08:50] LABS: #Basophils 0.1 thou/uL (0.0-0.2); #Eosinphils 0.3 thou/uL (0.0-0.7); #Lymphocytes 3.3 thou/uL (1.20-3.40); #Monocytes 0.7 thou/uL (0.11-0.59); #Neutrophils 7.2 thou/uL (1.40-6.50); %Basophils 0.6 % (0.0-1.0); %Eosinophils 2.8 % (0.0-10.0); %Lymphocytes 28.1 % (21.0-51.0); %Monocytes 6.2 % (0.0-10.0); %Neutrophils 62.4 % (42.0-75.0); Hemoglobin 12.2 g/dL (12.0-16.0); Mean Corpuscular HGB CONC 30.8 g/dL (32.0-36.0); Mean Corpuscular Hemoglobin 25.3 pg (27.0-31.0); Mean Corpuscular Volume 82.3 fL (78.0-98.0); Mean Platelet Volume 8.4 fL (7.4-10.4); Platelet Count 317 thou/uL (130-400); RBC Distribution Width 14.7 % (11.5-14.5); Red Blood Cell (RBC) Count 4.82 mill/uL (4.20-5.40); White Blood Cell (WBC) Count 11.6 thou/uL (4.8-10.8)
[2018-10-26] MEDS ORDERED: Cefdinir 300 MG CAP PO SCH (09:00)
[2018-10-26 09:02] LABS: ALT (SGPT) 25 U/L (8-55); AST (SGOT) 14 U/L (5-34); Albumin 3.5 g/dL (3.4-4.8); Alkaline Phosphatase 90 U/L (40-150); Anion Gap 13 mmol/L (10-20); BUN (Urea Nitrogen) 24 mg/dL (9.8-20.1); Bilirubin, Total 0.4 mg/dL (0.2-1.2); Calc. Creatinine Clearance 72 mL/min (70-130); Calcium 8.9 mg/dL (7.8-10.44); Carbon Dioxide 23 mmol/L (23-31); Chloride 105 mmol/L (98-107); Estimated GFR-MDRD 67; Globulin 2.3 g/dL (2.4-3.5); Glucose 85 mg/dL (83-110); Potassium 3.8 mmol/L (3.5-5.1); Protein, Total 5.8 g/dL (6.0-8.3); Sodium 137 mmol/L (136-145)
--- NOTE | 2018-10-26 10:22 | PDOC.PN ---
- Subjective Encounter Start Date: 10/26/18 Encounter Start Time: 07:00 Patient seen and examined. No new complaints. No overnight events - Objective Resuscitation Status - Order Detail: 10/17/18 17:14 Resuscitation Status Routine Resuscitation Status: FULL: Full Resuscitation MAR Reviewed: Yes Vital Signs & Weight: Vital Signs (12 hours) Temp Pulse Resp BP Pulse Ox 10/26/18 07:26 76 18 95 10/26/18 07:05 97.5 F L 78 16 118/78 95 10/26/18 02:07 98.0 F 85 20 110/55 L 95 10/26/18 00:53 86 14 92 L Weight Weight 168 lb 1.6 oz I&O: 10/25/18 10/26/18 10/27/18 06:59 06:59 06:59 Intake Total 1000 Balance 1000 Result Diagrams: 10/26/18 08:01 10/26/18 08:01 Additional Labs: Accuchecks 10/26/18 10/25/18 10/25/18 05:10 21:20 17:07 POC Glucose 95 167 H 124 H 10/25/18 12:25 POC Glucose 117 H Phys Exam - Physical Examination Constitutional: NAD HEENT: PERRLA, moist MMs, sclera anicteric Neck: no JVD, supple Respiratory: no wheezing, no rales, no rhonchi Cardiovascular: RRR, no significant murmur, no rub Gastrointestinal: soft, non-tender, no distention, positive bowel sounds Musculoskeletal: no edema, pulses present Neurological: non-focal, normal sensation Lymphatic: no nodes Psychiatric: normal affect, A&O x 3 Skin: no rash, normal turgor Dx/Plan (1) Acute respiratory failure with hypoxia Code(s): J96.01 - ACUTE RESPIRATORY FAILURE WITH HYPOXIA Status: Acute Comment: Still hypoxic on room air. Will need transition O2 at home. (2) COPD (chronic obstructive pulmonary disease) with acute bronchitis Code(s): J44.0 - CHRONIC OBSTRUCTIVE PULMON DISEASE W ACUTE LOWER RESP INFCT; J20.9 - ACUTE BRONCHITIS, UNSPECIFIED Status: Acute (3) Community acquired bacterial pneumonia Code(s): J15.9 - UNSPECIFIED BACTERIAL PNEUMONIA Status: Acute Comment: (4) Anxiety and depression Code(s): F41.9 - ANXIETY DISORDER, UNSPECIFIED; F32.9 - MAJOR DEPRESSIVE DISORDER, SINGLE EPISODE, UNSPECIFIED Status: Chronic (5) DM2 (diabetes mellitus, type 2) Status: Chronic Qualifiers: Diabetes mellitus terminal worker insulin use: without group home use Diabetes mellitus complication status: without complication Qualified Code(s): E11.9 - Type 2 diabetes mellitus without complications (6) Dyslipidemia Code(s): E78.5 - HYPERLIPIDEMIA, UNSPECIFIED Status: Chronic (7) GERD (gastroesophageal reflux disease) Code(s): K21.9 - GASTRO-ESOPHAGEAL REFLUX DISEASE WITHOUT ESOPHAGITIS Status: Chronic (8) HTN (hypertension) Code(s): I10 - ESSENTIAL (PRIMARY) HYPERTENSION Status: Chronic Qualifiers: Hypertension type: essential hypertension Qualified Code(s): I10 - Essential (primary) hypertension (9) Hypothyroidism Code(s): E03.9 - HYPOTHYROIDISM, UNSPECIFIED Status: Chronic Qualifiers: Hypothyroidism type: unspecified Qualified Code(s): E03.9 - Hypothyroidism , unspecified (10) Microcytic anemia Code(s): D50.9 - IRON DEFICIENCY ANEMIA, UNSPECIFIED Status: Chronic (11) Obesity (BMI 30-39.9) Code(s): E66.9 - OBESITY, UNSPECIFIED Status: Chronic - Plan cont current plan of care, continue antibiotics, respiratory therapy * medication reviewed as below * symptomatic treatment * see discharge julian. Review of Systems - Review of Systems ENT: negative: Ear Pain, Ear Discharge, Nose Pain, Nose Discharge, Nose Congestion, Mouth Pain, Mouth Swelling, Throat Pain, Throat Swelling, Other Respiratory: Cough. negative: Dry, Shortness of Breath, Hemoptysis, SOB with Excertion, Pleuritic Pain, Sputum, Wheezing Cardiovascular: negative: chest pain, palpitations, orthopnea, paroxysmal nocturnal dyspnea, edema, light headedness, other Gastrointestinal: negative: Nausea, Vomiting, Abdominal Pain, Diarrhea, Constipation, Melena, Hematochezia, Other Genitourinary: negative: Dysuria, Frequency, Incontinence, Hematuria, Retention , Other Musculoskeletal: negative: Neck Pain, Shoulder Pain, Arm Pain, Back Pain, Hand Pain, Leg Pain, Foot Pain, Other - Medications/Allergies Allergies/Adverse Reactions: Allergies Allergy/AdvReac Type Severity Reaction Status Date / Time No Known Allergies Allergy Verified 10/18/18 00:57 Medications: Current Medications Acetaminophen (Tylenol) 650 mg PO Q4H PRN PRN Reason: Headache/Fever/Mild Pain (1-3) Last Admin: 10/21/18 06:04 Dose: 650 mg Hydrocodone Bitart/Acetaminophen ([place] 7.5/325) 1 tab PO Q4H PRN PRN Reason: PAIN >4 Last Admin: 10/26/18 02:03 Dose: 1 tab Albuterol/Ipratropium (Duoneb) 3 ml NEB [id number] [facility] Last Admin: 10/26/18 07:26 Dose: 3 ml Aspirin (Ecotrin) 81 mg PO DAILY [facility] Last Admin: 10/26/18 07:56 Dose: 81 mg Atorvastatin Calcium (Lipitor) 20 mg PO HS [facility] Last Admin: 10/25/18 21:13 Dose: 20 mg Cefdinir (Omnicef) 300 mg PO BID [facility] Last Admin: 10/26/18 07:55 Dose: 300 mg Citalopram Hydrobromide (Celexa) 10 mg PO DAILY [facility] Last Admin: 10/26/18 07:56 Dose: 10 mg Dextrose/Water (Dextrose 50%) 25 gm SLOW IVP PRN PRN PRN Reason: Hypoglycemia Doxycycline Hyclate (Vibramycin) 100 mg PO BID [facility] Last Admin: 10/26/18 07:56 Dose: 100 mg Glucagon (Glucagon) 1 mg IM PRN PRN PRN Reason: Hypoglycemia Guaifenesin (Mucinex) 1,200 mg PO Q12HR [facility] Last Admin: 10/26/18 07:55 Dose: 1,200 mg HCTZ/Losartan Potassium (Hyzaar 100/25) 1 tab PO DAILY [facility] Last Admin: 10/26/18 07:55 Dose: 1 tab Dextrose/Water (D5w) 1,000 mls @ 0 mls/hr IV .Q0M PRN PRN Reason: Hypoglycemia Insulin Human Lispro (Humalog) 0 units SC .MILD SLIDING SCALE PRN PRN Reason: Mild Correctional Scale Last Admin: 10/23/18 13:28 Dose: 3 unit Levothyroxine Sodium (Synthroid) 25 mcg PO 0600 [facility] Last Admin: 10/26/18 05:06 Dose: 25 mcg Loratadine (Claritin) 10 mg PO DAILY [facility] Last Admin: 10/26/18 07:55 Dose: 10 mg Magnesium Hydroxide (Milk Of Magnesium) 30 ml PO DAILYPRN PRN PRN Reason: Constipation Last Admin: 10/20/18 00:08 Dose: 30 ml Metformin HCl (Glucophage) 500 mg PO BID-[facility] Last Admin: 10/26/18 07:56 Dose: 500 mg Mometasone Furoate/Formoterol Fumar (Dulera 200 Mcg/5 Mcg Inhaler) 2 puff INH BID-RT [facility] Last Admin: 10/26/18 07:28 Dose: 2 puff Nitroglycerin (Nitrostat) 0.4 mg SL Q5MIN PRN PRN Reason: Chest Pain Pantoprazole Sodium (Protonix) 40 mg PO 0700 [facility] Last Admin: 10/26/18 07:56 Dose: 40 mg Polyethylene Glycol (Miralax) 17 gm PO DAILY [facility] Last Admin: 10/26/18 07:54 Dose: 17 gm Prednisone (Prednisone) 40 mg PO QAM-[facility] Last Admin: 10/26/18 07:56 Dose: 40 mg Sodium Chloride (Flush - Normal Saline) 10 ml IVF Q12HR [facility] Last Admin: 10/26/18 07:56 Dose: 10 ml Sodium Chloride (Flush - Normal Saline) 10 ml IVF PRN PRN PRN Reason: Saline Flush Last Admin: 10/22/18 13:40 Dose: 10 ml
--- NOTE | 2018-10-26 10:56 | DIS ---
DATE OF ADMISSION: 10/18/2018 DATE OF DISCHARGE: 10/26/2018 PRIMARY CARE PHYSICIAN: Shannon Ta MD. DISCHARGE DISPOSITION: Home with home oxygen. PRIMARY DISCHARGE DIAGNOSES: 1. Acute respiratory failure with hypoxia. 2. Chronic obstructive pulmonary disease exacerbation. 3. Community-acquired bacterial pneumonia, likely due to streptococcal. SECONDARY DISCHARGE DIAGNOSES: Obesity with BMI 34, obstructive sleep apnea, microcytic anemia, hypothyroidism, hypertension, gastroesophageal reflux disease, dyslipidemia, diabetes type 2, anxiety and depression, chronic obstructive pulmonary disease. PRIMARY PROCEDURE/OPERATION: None. RADIOLOGICAL INVESTIGATION: Chest x-ray. SIGNIFICANT LABORATORY DATA: WBC 11.6, hemoglobin 12.2, platelet 317. Sodium 137, creatinine 0.83. Electrolytes normal. LFTs normal. Aspergillus fumigatus. Allergen IgE negative. Total IgE level 336. DISCHARGE MEDICATIONS: 1. Albuterol sulfate nebulization b.i.d. 2. Aspirin 81 mg daily. 3. Lipitor 20 mg daily. 4. Cetirizine 10 mg daily. 5. Vitamin D3 2000 units p.o. daily. 6. Celexa 10 mg daily. 7. Nexium 40 mg daily. 8. [place] one tablet q.6 hourly p.r.n. 9. Xopenex inhaler q.8 hourly p.r.n. 10. Synthroid 25 mcg daily. 11. Losartan with hydrochlorothiazide 1 tablet daily. 12. Mobic 7.5 mg daily p.r.n. 13. Metformin 500 mg b.i.d. 14. Mucinex 1200 mg twice daily for 7 days. 15. Doxycycline 100 mg twice daily for 7 days. 16. Protonix 40 mg p.o. daily for 2 weeks. 17. MiraLAX 17 g p.o. daily. 18. Dulera two puffs inhalation b.i.d. CONTRAINDICATION: None. CODE STATUS: Full code. INPATIENT GOLD LAYER: Pulmonary group was following while in hospital. TEST RESULT PENDING ON DISCHARGE: None. ALLERGIES: NO KNOWN DRUG ALLERGIES. DISCHARGE PLAN: Posthospital, the patient is instructed to follow up with Dr. Calix as instructed and primary care physician in 1 week. HOSPITAL COURSE: A 73-year-old female, who was admitted by Dr. Bertrand on October 17, 2018. Please see his H and P for further details. The patient has underlying history of COPD and this time she was noted to be having acute respiratory failure secondary to COPD exacerbation. We also found that the patient has infiltration on her x-ray which was consistent with community-acquired pneumonia and while in the hospital, we treated her with Rocephin, azithromycin for common organism including streptococcal. The patient's cultures remain negative. The patient was afebrile while in hospital. This patient required prolonged hospital course because her symptoms was not improving very fast. She was optimally treated with COPD treatment while in hospital. Her home medication was continued on discharge as we continued prednisone for 7 more days. The patient is given doxycycline and Mucinex upon discharge. At this point, the patient needs home oxygen because her saturation drops to below 88% on room air and after walking and that is why with help of field nurse case manager, we are going to arrange home oxygen before discharge. The patient is seen and examined at bedside today. Please see my progress note from today for further detail. Job ID: [id number]
[2018-10-26] MEDS: HumaLOG 300 UNITS/3 ML VIAL SC PRN (13:04)
[2018-10-27 19:11] LABS: A. flavus Negative (Neg:<1:1); A. fumigatus Negative (Neg:<1:1); A. niger Negative (Neg:<1:1)
== END 2018-10-26 15:13 | disposition home or self-care (01) | DRG 193 ==
LOC: ERS 13:41 → ERHOLD 16:17 → ONC 20:14 → 2SW 21:31 → OBSVTOIN 10-18 12:49 → ONC 10-18 17:02
PROVIDERS: ADMIT Internal Medicine; ATTEND Internal Medicine
DX: J15.4 Pneumonia due to other streptococci (principal); J96.01 Acute respiratory failure with hypoxia; J44.1 Chronic obstructive pulmonary disease with (acute) exacerbation; J44.0 Chronic obstructive pulmonary disease with (acute) lower respiratory infection; I10 Essential (primary) hypertension; G47.33 Obstructive sleep apnea (adult) (pediatric); E11.9 Type 2 diabetes mellitus without complications; K44.9 Diaphragmatic hernia without obstruction or gangrene; E78.5 Hyperlipidemia, unspecified; D64.9 Anemia, unspecified; F41.8 Other specified anxiety disorders; E66.9 Obesity, unspecified; K21.9 Gastro-esophageal reflux disease without esophagitis; E55.9 Vitamin D deficiency, unspecified; E03.9 Hypothyroidism, unspecified; Z68.34 Body mass index [BMI] 34.0-34.9, adult; Z79.84 Long term (current) use of oral hypoglycemic drugs; Z79.82 Long term (current) use of aspirin
CPT/HCPCS: 36415; 36416; 71045; 71046; 80048; 80053; 82550; 82785; 83690; 83880; 84484; 85025; 86606; 93005; 94664; 94667; 94668; 94760; 96374; J0456; J0696; J2920; J2930; J7050; J7620

== ENCOUNTER 2018-12-15 09:08 | Outpatient (CLI) | payer MEDICARE ==
--- NOTE | 2018-12-15 09:28 | RAD ---
CHEST TWO VIEWS: HISTORY: Dyspnea. FINDINGS: PA and lateral views of the chest obtained on 12/15/2018. Comparison made to previous exam from 2016. Two views of the chest demonstrates ectasia of the aorta. Mild cardiomegaly is seen. Pulmonary vascul ar congestion seen. No evidence of effusions, pneumonia or pneumothorax seen. IMPRESSION: Mild cardiomegaly. Transcribed Date/Time: 12/15/2018 9:44 AM
== END 2018-12-15 09:09 | disposition home or self-care (01) ==
LOC: RAD 09:08
PROVIDERS: ATTEND Internal Medicine
DX: R06.00 Dyspnea, unspecified (principal); I51.7 Cardiomegaly
CPT/HCPCS: 36415; 71046; 83520; 84165; 86200; 86256

== ENCOUNTER 2018-12-21 15:39 | Inpatient (IN) | payer MEDICARE ==
[2018-12-21 16:44] LABS: #Basophils 0.1 thou/uL (0.0-0.2); #Eosinphils 2.1 thou/uL (0.0-0.7); #Lymphocytes 2.5 thou/uL (1.20-3.40); #Monocytes 0.5 thou/uL (0.11-0.59); #Neutrophils 5.8 thou/uL (1.40-6.50); %Basophils 0.7 % (0.0-1.0); %Eosinophils 18.9 % (0.0-10.0); %Lymphocytes 22.4 % (21.0-51.0); %Monocytes 4.8 % (0.0-10.0); %Neutrophils 53.2 % (42.0-75.0); Hemoglobin 13.3 g/dL (12.0-16.0); Mean Corpuscular HGB CONC 32.6 g/dL (32.0-36.0); Mean Corpuscular Hemoglobin 27.1 pg (27.0-31.0); Platelet Count 331 thou/uL (130-400); RBC Distribution Width 15.9 % (11.5-14.5); Red Blood Cell (RBC) Count 4.93 mill/uL (4.20-5.40)
[2018-12-21] MEDS ORDERED: methylPREDNISolone Sod Succ/PF 125 MG/2 ML VIAL ONE (16:58)
[2018-12-21 17:05] LABS: ALT (SGPT) 12 U/L (8-55); AST (SGOT) 15 U/L (5-34); Albumin 4.4 g/dL (3.4-4.8); Alkaline Phosphatase 147 U/L (40-150); Anion Gap 13 mmol/L (10-20); BUN (Urea Nitrogen) 21 mg/dL (9.8-20.1); Bilirubin, Total 0.3 mg/dL (0.2-1.2); Calc. Creatinine Clearance 0 mL/min (70-130); Calcium 10.2 mg/dL (7.8-10.44); Carbon Dioxide 25 mmol/L (23-31); Chloride 102 mmol/L (98-107); Estimated GFR-MDRD 48; Globulin 2.5 g/dL (2.4-3.5); Glucose 122 mg/dL (83-110); Potassium 3.9 mmol/L (3.5-5.1); Protein, Total 6.9 g/dL (6.0-8.3); Sodium 136 mmol/L (136-145)
--- NOTE | 2018-12-21 17:38 | RAD ---
XR Chest Pa Lat STANDARD History: [Cough] Comparison: Chest radiograph December 15, 2018 Findings: There is a linear opacity left lung base. Abnormal right perihilar opacity is present. Card iac silhouette and basal contours are similar. Likely a sliding hiatal hernia. Right upper quadrant surgical clips. Impression: Abnormal right perihilar and lower lobe opacity concerning for pneumonia/aspiration. Foll ow-up after treatment is recommended.
[2018-12-21] MEDS ORDERED: Piperacillin/Tazobactam 3.375 GM VIAL ONE (19:42)
[2018-12-21] MEDS ORDERED: Ondansetron PF 4 MG/2 ML Vial IVP PRN (21:02)
[2018-12-21] MEDS ORDERED: Ondansetron ODT 4 MG TAB SL PRN (21:02)
[2018-12-21] MEDS ORDERED: Acetaminophen 325 MG TAB PO PRN (21:02)
[2018-12-21 21:56] LABS: Lactic Acid 1.6 mmol/L (0.5-2.2)
[2018-12-21 22:05] VITALS: BMI 32.4
[2018-12-21] MEDS ORDERED: Dextrose 50% Abboject 50 ML SYRINGE SLOW IVP PRN (22:30)
[2018-12-21] MEDS ORDERED: Bisacodyl 5 MG TAB PO PRN (22:30)
[2018-12-21] MEDS ORDERED: Dextrose 5% in Water 1,000 ML IV PRN (22:30)
--- NOTE | 2018-12-21 22:48 | HP ---
PRIMARY CARE PROVIDER: Shannon Ta MD CHIEF COMPLAINT: Shortness of breath. HISTORY OF PRESENT ILLNESS: Ms. Bojorquez is a pleasant 73-year-old primarily Polish-speaking lady who was seen at [facility] on December 21, 2018. She was hospitalized at this facility from October 18 to of this year for acute hypoxic respiratory failure, COPD exacerbation and community-acquired bacterial pneumonia. She reports doing well until 1 month ago. At that time, she developed cough. Cough is productive of yellowish sputum. She denies any fevers. She denies any chills. She denies any nausea or vomiting. She reports shortness of breath with exertion that has been progressively getting worse. REVIEW OF SYSTEMS: All other systems reviewed and found to be negative. PAST MEDICAL HISTORY: Obstructive sleep apnea syndrome, not on CPAP therapy, hypertension, diabetes mellitus type 2, dyslipidemia, chronic anemia, chronic bronchitis, asthma, gastroesophageal reflux disease, hiatal hernia, vitamin D deficiency, hypothyroidism, and chronic anemia. PAST SURGICAL HISTORY: Right rotator cuff surgery, right leg surgery, appendectomy, cholecystectomy. FAMILY HISTORY: Dementia and malignancy in her mother, rheumatoid arthritis in her father. SOCIAL HISTORY: The patient denies tobacco use, alcohol use, or recreational drug use. She is full code. Her daughter is her surrogate decision maker. ALLERGIES: NONE. CURRENT MEDICATIONS: 1. Nexium 40 mg daily. 2. Atorvastatin 20 mg daily. 3. Citalopram 10 mg daily. 4. Metformin 500 mg 2 times daily. 5. Levothyroxine 25 mcg daily. 6. Losartan/hydrochlorothiazide 100/25 mg daily. 7. Aspirin 325 mg daily. 8. Vitamin D3 2000 units daily. 9. Albuterol sulfate inhalation p.r.n. 10. Cetirizine 10 mg daily. 11. [place] 7.5/325 mg every 6 hours as needed. 12. Xopenex nebulizer 3 mL every 8 hours as needed. PHYSICAL EXAMINATION: GENERAL: On examination, Ms. Bojorquez is awake and alert, not in acute distress. VITAL SIGNS: Blood pressure is 131/58, pulse 82, respiratory rate 18, and oxygen saturation 92% on 3 L of oxygen. She is afebrile. EYES: No scleral icterus, no conjunctival pallor. ENT: Moist mucosal membranes. No oropharyngeal erythema or exudates. NECK: Supple, nontender, trachea is midline. RESPIRATORY: Accessory muscles of breathing are not active. Chest wall movements are symmetric bilaterally. Lung examination reveals right lower lobe bronchial breathing. CARDIOVASCULAR: S1 and S2 are heard, regular. Peripheral pulses palpable. No carotid bruit. No pericardial rub. ABDOMEN: Soft, nontender, bowel sounds are heard. MUSCULOSKELETAL: Power is 5/5 in all 4 extremities. SKIN: No rashes or subcutaneous nodules. LYMPHATIC: No cervical lymphadenopathy. PSYCHIATRIC: Normal mood, normal affect, the patient is oriented x3. LABORATORY STUDIES: Ms. Bojorquez' labs and investigations were reviewed. I reviewed her electrocardiogram, which shows normal sinus rhythm, no ST changes to suggest an acute coronary syndrome. I also reviewed her chest x-ray, which shows right lower lobe and perihilar infiltrates. She has leukocytosis with 11,000 white cells, of which 53.2% are neutrophils, elevated blood urea nitrogen of 21, elevated creatinine of 1.11, last known creatinine 0.83 on October 26, 2018, otherwise unremarkable comprehensive metabolic profile and normal lactic acid level. ASSESSMENT AND PLAN: Ms. Bojorquez is a pleasant 73-year-old lady, who was seen at [facility] on December 21, 2018. Her problem list includes: 1. Acute hypoxic respiratory failure: Ms. Bojorquez is presenting with acute hypoxic respiratory failure, most likely secondary to pneumonia. She will be admitted to the hospital for further management. She will be treated with antibiotics and bronchodilators. Given her recent hospitalization, she has received vancomycin and Zosyn in the emergency room, which I will continue. 2. Pneumonia: We will continue vancomycin and Zosyn. 3. Diabetes mellitus type 2: We will start Accu-Cheks and insulin sliding scale. 4. Hypothyroidism: We will continue Synthroid. 5. Hypertension: We will continue antihypertensives, monitor vital signs and titrate antihypertensives as needed. 6. Dyslipidemia: We will continue statin. 7. Acute kidney injury: She has mildly elevated creatinine. We will give her intravenous fluids and recheck creatinine. Many thanks for allowing me to participate in your patient's care. Please feel free to contact me with any questions or concerns. LEVEL OF RISK: High. LEVEL OF COMPLEXITY: High. Job ID: [id number]
[2018-12-21] MEDS: Sodium Chloride 0.9% 1,000 ML IV SCH (23:40)
[2018-12-22] MEDS: Piperacillin/Tazobactam 4.5 GM in Sodium Chloride 0.9% 100 ML IVPB SCH ×3 (05:31→21:02)
[2018-12-22 05:57] LABS: #Monocytes 0.1 thou/uL (0.11-0.59); #Neutrophils 5.9 thou/uL (1.40-6.50); %Eosinophils 0.1 % (0.0-10.0); %Lymphocytes 13.9 % (21.0-51.0); %Monocytes 1.7 % (0.0-10.0); %Neutrophils 84.3 % (42.0-75.0); Hemoglobin 12.9 g/dL (12.0-16.0); Mean Corpuscular HGB CONC 32.5 g/dL (32.0-36.0); Mean Corpuscular Hemoglobin 27.3 pg (27.0-31.0); Mean Corpuscular Volume 84.1 fL (78.0-98.0); Mean Platelet Volume 8.3 fL (7.4-10.4); Platelet Count 302 thou/uL (130-400); RBC Distribution Width 15.8 % (11.5-14.5); Red Blood Cell (RBC) Count 4.72 mill/uL (4.20-5.40)
[2018-12-22 06:19] LABS: Anion Gap 14 mmol/L (10-20); BUN (Urea Nitrogen) 20 mg/dL (9.8-20.1); Calc. Creatinine Clearance 68 mL/min (70-130); Calcium 9.6 mg/dL (7.8-10.44); Carbon Dioxide 20 mmol/L (23-31); Chloride 104 mmol/L (98-107); Estimated GFR-MDRD 67; Glucose 162 mg/dL (83-110); Potassium 4.1 mmol/L (3.5-5.1); Sodium 134 mmol/L (136-145)
[2018-12-22] MEDS: Vancomycin HCl 750 MG in Sodium Chloride 0.9% 250 ML 250 ML IVPB SCH (08:29)
[2018-12-22] MEDS: Enoxaparin Sodium 40 MG/0.4 ML SYRINGE SC SCH (08:51)
[2018-12-22] MEDS ORDERED: Vancomycin HCl 750 MG in Sodium Chloride 0.9% 250 ML 250 ML IVPB SCH (09:00)
[2018-12-22] MEDS: Sodium Chloride 0.9% 1,000 ML IV SCH (13:45)
[2018-12-22] MEDS: Acetaminophen 325 MG TAB PO PRN (13:50)
--- NOTE | 2018-12-22 14:37 | PDOC.PN ---
- Subjective Encounter Start Date: 12/22/18 Encounter Start Time: 10:30 Subjective: sob is better, has cough with sputum production -: no fever -: no chest pain or palp - Objective Resuscitation Status - Order Detail: 12/21/18 22:30 Resuscitation Status Routine Resuscitation Status: FULL: Full Resuscitation Discussed with: jacquelyn LEON Reviewed: Yes Vital Signs & Weight: Vital Signs (12 hours) Temp Pulse Resp BP Pulse Ox 12/22/18 08:00 97.5 F L 79 18 124/63 93 L 12/22/18 04:00 97.7 F 81 20 144/71 H 92 L Weight Weight 160 lb 12.8 oz I&O: 12/21/18 12/22/18 12/23/18 06:59 06:59 06:59 Intake Total 640 Balance 640 Result Diagrams: 12/22/18 05:26 12/22/18 05:25 Additional Labs: Accuchecks 12/22/18 12/22/18 11:08 05:36 POC Glucose 119 H 164 H Phys Exam - Physical Examination HEENT: PERRLA, moist MMs Neck: no JVD, supple Respiratory: no wheezing, no rales rhonchi+ Cardiovascular: RRR, no significant murmur Gastrointestinal: soft, non-tender, positive bowel sounds Musculoskeletal: no edema, pulses present Neurological: non-focal, moves all 4 limbs Psychiatric: normal affect, A&O x 3 Dx/Plan (1) Bronchiectasis with (acute) exacerbation Status: Acute (2) Anxiety and depression Code(s): F41.9 - ANXIETY DISORDER, UNSPECIFIED; F32.9 - MAJOR DEPRESSIVE DISORDER, SINGLE EPISODE, UNSPECIFIED Status: Chronic (3) DM2 (diabetes mellitus, type 2) Status: Chronic Qualifiers: Diabetes mellitus termite renewal inspector insulin use: without custodial use Diabetes mellitus complication status: with unspecified complications Qualified Code(s) : E11.8 - Type 2 diabetes mellitus with unspecified complications (4) Dyslipidemia Code(s): E78.5 - HYPERLIPIDEMIA, UNSPECIFIED Status: Chronic (5) GERD (gastroesophageal reflux disease) Code(s): K21.9 - GASTRO-ESOPHAGEAL REFLUX DISEASE WITHOUT ESOPHAGITIS Status: Chronic Qualifiers: Esophagitis presence: esophagitis presence not specified Qualified Code(s) : K21.9 - Gastro-esophageal reflux disease without esophagitis (6) HTN (hypertension) Code(s): I10 - ESSENTIAL (PRIMARY) HYPERTENSION Status: Chronic Qualifiers: (7) Hypothyroidism Code(s): E03.9 - HYPOTHYROIDISM, UNSPECIFIED Status: Chronic Qualifiers: (8) Microcytic anemia Code(s): D50.9 - IRON DEFICIENCY ANEMIA, UNSPECIFIED Status: Chronic (9) Obesity (BMI 30-39.9) Code(s): E66.9 - OBESITY, UNSPECIFIED Status: Chronic - Plan is on vanc and zosyn, will add short course of steroids -: is a pt of /Liana will consult for help -: nebs, dc iv fluids, oob to chair and ambulate -: home meds -: may tx to med floor in am if stable * . Review of Systems - Medications/Allergies Allergies/Adverse Reactions: Allergies Allergy/AdvReac Type Severity Reaction Status Date / Time No Known Allergies Allergy Verified 12/21/18 22:16 Medications: Current Medications Acetaminophen (Tylenol) 650 mg PO Q4H PRN PRN Reason: Headache/Fever/Mild Pain (1-3) Last Admin: 12/22/18 13:50 Dose: 650 mg Bisacodyl (Dulcolax) 10 mg PO DAILYPRN PRN PRN Reason: Constipation Dextrose/Water (Dextrose 50%) 25 gm SLOW IVP PRN PRN PRN Reason: Hypoglycemia Enoxaparin Sodium (Lovenox) 40 mg SC 0900 [facility] Last Admin: 12/22/18 08:51 Dose: 40 mg Glucagon (Glucagon) 1 mg IM PRN PRN PRN Reason: Hypoglycemia Piperacillin Sod/Tazobactam (Sod 4.5 gm/ Sodium Chloride) 100 mls @ 200 mls/hr IVPB Q8HR [facility] Last Admin: 12/22/18 13:44 Dose: 100 mls Dextrose/Water (D5w) 1,000 mls @ 0 mls/hr IV .Q0M PRN PRN Reason: Hypoglycemia Vancomycin HCl 750 mg/ Sodium (Chloride) 250 mls @ 200 mls/hr IVPB 0900 [facility] Last Admin: 12/22/18 08:29 Dose: 250 mls Insulin Human Lispro (Humalog) 0 units SC .MILD SLIDING SCALE PRN PRN Reason: Mild Correctional Scale Methylprednisolone Sodium Succinate (Solu-Medrol) 20 mg IVP Q8HR [facility] Miscellaneous Medication (Pharmacy To Dose) 1 each IVPB PRN PRN PRN Reason: Pharmacy to dose
[2018-12-22] MEDS ORDERED: Bacteriostatic Water 30 ML VIAL FS PRN (15:47)
[2018-12-22] MEDS: metFORMIN 500 MG TAB PO SCH (18:09)
[2018-12-22] MEDS: Azithromycin 250 MG TAB PO SCH (18:10)
[2018-12-22] MEDS ORDERED: Mometasone Furoate 120 PUFF 220 MCG INH SCH (18:30)
[2018-12-22] MEDS: Mometasone Furoate 30 PUFF 220 MCG INH SCH (18:52)
[2018-12-22] MEDS ORDERED: BECLOMETHASONE DIPROPIONATE 8.7 GM IH SCH (21:00)
[2018-12-22] MEDS: methylPREDNISolone Sod Succ 40 MG VIAL IVP SCH (21:03)
--- NOTE | 2018-12-22 21:08 | CON ---
DATE OF CONSULTATION: 12/22/2018 CONSULTING PHYSICIAN: Alicia Dickey MD REASON FOR CONSULTATION: Bronchiectasis. HISTORY OF PRESENT ILLNESS: Ms. Bojorquez is a 73-year-old British female who is a patient of Dr. Calix. She came to the hospital yesterday with a 1-week history of increasing cough and shortness of breath. She says she has been coughing up green sputum. She has been treated with antibiotics overnight and does not feel any better today. I have had an opportunity to review her notes from our office. She has been diagnosed with severe chronic persistent asthma, DAYDAY, gastroesophageal reflux with severe hiatal hernia. She also has bronchiectasis with chronic mucopurulent sputum. Her current respiratory medications include Arnuity Ellipta 200 mcg daily, Singulair 10 mg daily, levalbuterol nebulizer as needed. She was recently prescribed Dupixent 200 mg subcu every 2 weeks, but has been unable to afford that medication. She denies any fever or chills. She has had no chest pain. PAST MEDICAL HISTORY: See above. Additionally, she has hypothyroidism, chronic anemia, vitamin D deficiency, hyperlipidemia, and hypertension. PAST SURGICAL HISTORY: 1. Right rotator cuff surgery. 2. Right leg surgery. 3. Appendectomy. 4. Cholecystectomy. FAMILY MEDICAL HISTORY: Remarkable for dementia, cancer, and rheumatoid arthritis. SOCIAL HISTORY: Lifelong nonsmoker. Does not consume alcohol. Does not use illicit drugs. MEDICATIONS: Prior to admission, in addition to the medications above, she is using 1. Nexium 40 mg daily. 2. Atorvastatin 20 mg daily. 3. Citalopram 10 mg daily. 4. Metformin 500 mg b.i.d. 5. Levothyroxine 25 mcg daily. 6. Losartan/hydrochlorothiazide 100/25 daily. 7. Aspirin 325 mg daily. 8. Vitamin D3 2000 units daily. 9. Zyrtec 10 mg daily. 10. [place] 7.5/325 one every 6 hours as needed. REVIEW OF SYSTEMS: No fever, chills, nausea, vomiting, chest pain, hemoptysis, melena, hematochezia, hematuria, or dysuria. Remainder of 12-point review of systems negative. PHYSICAL EXAMINATION: VITAL SIGNS: Temperature 97.5, pulse 79, respirations 19, O2 saturation 93% on 3 L, blood pressure 124/63. GENERAL: The patient is sitting up, she is in no acute distress. HEENT: Pupils reactive to light. Sclerae are anicteric. Oropharynx is clear. NECK: No adenopathy. No JVD. No bruits. LUNGS: She has coarse rhonchi bilaterally, more notable over the right base posteriorly and less pervasive on the left. CARDIAC: S1, S2, regular without audible murmur. ABDOMEN: Soft, nontender, and nondistended. EXTREMITIES: No clubbing, cyanosis. She has trace edema from the feet to the ankles bilaterally. LABORATORY DATA: White blood cell count 7.0, hematocrit 39.7, and platelet count 302. Sodium 134, potassium 4.1, chloride 104, CO2 of 20, BUN 20, creatinine 0.8, glucose 162, calcium was 9.6, lactate 1.6. Her chest x-ray showed what appears to be an infiltrate in the left lower lobe as she has air bronchograms in that region. She also has a very prominent hiatal hernia. ASSESSMENT: 1. Exacerbation of bronchiectasis versus overt pneumonia. 2. History of chronic persistent asthma. 3. Chronic bronchitis. 4. Chronic cough. 5. Acute hypoxemia related to current episode of bronchiectasis/bronchitis. RECOMMENDATIONS: 1. I have reviewed the orders in the chart and agree with the broad-spectrum IV antibiotics, which so far include Zosyn and vancomycin. It might be advisable to use a quinolone or macrolide. Macrolide might have a better anti-inflammatory effect. Agree with IV steroids. 2. Consider putting the patient on EzPAP with an inhaled anticholinergic since she seems to be sensitive to beta agonist. The EzPAP and/or flutter valve would be beneficial in helping her clear out secretions. 3. I will advise Dr. Calix of the patient's admission. Job ID: [id number]
[2018-12-23] MEDS: Levothyroxine Sodium 25 MCG TAB PO SCH (05:39)
[2018-12-23] MEDS: methylPREDNISolone Sod Succ 40 MG VIAL IVP SCH ×3 (05:39→21:05)
[2018-12-23] MEDS: Piperacillin/Tazobactam 4.5 GM in Sodium Chloride 0.9% 100 ML IVPB SCH ×3 (05:39→21:04)
[2018-12-23 08:04] LABS: #Lymphocytes 0.9 thou/uL (1.20-3.40); #Monocytes 0.1 thou/uL (0.11-0.59); #Neutrophils 7.7 thou/uL (1.40-6.50); %Basophils 0.1 % (0.0-1.0); %Eosinophils 0.1 % (0.0-10.0); %Lymphocytes 9.8 % (21.0-51.0); %Monocytes 1.4 % (0.0-10.0); %Neutrophils 88.6 % (42.0-75.0); Hemoglobin 12.7 g/dL (12.0-16.0); Mean Corpuscular HGB CONC 32.5 g/dL (32.0-36.0); Mean Corpuscular Hemoglobin 27.2 pg (27.0-31.0); Mean Corpuscular Volume 83.8 fL (78.0-98.0); Mean Platelet Volume 8.2 fL (7.4-10.4); Platelet Count 295 thou/uL (130-400); RBC Distribution Width 15.9 % (11.5-14.5); Red Blood Cell (RBC) Count 4.65 mill/uL (4.20-5.40); White Blood Cell (WBC) Count 8.6 thou/uL (4.8-10.8)
[2018-12-23] MEDS: Ferrous Sulfate 325 MG TAB PO SCH (08:12)
[2018-12-23] MEDS: metFORMIN 500 MG TAB PO SCH ×2 (08:12→17:18)
[2018-12-23] MEDS: Citalopram 10 MG TAB PO SCH (08:12)
[2018-12-23] MEDS: Atorvastatin Calcium 20 MG TAB PO SCH (08:12)
[2018-12-23] MEDS: Loratadine 10 MG TAB PO SCH (08:12)
[2018-12-23] MEDS: Aspirin 81 mg Enteric Coated Tablet PO SCH (08:12)
[2018-12-23] MEDS: Montelukast Sodium 10 mg Tablet PO SCH (08:13)
[2018-12-23] MEDS: Enoxaparin Sodium 40 MG/0.4 ML SYRINGE SC SCH (08:13)
[2018-12-23 08:26] LABS: Vancomycin, Trough 8.3 ug/mL
[2018-12-23 08:29] LABS: Anion Gap 14 mmol/L (10-20); BUN (Urea Nitrogen) 18 mg/dL (9.8-20.1); Calc. Creatinine Clearance 63 mL/min (70-130); Calcium 9.5 mg/dL (7.8-10.44); Carbon Dioxide 22 mmol/L (23-31); Chloride 106 mmol/L (98-107); Estimated GFR-MDRD 61; Glucose 163 mg/dL (83-110); Potassium 3.8 mmol/L (3.5-5.1); Sodium 138 mmol/L (136-145)
[2018-12-23] MEDS: Vancomycin HCl 750 MG in Sodium Chloride 0.9% 250 ML 250 ML IVPB SCH (09:51)
[2018-12-23] MEDS ORDERED: Vancomycin HCl 250 MG in Sodium Chloride 0.9% 100 ML IVPB SCH (11:00)
[2018-12-23] MEDS: HumaLOG 300 UNITS/3 ML VIAL SC PRN (11:46)
[2018-12-23] MEDS ORDERED: Sodium Chloride 0.9% 10 ML ONE (14:32)
--- NOTE | 2018-12-23 15:51 | PRG ---
DATE OF SERVICE: 12/23/2018 SERVICE: Pulmonary Medicine. INTERVAL HISTORY: The patient is doing fine from respiratory standpoint. Breathing comfortably. She continues to cough. She brings up a little bit of green phlegm, but otherwise, she had an uneventful evening. She is back on oxygen. She has no specific complaints of fevers, chills, nausea, or vomiting. She does not have any diarrhea. There are no new hot or red swollen joints, or rashes. Otherwise, she is progressing well. PHYSICAL EXAMINATION: VITAL SIGNS: Afebrile, pulse 85, blood pressure 124/62, respirations 20, and saturation 93% on 3 L nasal cannula. GENERAL: The patient is awake and alert, in no apparent distress. LUNGS: Rhonchi are present. There is no prolonged expiratory phase today. No wheezing or crackles are appreciated. HEART: Normal rate and regular. ABDOMEN: Soft, nontender, and nondistended. Bowel sounds are positive. MUSCULOSKELETAL: No cyanosis or clubbing. No pitting in the bilateral lower extremities. NEUROLOGIC: Grossly nonfocal. LABORATORY DATA: WBC 8.6, hemoglobin 12.7, platelets 295,000. Creatinine 0.90. Basic metabolic profile is otherwise unremarkable. Liver function studies, troponin, lactate, and calcium are all unremarkable. Blood cultures x2, influenza A and B are unremarkable. ASSESSMENT: 1. Acute hypoxic respiratory failure. 2. Community-acquired pneumonia. 3. Bronchiectasis with acute exacerbation. 4. Asthma with acute exacerbation. 5. Obstructive sleep apnea, never able to initiate CPAP therapy. 6. Gastroesophageal reflux disease, horrendous. DISCUSSION AND PLAN: We will continue our steroids, nebulized medications, and antibiotics. Antibiotics can be limited to a 5-day duration. We will continue the steroids for the next 2 weeks of 40 mg daily. After that, we will need to slowly taper these things away as time goes by. We will try to find a minimum effective dose of steroids for her. We are trying to make some modifications to her outpatient medications, but it is proven difficult that she does not qualify for some of the biologic agents directed as severe asthma. We will continue working on setting her up for her auto titrating CPAP device. This also proving challenging because of funding issues. I will continue to follow while the patient remains inhouse. Job ID: [id number]
--- NOTE | 2018-12-23 16:13 | PDOC.PN ---
- Subjective Encounter Start Date: 12/23/18 Encounter Start Time: 16:11 Subjective: feels SOB w exertion. No Cough/CP. - Objective Resuscitation Status - Order Detail: 12/21/18 22:30 Resuscitation Status Routine Resuscitation Status: FULL: Full Resuscitation Discussed with: jacquelyn LEON Reviewed: Yes Vital Signs & Weight: Vital Signs (12 hours) Temp Pulse Resp BP Pulse Ox 12/23/18 15:21 97.6 F 93 18 115/55 L 98 12/23/18 12:39 85 16 90 L 12/23/18 11:25 98.2 F 85 20 124/62 93 L 12/23/18 07:25 98.1 F 79 18 123/85 94 L 12/23/18 06:54 90 L 12/23/18 06:52 75 16 90 L Weight Weight 160 lb 12.8 oz I&O: 12/22/18 12/23/18 12/24/18 06:59 06:59 06:59 Intake Total 640 240 Balance 640 240 Result Diagrams: 12/23/18 07:40 12/23/18 07:40 Additional Labs: Accuchecks 12/23/18 12/23/18 12/22/18 11:00 05:37 20:10 POC Glucose 213 H 161 H 210 H 12/22/18 16:59 POC Glucose 105 Microbiology 12/21/18 17:59 Nasal swab Influenza Types A,B Direct EIA - Final 12/21/18 19:40 Venous blood - Right Arm Blood Culture - Preliminary Specimen has been received and culture in progress. No Growth to date. 12/21/18 19:40 Venous blood - Left Arm Blood Culture - Preliminary Specimen has been received and culture in progress. No Growth to date. Phys Exam - Physical Examination Constitutional: NAD HEENT: PERRLA, moist MMs, sclera anicteric, oral pharynx no lesions Neck: no nodes, no JVD, supple, full ROM reduced at bases. scattered wheezes Cardiovascular: RRR, no significant murmur, no rub Gastrointestinal: soft, non-tender, no distention, positive bowel sounds Musculoskeletal: no edema, pulses present Neurological: non-focal, normal sensation, moves all 4 limbs Psychiatric: normal affect, A&O x 3 Dx/Plan (1) Acute respiratory failure with hypoxia Code(s): J96.01 - ACUTE RESPIRATORY FAILURE WITH HYPOXIA Status: Acute Comment: on Home o2.improving. multifactorial.supportive care.ABx, steroids, nebs etc (2) Bronchiectasis with (acute) exacerbation Status: Acute Comment: cont solumedrol.Qvar,Asmanex,nebs (3) Community acquired bacterial pneumonia Code(s): J15.9 - UNSPECIFIED BACTERIAL PNEUMONIA Status: Acute Comment: on Vanco+zosyn+PO Azithromycin. Taper if Cx remain negative (4) DM2 (diabetes mellitus, type 2) Status: Chronic Qualifiers: Diabetes mellitus terminologist insulin use: without terminologist use Diabetes mellitus complication status: with unspecified complications Qualified Code(s) : E11.8 - Type 2 diabetes mellitus with unspecified complications Comment: On metfromin and ISS .Accuchecks achs (5) Dyslipidemia Code(s): E78.5 - HYPERLIPIDEMIA, UNSPECIFIED Status: Chronic (6) GERD (gastroesophageal reflux disease) Code(s): K21.9 - GASTRO-ESOPHAGEAL REFLUX DISEASE WITHOUT ESOPHAGITIS Status: Chronic Qualifiers: Esophagitis presence: esophagitis presence not specified Qualified Code(s) : K21.9 - Gastro-esophageal reflux disease without esophagitis Comment: cont PPI (7) HTN (hypertension) Code(s): I10 - ESSENTIAL (PRIMARY) HYPERTENSION Status: Chronic Qualifiers: (8) Hypothyroidism Code(s): E03.9 - HYPOTHYROIDISM, UNSPECIFIED Status: Chronic Qualifiers: Comment: cont levothyroxine (9) Microcytic anemia Code(s): D50.9 - IRON DEFICIENCY ANEMIA, UNSPECIFIED Status: Chronic (10) Obesity (BMI 30-39.9) Code(s): E66.9 - OBESITY, UNSPECIFIED Status: Chronic - Plan continue antibiotics, PT/OT, respiratory therapy, incentive spirometry, out of bed/ambulate, DVT proph w/SCDs add OT/PT. may need HH Vs Rehab -: Cont care as outlined above -: Appreciate [facility] recs -: am labs * . Review of Systems - Review of Systems Constitutional: weakness, malaise. negative: fever, chills, sweats, other ENT: negative: Ear Pain, Ear Discharge, Nose Pain, Nose Discharge, Nose Congestion, Mouth Pain, Mouth Swelling, Throat Pain, Throat Swelling, Other Respiratory: SOB with Excertion. negative: Cough, Dry, Shortness of Breath, Hemoptysis, Pleuritic Pain, Sputum, Wheezing Cardiovascular: negative: chest pain, palpitations, orthopnea, paroxysmal nocturnal dyspnea, edema, light headedness, other Gastrointestinal: Nausea. negative: Vomiting, Abdominal Pain, Diarrhea, Constipation, Melena, Hematochezia, Other Genitourinary: negative: Dysuria, Frequency, Incontinence, Hematuria, Retention , Other Musculoskeletal: negative: Neck Pain, Shoulder Pain, Arm Pain, Back Pain, Hand Pain, Leg Pain, Foot Pain, Other Neurological: negative: Weakness, Numbness, Incoordination, Change in Speech, Confusion, Seizures, Other - Medications/Allergies Allergies/Adverse Reactions: Allergies Allergy/AdvReac Type Severity Reaction Status Date / Time No Known Allergies Allergy Verified 12/21/18 22:16 Medications: Current Medications Acetaminophen (Tylenol) 650 mg PO Q4H PRN PRN Reason: Headache/Fever/Mild Pain (1-3) Last Admin: 12/22/18 13:50 Dose: 650 mg Albuterol/Ipratropium (Duoneb) 3 ml EZPAP [id number] [facility] Last Admin: 12/23/18 12:39 Dose: 3 ml Aspirin (Ecotrin) 81 mg PO DAILY [facility] Last Admin: 12/23/18 08:12 Dose: 81 mg Atorvastatin Calcium (Lipitor) 20 mg PO DAILY [facility] Last Admin: 12/23/18 08:12 Dose: 20 mg Azithromycin (Zithromax) 250 mg PO 1800 [facility] Stop: 12/25/18 18:01 Last Admin: 12/22/18 18:10 Dose: 250 mg Bisacodyl (Dulcolax) 10 mg PO DAILYPRN PRN PRN Reason: Constipation Cholecalciferol (Vitamin D3) 2,000 units PO DAILY [facility] Last Admin: 12/23/18 08:12 Dose: 2,000 units Citalopram Hydrobromide (Celexa) 10 mg PO DAILY [facility] Last Admin: 12/23/18 08:12 Dose: 10 mg Dextrose/Water (Dextrose 50%) 25 gm SLOW IVP PRN PRN PRN Reason: Hypoglycemia Enoxaparin Sodium (Lovenox) 40 mg SC 0900 [facility] Last Admin: 12/23/18 08:13 Dose: 40 mg Ferrous Sulfate (Feosol) 325 mg PO DAILY [facility] Last Admin: 12/23/18 08:12 Dose: 325 mg Glucagon (Glucagon) 1 mg IM PRN PRN PRN Reason: Hypoglycemia Piperacillin Sod/Tazobactam (Sod 4.5 gm/ Sodium Chloride) 100 mls @ 200 mls/hr IVPB Q8HR [facility] Last Admin: 12/23/18 14:38 Dose: 100 mls Dextrose/Water (D5w) 1,000 mls @ 0 mls/hr IV .Q0M PRN PRN Reason: Hypoglycemia Vancomycin HCl 750 mg/ Sodium (Chloride) 250 mls @ 200 mls/hr IVPB 0900 [facility] Last Admin: 12/23/18 09:51 Dose: 250 mls Insulin Human Lispro (Humalog) 0 units SC .MILD SLIDING SCALE PRN PRN Reason: Mild Correctional Scale Last Admin: 12/23/18 11:46 Dose: 3 unit Levothyroxine Sodium (Synthroid) 25 mcg PO 0600 [facility] Last Admin: 12/23/18 05:39 Dose: 25 mcg Loratadine (Claritin) 10 mg PO DAILY [facility] Last Admin: 12/23/18 08:12 Dose: 10 mg Metformin HCl (Glucophage) 500 mg PO BID-[facility] Last Admin: 12/23/18 08:12 Dose: 500 mg Methylprednisolone Sodium Succinate (Solu-Medrol) 20 mg IVP Q8HR [facility] Last Admin: 12/23/18 14:38 Dose: 20 mg Miscellaneous Medication (Pharmacy To Dose) 1 each IVPB PRN PRN PRN Reason: Pharmacy to dose Mometasone Furoate (Asmanex) 2 puff INH 1800 [facility] Last Admin: 12/22/18 18:52 Dose: 2 puff Montelukast Sodium (Singulair) 10 mg PO DAILY [facility] Last Admin: 12/23/18 08:13 Dose: 10 mg Non-Formulary Medication (Beclomethasone Dipropionate [Qvar]) 8.7 gm IH BID [facility] Pantoprazole Sodium (Protonix) 40 mg PO DAILY [facility] Last Admin: 12/23/18 08:13 Dose: 40 mg Sterile Water (Bacteriostatic Water) 1 ml FS PRN PRN PRN Reason: RECONSTITUTION
[2018-12-23] MEDS: Azithromycin 250 MG TAB PO SCH (17:18)
[2018-12-23] MEDS: Mometasone Furoate 30 PUFF 220 MCG INH SCH (18:09)
[2018-12-24] MEDS: Piperacillin/Tazobactam 4.5 GM in Sodium Chloride 0.9% 100 ML IVPB SCH ×3 (05:26→22:41)
[2018-12-24] MEDS: Levothyroxine Sodium 25 MCG TAB PO SCH (05:27)
[2018-12-24] MEDS: methylPREDNISolone Sod Succ 40 MG VIAL IVP SCH (05:27)
[2018-12-24 06:02] LABS: #Lymphocytes 1.6 thou/uL (1.20-3.40); #Monocytes 0.4 thou/uL (0.11-0.59); #Neutrophils 10.4 thou/uL (1.40-6.50); %Basophils 0.1 % (0.0-1.0); %Eosinophils 0.1 % (0.0-10.0); %Lymphocytes 12.8 % (21.0-51.0); %Monocytes 3.4 % (0.0-10.0); %Neutrophils 83.6 % (42.0-75.0); Hemoglobin 11.9 g/dL (12.0-16.0); Mean Corpuscular HGB CONC 32.6 g/dL (32.0-36.0); Mean Corpuscular Hemoglobin 27.3 pg (27.0-31.0); Mean Corpuscular Volume 83.7 fL (78.0-98.0); Mean Platelet Volume 7.8 fL (7.4-10.4); Platelet Count 306 thou/uL (130-400); RBC Distribution Width 15.9 % (11.5-14.5); Red Blood Cell (RBC) Count 4.35 mill/uL (4.20-5.40); White Blood Cell (WBC) Count 12.4 thou/uL (4.8-10.8)
[2018-12-24 06:24] LABS: Anion Gap 13 mmol/L (10-20); BUN (Urea Nitrogen) 24 mg/dL (9.8-20.1); Calc. Creatinine Clearance 69 mL/min (70-130); Calcium 9.4 mg/dL (7.8-10.44); Carbon Dioxide 21 mmol/L (23-31); Chloride 111 mmol/L (98-107); Estimated GFR-MDRD 68; Glucose 129 mg/dL (83-110); Potassium 4.1 mmol/L (3.5-5.1); Sodium 141 mmol/L (136-145)
[2018-12-24] MEDS: Aspirin 81 mg Enteric Coated Tablet PO SCH (07:29)
[2018-12-24] MEDS: Atorvastatin Calcium 20 MG TAB PO SCH (07:29)
[2018-12-24] MEDS: Citalopram 10 MG TAB PO SCH (07:29)
[2018-12-24] MEDS: Ferrous Sulfate 325 MG TAB PO SCH (07:29)
[2018-12-24] MEDS: metFORMIN 500 MG TAB PO SCH ×2 (07:29→17:39)
[2018-12-24] MEDS: Enoxaparin Sodium 40 MG/0.4 ML SYRINGE SC SCH (07:30)
[2018-12-24] MEDS: Loratadine 10 MG TAB PO SCH (07:30)
[2018-12-24] MEDS: Montelukast Sodium 10 mg Tablet PO SCH (07:30)
[2018-12-24] MEDS ORDERED: Vancomycin HCl 1 GM in Premix Bag 1 BAG IVPB SCH (09:00)
[2018-12-24 09:39] LABS: Vancomycin, Trough 8.3 ug/mL
[2018-12-24] MEDS: Vancomycin HCl 750 MG in Sodium Chloride 0.9% 250 ML 250 ML IVPB SCH ×3 (10:05→20:18)
[2018-12-24] MEDS ORDERED: predniSONE 20 MG TAB PO SCH (10:15)
--- NOTE | 2018-12-24 10:22 | PRG ---
DATE OF SERVICE: 12/24/2018 SERVICE: Pulmonary Medicine. INTERVAL HISTORY: The patient has gotten approved for CPAP device. She indicates that her breathing is a little bit better, though she did have several coughing fits in the middle of the night preventing her from getting consolidated rest. All being told, she has a little less dyspnea than prior. PHYSICAL EXAMINATION: VITAL SIGNS: Afebrile, pulse 81, blood pressure 122/77, respirations 18, saturation 92% on 4 L nasal cannula. GENERAL: The patient is awake and alert, in no apparent distress. LUNGS: Decent air entry. There are much less rhonchi today. There is no prolonged expiratory phase. I do not hear any wheezing or crackles present. HEART: Normal rate, regular. ABDOMEN: Soft, nontender, and nondistended. Bowel sounds are positive. MUSCULOSKELETAL: No cyanosis or clubbing. There is no pitting in the bilateral lower extremities. NEUROLOGIC: Grossly nonfocal. LABORATORY DATA: WBC 12.4, hemoglobin 11.9, platelets 306,000. Neutrophil count is settling down. Lymphocytes and monocytes are rebounding. Creatinine 0.82, bicarb 21. Basic metabolic profile is otherwise unremarkable. Blood cultures x2 and influenza A and B are negative to date. ASSESSMENT: 1. Acute hypoxic respiratory failure, improving. 2. Community-acquired pneumonia. 3. Bronchiectasis with acute exacerbation. 4. Asthma with acute exacerbation. 5. Obstructive sleep apnea, finally approved for CPAP therapy. 6. Gastroesophageal reflux disease, horrendous. DISCUSSION AND PLAN: The patient is improving from a respiratory standpoint. We are going to work to set her up with CPAP in the outpatient setting. She will need an additional day in the hospital to see if she can come back off her oxygen. On discharge from the hospital, she will resume all of her home inhalers and continue steroid and antibiotics. At this point, her antibiotics can be limited to a total duration of 7 days. She seems to be clearing her inflammatory profile. If by tomorrow, she is better, we can convert her over to p.o. medications. I will add some physiotherapy to her regimen to see if we can liberate some of this mucus. Job ID: [id number]
--- NOTE | 2018-12-24 14:38 | PDOC.PN ---
- Subjective Encounter Start Date: 12/24/18 Encounter Start Time: 14:37 Subjective: feels poorly w cough and SOB w exertion.no CP/fever/chills - Objective Resuscitation Status - Order Detail: 12/21/18 22:30 Resuscitation Status Routine Resuscitation Status: FULL: Full Resuscitation Discussed with: jacquelyn LEON Reviewed: Yes Vital Signs & Weight: Vital Signs (12 hours) Temp Pulse Resp BP Pulse Ox 12/24/18 12:08 81 18 94 L 12/24/18 11:55 97.7 F 92 18 133/91 H 91 L 12/24/18 08:46 92 L 12/24/18 07:18 98.1 F 81 18 123/77 90 L 12/24/18 06:49 78 16 95 12/24/18 04:00 97.6 F 80 20 132/84 96 Weight Weight 160 lb 12.8 oz I&O: 12/23/18 12/24/18 12/25/18 06:59 06:59 06:59 Intake Total 240 1430 Output Total 380 Balance 240 1050 Result Diagrams: 12/24/18 05:50 12/24/18 05:50 Additional Labs: Accuchecks 12/24/18 12/24/18 12/23/18 11:51 05:35 20:15 POC Glucose 111 H 147 H 166 H 12/23/18 16:34 POC Glucose 105 Microbiology 12/21/18 17:59 Nasal swab Influenza Types A,B Direct EIA - Final 12/21/18 19:40 Venous blood - Right Arm Blood Culture - Preliminary NO GROWTH AT 48 HOURS 12/21/18 19:40 Venous blood - Left Arm Blood Culture - Preliminary NO GROWTH AT 48 HOURS Phys Exam - Physical Examination Constitutional: NAD looks tired HEENT: PERRLA, moist MMs, sclera anicteric, oral pharynx no lesions Neck: no nodes, no JVD, supple, full ROM Respiratory: no wheezing, no rales, no rhonchi, clear to auscultation bilateral better air entry than yesterday Cardiovascular: RRR, no significant murmur Gastrointestinal: soft, non-tender, no distention, positive bowel sounds Musculoskeletal: no edema, pulses present Neurological: non-focal, normal sensation, moves all 4 limbs Psychiatric: normal affect, A&O x 3 Skin: no rash Dx/Plan (1) Acute respiratory failure with hypoxia Code(s): J96.01 - ACUTE RESPIRATORY FAILURE WITH HYPOXIA Status: Acute Comment: on Home o2.improving. multifactorial.supportive care.ABx, steroids, nebs etc (2) Bronchiectasis with (acute) exacerbation Status: Acute Comment: cont solumedrol.Qvar,Asmanex,nebs (3) Community acquired bacterial pneumonia Code(s): J15.9 - UNSPECIFIED BACTERIAL PNEUMONIA Status: Acute Comment: on Vanco+zosyn+PO Azithromycin. Taper if Cx remain negative (4) DM2 (diabetes mellitus, type 2) Status: Chronic Qualifiers: Diabetes mellitus half-way insulin use: without half-way use Diabetes mellitus complication status: with unspecified complications Qualified Code(s) : E11.8 - Type 2 diabetes mellitus with unspecified complications Comment: On metfromin and ISS .Accuchecks achs (5) Dyslipidemia Code(s): E78.5 - HYPERLIPIDEMIA, UNSPECIFIED Status: Chronic (6) GERD (gastroesophageal reflux disease) Code(s): K21.9 - GASTRO-ESOPHAGEAL REFLUX DISEASE WITHOUT ESOPHAGITIS Status: Chronic Qualifiers: Esophagitis presence: esophagitis presence not specified Qualified Code(s) : K21.9 - Gastro-esophageal reflux disease without esophagitis Comment: cont PPI (7) HTN (hypertension) Code(s): I10 - ESSENTIAL (PRIMARY) HYPERTENSION Status: Chronic Qualifiers: (8) Hypothyroidism Code(s): E03.9 - HYPOTHYROIDISM, UNSPECIFIED Status: Chronic Qualifiers: Comment: cont levothyroxine (9) Microcytic anemia Code(s): D50.9 - IRON DEFICIENCY ANEMIA, UNSPECIFIED Status: Chronic (10) Obesity (BMI 30-39.9) Code(s): E66.9 - OBESITY, UNSPECIFIED Status: Chronic - Plan continue antibiotics, PT/OT, respiratory therapy, incentive spirometry, out of bed/ambulate, DVT proph w/SCDs clinically better. cont nebs, Steroids,Empiric ABx -: Appreciate PCCM input -: CPAP for home. -: cont PPI and other home meds as above. -: am labs.ekta WHITE in next 24-48 hours * . Review of Systems - Review of Systems Constitutional: weakness, malaise. negative: fever, chills, sweats, other ENT: negative: Ear Pain, Ear Discharge, Nose Pain, Nose Discharge, Nose Congestion, Mouth Pain, Mouth Swelling, Throat Pain, Throat Swelling, Other Respiratory: Cough, Shortness of Breath, SOB with Excertion, Sputum, Wheezing Cardiovascular: negative: chest pain, palpitations, orthopnea, paroxysmal nocturnal dyspnea, edema, light headedness, other Gastrointestinal: Nausea. negative: Vomiting, Abdominal Pain, Diarrhea, Constipation, Melena, Hematochezia, Other Genitourinary: negative: Dysuria, Frequency, Incontinence, Hematuria, Retention , Other Musculoskeletal: negative: Neck Pain, Shoulder Pain, Arm Pain, Back Pain, Hand Pain, Leg Pain, Foot Pain, Other Skin: negative: Rash, Lesions, David, Bruising, Other Neurological: negative: Weakness, Numbness, Incoordination, Change in Speech, Confusion, Seizures, Other - Medications/Allergies Allergies/Adverse Reactions: Allergies Allergy/AdvReac Type Severity Reaction Status Date / Time No Known Allergies Allergy Verified 12/21/18 22:16 Medications: Current Medications Acetaminophen (Tylenol) 650 mg PO Q4H PRN PRN Reason: Headache/Fever/Mild Pain (1-3) Last Admin: 12/22/18 13:50 Dose: 650 mg Albuterol/Ipratropium (Duoneb) 3 ml EZPAP [id number] [facility] Last Admin: 12/24/18 12:08 Dose: 3 ml Aspirin (Ecotrin) 81 mg PO DAILY [facility] Last Admin: 12/24/18 07:29 Dose: 81 mg Atorvastatin Calcium (Lipitor) 20 mg PO DAILY [facility] Last Admin: 12/24/18 07:29 Dose: 20 mg Azithromycin (Zithromax) 250 mg PO 1800 [facility] Stop: 12/25/18 18:01 Last Admin: 12/23/18 17:18 Dose: 250 mg Bisacodyl (Dulcolax) 10 mg PO DAILYPRN PRN PRN Reason: Constipation Cholecalciferol (Vitamin D3) 2,000 units PO DAILY [facility] Last Admin: 12/24/18 07:29 Dose: 2,000 units Citalopram Hydrobromide (Celexa) 10 mg PO DAILY [facility] Last Admin: 12/24/18 07:29 Dose: 10 mg Dextrose/Water (Dextrose 50%) 25 gm SLOW IVP PRN PRN PRN Reason: Hypoglycemia Enoxaparin Sodium (Lovenox) 40 mg SC 0900 [facility] Last Admin: 12/24/18 07:30 Dose: 40 mg Ferrous Sulfate (Feosol) 325 mg PO DAILY [facility] Last Admin: 12/24/18 07:29 Dose: 325 mg Glucagon (Glucagon) 1 mg IM PRN PRN PRN Reason: Hypoglycemia Piperacillin Sod/Tazobactam (Sod 4.5 gm/ Sodium Chloride) 100 mls @ 200 mls/hr IVPB Q8HR [facility] Last Admin: 12/24/18 14:31 Dose: 100 mls Dextrose/Water (D5w) 1,000 mls @ 0 mls/hr IV .Q0M PRN PRN Reason: Hypoglycemia Vancomycin HCl 750 mg/ Sodium (Chloride) 250 mls @ 200 mls/hr IVPB Q12HR [facility] Last Admin: 12/24/18 10:09 Dose: 250 mls Insulin Human Lispro (Humalog) 0 units SC .MILD SLIDING SCALE PRN PRN Reason: Mild Correctional Scale Last Admin: 12/23/18 11:46 Dose: 3 unit Levothyroxine Sodium (Synthroid) 25 mcg PO 0600 [facility] Last Admin: 12/24/18 05:27 Dose: 25 mcg Loratadine (Claritin) 10 mg PO DAILY [facility] Last Admin: 12/24/18 07:30 Dose: 10 mg Metformin HCl (Glucophage) 500 mg PO BID[facility] Last Admin: 12/24/18 07:29 Dose: 500 mg Miscellaneous Medication (Pharmacy To Dose) 1 each IVPB PRN PRN PRN Reason: Pharmacy to dose Montelukast Sodium (Singulair) 10 mg PO DAILY [facility] Last Admin: 12/24/18 07:30 Dose: 10 mg Pantoprazole Sodium (Protonix) 40 mg PO DAILY [facility] Last Admin: 12/24/18 07:30 Dose: 40 mg Prednisone (Prednisone) 40 mg PO QAM[facility] Sterile Water (Bacteriostatic Water) 1 ml FS PRN PRN PRN Reason: RECONSTITUTION
[2018-12-24] MEDS: Azithromycin 250 MG TAB PO SCH (17:39)
[2018-12-25] MEDS: Levothyroxine Sodium 25 MCG TAB PO SCH (05:20)
[2018-12-25] MEDS: Piperacillin/Tazobactam 4.5 GM in Sodium Chloride 0.9% 100 ML IVPB SCH ×3 (05:57→23:08)
[2018-12-25 07:23] LABS: #Lymphocytes 2.5 thou/uL (1.20-3.40); #Monocytes 0.6 thou/uL (0.11-0.59); #Neutrophils 6.8 thou/uL (1.40-6.50); %Basophils 0.2 % (0.0-1.0); %Eosinophils 0.3 % (0.0-10.0); %Lymphocytes 24.8 % (21.0-51.0); %Neutrophils 68.7 % (42.0-75.0); Hemoglobin 11.7 g/dL (12.0-16.0); Mean Corpuscular HGB CONC 32.1 g/dL (32.0-36.0); Mean Corpuscular Volume 84.1 fL (78.0-98.0); Mean Platelet Volume 8.1 fL (7.4-10.4); Platelet Count 281 thou/uL (130-400); Red Blood Cell (RBC) Count 4.34 mill/uL (4.20-5.40); White Blood Cell (WBC) Count 9.9 thou/uL (4.8-10.8)
[2018-12-25 07:42] LABS: Anion Gap 13 mmol/L (10-20); BUN (Urea Nitrogen) 25 mg/dL (9.8-20.1); Calc. Creatinine Clearance 69 mL/min (70-130); Calcium 9.3 mg/dL (7.8-10.44); Carbon Dioxide 18 mmol/L (23-31); Chloride 113 mmol/L (98-107); Estimated GFR-MDRD 68; Glucose 88 mg/dL (83-110); Sodium 140 mmol/L (136-145)
[2018-12-25] MEDS: predniSONE 20 MG TAB PO SCH (08:12)
[2018-12-25] MEDS: Citalopram 10 MG TAB PO SCH (08:13)
[2018-12-25] MEDS: Ferrous Sulfate 325 MG TAB PO SCH (08:13)
[2018-12-25] MEDS: Aspirin 81 mg Enteric Coated Tablet PO SCH (08:13)
[2018-12-25] MEDS: metFORMIN 500 MG TAB PO SCH ×2 (08:13→17:28)
[2018-12-25] MEDS: Enoxaparin Sodium 40 MG/0.4 ML SYRINGE SC SCH (08:13)
[2018-12-25] MEDS: Montelukast Sodium 10 mg Tablet PO SCH (08:13)
[2018-12-25] MEDS: Loratadine 10 MG TAB PO SCH (08:13)
[2018-12-25] MEDS: Atorvastatin Calcium 20 MG TAB PO SCH (08:13)
[2018-12-25] MEDS: Vancomycin HCl 750 MG in Sodium Chloride 0.9% 250 ML 250 ML IVPB SCH ×2 (09:50→20:59)
--- NOTE | 2018-12-25 11:17 | PRG ---
DATE OF SERVICE: 12/25/2018 SERVICE: Pulmonary Medicine. INTERVAL HISTORY: The patient is doing really well from respiratory standpoint. With physiotherapy, she has been able to cough up copious amounts of yellow phlegm. Last night, she got very good sleep. She denies any current fevers, chills, cough, sputum production, nausea, or vomiting. PHYSICAL EXAMINATION: VITAL SIGNS: Afebrile. Pulse 82, blood pressure 130/82, respirations 20, saturation 91% on 2 L nasal cannula. GENERAL: The patient is awake and alert, in no apparent distress. LUNGS: Good air entry. Rhonchi are present. There is not really prolonged expiratory phase. No wheezing or crackles are appreciated. HEART: Normal rate, regular. ABDOMEN: Soft, nontender, and nondistended. Bowel sounds are positive. MUSCULOSKELETAL: No cyanosis or clubbing. No pitting in the bilateral lower extremities. NEUROLOGIC: Grossly nonfocal. LABORATORY DATA: WBC 9.9, hemoglobin 11.7, platelets 281,000. Chloride 113. Basic metabolic profile is otherwise unremarkable/stable. Creatinine 0.82 and stable. Vancomycin was 8.3. ASSESSMENT: 1. Acute hypoxic respiratory failure, improving. 2. Community-acquired pneumonia. 3. Bronchiectasis with acute exacerbation. 4. Asthma with acute exacerbation. 5. Obstructive sleep apnea, finally approved for CPAP therapy. 6. Gastroesophageal reflux disease, severe. DISCUSSION AND PLAN: We will continue our physiotherapy, elevate head of bed, and avoid p.o. within 2 hours going to bed. I will continue the nebulized medications, steroids, and antibiotics. Antibiotics can be converted over to an oral medication today. She will need a total duration of 14 days. Since she is bringing up significant amounts of sputum, I will go ahead and do a Gram stain and culture. If she is doing well into tomorrow and is off oxygen, she can be considered for transition home. She will need to get set up with her CPAP in that setting. We will also resume her home medications for asthma on discharge including Arnuity, Singulair, Spiriva (does not tolerate a long-acting beta agonists secondary to tremor/anxiety). We will continue making efforts at setting up a biologic medication directed at her atopy in the outpatient setting. Job ID: [id number] [facility]
--- NOTE | 2018-12-25 14:04 | PDOC.PN ---
- Subjective Encounter Start Date: 12/25/18 Encounter Start Time: 13:56 Subjective: feels better but still very weak -: coughing - Objective Resuscitation Status - Order Detail: 12/21/18 22:30 Resuscitation Status Routine Resuscitation Status: FULL: Full Resuscitation Discussed with: jacquelyn LEON Reviewed: Yes Vital Signs & Weight: Vital Signs (12 hours) Temp Pulse Resp BP Pulse Ox 12/25/18 13:17 117 H 24 H 91 L 12/25/18 07:39 98.0 F 82 20 130/82 91 L 12/25/18 07:15 84 18 92 L 12/25/18 06:30 93 20 93 L 12/25/18 04:00 98.3 F 82 20 130/82 94 L Weight Weight 160 lb 12.8 oz I&O: 12/24/18 12/25/18 12/26/18 06:59 06:59 06:59 Intake Total 1430 2180 Output Total 380 Balance 1050 2180 Result Diagrams: 12/25/18 06:38 12/25/18 06:38 Additional Labs: Accuchecks 12/25/18 12/25/18 12/24/18 11:30 05:22 19:22 POC Glucose 107 102 173 H 12/24/18 16:58 POC Glucose 160 H Phys Exam - Physical Examination Constitutional: NAD HEENT: PERRLA, moist MMs, sclera anicteric, oral pharynx no lesions Neck: no nodes, no JVD, supple, full ROM Respiratory: no wheezing, no rales, no rhonchi, clear to auscultation bilateral Cardiovascular: RRR, no significant murmur Gastrointestinal: soft, non-tender, no distention, positive bowel sounds Musculoskeletal: no edema, pulses present Neurological: non-focal, normal sensation, moves all 4 limbs Psychiatric: normal affect, A&O x 3 Skin: no rash Dx/Plan (1) Acute respiratory failure with hypoxia Code(s): J96.01 - ACUTE RESPIRATORY FAILURE WITH HYPOXIA Status: Acute Comment: Not on Home o2.improving. multifactorial.supportive care.ABx, steroids, nebs etc (2) Bronchiectasis with (acute) exacerbation Status: Acute Comment: cont solumedrol.Qvar,Asmanex,nebs (3) Community acquired bacterial pneumonia Code(s): J15.9 - UNSPECIFIED BACTERIAL PNEUMONIA Status: Acute Comment: on Vanco+zosyn+PO Azithromycin. Taper if Cx remain negative (4) DM2 (diabetes mellitus, type 2) Status: Chronic Qualifiers: Diabetes mellitus correction insulin use: without terminal manager use Diabetes mellitus complication status: with unspecified complications Qualified Code(s) : E11.8 - Type 2 diabetes mellitus with unspecified complications Comment: On metfromin and ISS .Accuchecks achs (5) Dyslipidemia Code(s): E78.5 - HYPERLIPIDEMIA, UNSPECIFIED Status: Chronic (6) GERD (gastroesophageal reflux disease) Code(s): K21.9 - GASTRO-ESOPHAGEAL REFLUX DISEASE WITHOUT ESOPHAGITIS Status: Chronic Qualifiers: Esophagitis presence: esophagitis presence not specified Qualified Code(s) : K21.9 - Gastro-esophageal reflux disease without esophagitis Comment: cont PPI (7) HTN (hypertension) Code(s): I10 - ESSENTIAL (PRIMARY) HYPERTENSION Status: Chronic Qualifiers: (8) Hypothyroidism Code(s): E03.9 - HYPOTHYROIDISM, UNSPECIFIED Status: Chronic Qualifiers: Comment: cont levothyroxine (9) Microcytic anemia Code(s): D50.9 - IRON DEFICIENCY ANEMIA, UNSPECIFIED Status: Chronic (10) Obesity (BMI 30-39.9) Code(s): E66.9 - OBESITY, UNSPECIFIED Status: Chronic - Plan continue antibiotics, respiratory therapy, incentive spirometry, out of bed/ ambulate, DVT proph w/SCDs cont chest physioRx,Acapella,Nebs ,steroids.empiric ABx -: ekta will need another 24-48 hrs before ready for DC -: Appreciate [facility] input * . Review of Systems - Review of Systems Constitutional: weakness, malaise. negative: fever, chills, sweats, other ENT: negative: Ear Pain, Ear Discharge, Nose Pain, Nose Discharge, Nose Congestion, Mouth Pain, Mouth Swelling, Throat Pain, Throat Swelling, Other Respiratory: Cough, SOB with Excertion. negative: Dry, Shortness of Breath, Hemoptysis, Pleuritic Pain, Sputum, Wheezing Cardiovascular: negative: chest pain, palpitations, orthopnea, paroxysmal nocturnal dyspnea, edema, light headedness, other Gastrointestinal: Nausea. negative: Vomiting, Abdominal Pain, Diarrhea, Constipation, Melena, Hematochezia, Other Genitourinary: negative: Dysuria, Frequency, Incontinence, Hematuria, Retention , Other Musculoskeletal: negative: Neck Pain, Shoulder Pain, Arm Pain, Back Pain, Hand Pain, Leg Pain, Foot Pain, Other Skin: negative: Rash, Lesions, David, Bruising, Other Neurological: negative: Weakness, Numbness, Incoordination, Change in Speech, Confusion, Seizures, Other - Medications/Allergies Allergies/Adverse Reactions: Allergies Allergy/AdvReac Type Severity Reaction Status Date / Time No Known Allergies Allergy Verified 12/21/18 22:16 Medications: Current Medications Acetaminophen (Tylenol) 650 mg PO Q4H PRN PRN Reason: Headache/Fever/Mild Pain (1-3) Last Admin: 12/22/18 13:50 Dose: 650 mg Albuterol/Ipratropium (Duoneb) 3 ml EZPAP [id number] [facility] Last Admin: 12/25/18 13:17 Dose: 3 ml Aspirin (Ecotrin) 81 mg PO DAILY [facility] Last Admin: 12/25/18 08:13 Dose: 81 mg Atorvastatin Calcium (Lipitor) 20 mg PO DAILY [facility] Last Admin: 12/25/18 08:13 Dose: 20 mg Azithromycin (Zithromax) 250 mg PO 1800 [facility] Stop: 12/25/18 18:01 Last Admin: 12/24/18 17:39 Dose: 250 mg Bisacodyl (Dulcolax) 10 mg PO DAILYPRN PRN PRN Reason: Constipation Cholecalciferol (Vitamin D3) 2,000 units PO DAILY [facility] Last Admin: 12/25/18 08:12 Dose: 2,000 units Citalopram Hydrobromide (Celexa) 10 mg PO DAILY [facility] Last Admin: 12/25/18 08:13 Dose: 10 mg Dextrose/Water (Dextrose 50%) 25 gm SLOW IVP PRN PRN PRN Reason: Hypoglycemia Enoxaparin Sodium (Lovenox) 40 mg SC 0900 [facility] Last Admin: 12/25/18 08:13 Dose: 40 mg Ferrous Sulfate (Feosol) 325 mg PO DAILY [facility] Last Admin: 12/25/18 08:13 Dose: 325 mg Glucagon (Glucagon) 1 mg IM PRN PRN PRN Reason: Hypoglycemia Piperacillin Sod/Tazobactam (Sod 4.5 gm/ Sodium Chloride) 100 mls @ 200 mls/hr IVPB Q8HR [facility] Last Admin: 12/25/18 13:59 Dose: 100 mls Dextrose/Water (D5w) 1,000 mls @ 0 mls/hr IV .Q0M PRN PRN Reason: Hypoglycemia Vancomycin HCl 750 mg/ Sodium (Chloride) 250 mls @ 200 mls/hr IVPB Q12HR [facility] Last Admin: 12/25/18 09:50 Dose: 250 mls Insulin Human Lispro (Humalog) 0 units SC .MILD SLIDING SCALE PRN PRN Reason: Mild Correctional Scale Last Admin: 12/23/18 11:46 Dose: 3 unit Levothyroxine Sodium (Synthroid) 25 mcg PO 0600 [facility] Last Admin: 12/25/18 05:20 Dose: 25 mcg Loratadine (Claritin) 10 mg PO DAILY [facility] Last Admin: 12/25/18 08:13 Dose: 10 mg Metformin HCl (Glucophage) 500 mg PO BID-[facility] Last Admin: 12/25/18 08:13 Dose: 500 mg Miscellaneous Medication (Pharmacy To Dose) 1 each IVPB PRN PRN PRN Reason: Pharmacy to dose Montelukast Sodium (Singulair) 10 mg PO DAILY [facility] Last Admin: 12/25/18 08:13 Dose: 10 mg Pantoprazole Sodium (Protonix) 40 mg PO DAILY [facility] Last Admin: 12/25/18 08:13 Dose: 40 mg Prednisone (Prednisone) 40 mg PO QAM-[facility] Last Admin: 12/25/18 08:12 Dose: 40 mg Sterile Water (Bacteriostatic Water) 1 ml FS PRN PRN PRN Reason: RECONSTITUTION
[2018-12-25] MEDS: Azithromycin 250 MG TAB PO SCH (17:28)
[2018-12-25 20:27] LABS: Reflex for Review? - EOS YES
[2018-12-25 20:46] LABS: Vancomycin, Trough 17.7 ug/mL
[2018-12-26] MEDS: Levothyroxine Sodium 25 MCG TAB PO SCH (05:35)
[2018-12-26] MEDS: Acetaminophen 325 MG TAB PO PRN (05:35)
[2018-12-26] MEDS: Piperacillin/Tazobactam 4.5 GM in Sodium Chloride 0.9% 100 ML IVPB SCH ×2 (05:37→15:15)
[2018-12-26 07:04] LABS: #Basophils 0.1 thou/uL (0.0-0.2); #Eosinphils 0.2 thou/uL (0.0-0.7); #Monocytes 0.6 thou/uL (0.11-0.59); #Neutrophils 5.6 thou/uL (1.40-6.50); %Basophils 0.7 % (0.0-1.0); %Eosinophils 1.6 % (0.0-10.0); %Lymphocytes 31.7 % (21.0-51.0); %Monocytes 6.1 % (0.0-10.0); %Neutrophils 59.8 % (42.0-75.0); Hemoglobin 11.3 g/dL (12.0-16.0); Mean Corpuscular HGB CONC 33.4 g/dL (32.0-36.0); Mean Corpuscular Hemoglobin 27.7 pg (27.0-31.0); Mean Corpuscular Volume 83.1 fL (78.0-98.0); Mean Platelet Volume 7.6 fL (7.4-10.4); Platelet Count 246 thou/uL (130-400); RBC Distribution Width 15.7 % (11.5-14.5); Red Blood Cell (RBC) Count 4.07 mill/uL (4.20-5.40); White Blood Cell (WBC) Count 9.3 thou/uL (4.8-10.8)
[2018-12-26 07:13] LABS: Anion Gap 11 mmol/L (10-20); BUN (Urea Nitrogen) 30 mg/dL (9.8-20.1); Calc. Creatinine Clearance 57 mL/min (70-130); Calcium 8.9 mg/dL (7.8-10.44); Carbon Dioxide 19 mmol/L (23-31); Chloride 114 mmol/L (98-107); Estimated GFR-MDRD 54; Glucose 104 mg/dL (83-110); Potassium 3.4 mmol/L (3.5-5.1); Sodium 141 mmol/L (136-145)
[2018-12-26] MEDS: Ferrous Sulfate 325 MG TAB PO SCH (08:31)
[2018-12-26] MEDS: Atorvastatin Calcium 20 MG TAB PO SCH (08:31)
[2018-12-26] MEDS: Loratadine 10 MG TAB PO SCH (08:32)
[2018-12-26] MEDS: predniSONE 20 MG TAB PO SCH (08:32)
[2018-12-26] MEDS: Montelukast Sodium 10 mg Tablet PO SCH (08:32)
[2018-12-26] MEDS: Aspirin 81 mg Enteric Coated Tablet PO SCH (08:32)
[2018-12-26] MEDS: metFORMIN 500 MG TAB PO SCH ×2 (08:33→17:19)
[2018-12-26] MEDS: Vancomycin HCl 750 MG in Sodium Chloride 0.9% 250 ML 250 ML IVPB SCH (08:33)
[2018-12-26] MEDS: Citalopram 10 MG TAB PO SCH (08:33)
[2018-12-26] MEDS: Enoxaparin Sodium 40 MG/0.4 ML SYRINGE SC SCH (09:19)
--- NOTE | 2018-12-26 13:40 | PDOC.PN ---
- Subjective Encounter Start Date: 12/26/18 Encounter Start Time: 13:39 Subjective: no overnight events. -: still easily winded w exertion - Objective Resuscitation Status - Order Detail: 12/21/18 22:30 Resuscitation Status Routine Resuscitation Status: FULL: Full Resuscitation Discussed with: patient CAROLYN Reviewed: Yes Vital Signs & Weight: Vital Signs (12 hours) Temp Pulse Resp BP Pulse Ox 12/26/18 11:27 85 16 96 12/26/18 07:22 97.9 F 69 20 120/74 93 L 12/26/18 06:23 83 20 94 L 12/26/18 06:15 81 16 96 12/26/18 04:00 68 16 95 Weight Weight 160 lb 12.8 oz I&O: 12/25/18 12/26/18 12/27/18 06:59 06:59 06:59 Intake Total 2180 810 Balance 2180 810 Result Diagrams: 12/26/18 06:40 12/26/18 06:40 Additional Labs: Accuchecks 12/26/18 12/26/18 12/25/18 11:44 05:29 19:28 POC Glucose 107 91 115 H 12/25/18 16:30 POC Glucose 148 H Radiology Reviewed by me: Yes Phys Exam - Physical Examination Constitutional: NAD HEENT: PERRLA, moist MMs, sclera anicteric, oral pharynx no lesions Neck: no nodes, no JVD Respiratory: no wheezing, no rales, no rhonchi Cardiovascular: RRR, no significant murmur Gastrointestinal: soft, non-tender, no distention, positive bowel sounds Musculoskeletal: no edema, pulses present Neurological: non-focal, normal sensation, moves all 4 limbs Psychiatric: normal affect, A&O x 3 Skin: no rash Dx/Plan (1) Acute respiratory failure with hypoxia Code(s): J96.01 - ACUTE RESPIRATORY FAILURE WITH HYPOXIA Status: Acute Comment: Not on Home o2.improving. multifactorial.supportive care.ABx, steroids, nebs etc (2) Bronchiectasis with (acute) exacerbation Status: Acute Comment: cont solumedrol.Qvar,Asmanex,nebs (3) Community acquired bacterial pneumonia Code(s): J15.9 - UNSPECIFIED BACTERIAL PNEUMONIA Status: Acute Comment: on Vanco+zosyn+PO Azithromycin. Taper if Cx remain negative (4) DM2 (diabetes mellitus, type 2) Status: Chronic Qualifiers: Diabetes mellitus mcc insulin use: without terminal operations supervisor use Diabetes mellitus complication status: with unspecified complications Qualified Code(s) : E11.8 - Type 2 diabetes mellitus with unspecified complications Comment: On metfromin and ISS .Accuchecks achs (5) Dyslipidemia Code(s): E78.5 - HYPERLIPIDEMIA, UNSPECIFIED Status: Chronic (6) GERD (gastroesophageal reflux disease) Code(s): K21.9 - GASTRO-ESOPHAGEAL REFLUX DISEASE WITHOUT ESOPHAGITIS Status: Chronic Qualifiers: Esophagitis presence: esophagitis presence not specified Qualified Code(s) : K21.9 - Gastro-esophageal reflux disease without esophagitis Comment: cont PPI (7) HTN (hypertension) Code(s): I10 - ESSENTIAL (PRIMARY) HYPERTENSION Status: Chronic Qualifiers: (8) Hypothyroidism Code(s): E03.9 - HYPOTHYROIDISM, UNSPECIFIED Status: Chronic Qualifiers: Comment: cont levothyroxine (9) Microcytic anemia Code(s): D50.9 - IRON DEFICIENCY ANEMIA, UNSPECIFIED Status: Chronic (10) Obesity (BMI 30-39.9) Code(s): E66.9 - OBESITY, UNSPECIFIED Status: Chronic - Plan continue antibiotics, PT/OT, respiratory therapy, incentive spirometry, out of bed/ambulate, DVT proph w/SCDs all Cx negative so far -: cont ABx, steroids,nebs etc -: supportive care -: Dc when feels better -: may need home O2.will try weaning today * .
--- NOTE | 2018-12-26 14:23 | EKG ---
Test Reason : ER INDICATION Blood Pressure : / mmHG Vent. Rate : 088 BPM Atrial Rate : 088 BPM P-R Int : 124 ms QRS Dur : 068 ms QT Int : 390 ms P-R-T Axes : 011 -41 -17 degrees QTc Int : 471 ms Normal sinus rhythm Left axis deviation Nonspecific T wave abnormality Prolonged QT Abnormal ECG Confirmed by TABITHA LANG ([id number]), news videotape editor YUKI KUMAR ([id number]) on 12/26/2018 2:22:57 PM Referred By: Confirmed By:TABITHA LANG
--- NOTE | 2018-12-26 16:01 | PRG ---
DATE OF SERVICE: 12/26/2018 SUBJECTIVE: Ms. Bojorquez is very pleasant and cooperative. I think she is feeling better. Her daughter does not feel like she is ready to go home yet. OBJECTIVE: VITAL SIGNS: She is afebrile. Heart rate 69, respiratory rate is 20, and oximetry 93% to 96% on 2 L cannula. LUNGS: Remarkable for faint wheezes. HEART: Regular rhythm. ABDOMEN: Soft and nontender. EXTREMITIES: Without edema. LABORATORY DATA: White count 9.3, hemoglobin 11.3, platelets 246. Sodium 141, potassium 3.4, chloride 114, bicarb 19, BUN 30, and creatinine 1.0. IMPRESSION: 1. Acute hypoxic respiratory failure, improving. 2. Pneumonia, community acquired. 3. Bronchiectasis with reactive airways/asthma. 4. Sleep apnea. 5. Reflux disease and hiatal hernia. PLAN: Continue with physical therapy. Take her off her IV antimicrobial therapy and switch her to Augmentin. She is on prednisone. Vancomycin can probably be discontinued. No clinical indication when she has MRSA pneumonia. Job ID: [id number]
[2018-12-26] MEDS: Amoxicillin/Potassium Clav 875 MG TAB PO SCH (20:50)
[2018-12-27 04:27] LABS: #Eosinphils 0.2 thou/uL (0.0-0.7); #Lymphocytes 2.9 thou/uL (1.20-3.40); #Monocytes 0.5 thou/uL (0.11-0.59); #Neutrophils 5.6 thou/uL (1.40-6.50); %Basophils 0.4 % (0.0-1.0); %Eosinophils 1.7 % (0.0-10.0); %Lymphocytes 31.7 % (21.0-51.0); %Monocytes 5.6 % (0.0-10.0); %Neutrophils 60.5 % (42.0-75.0); Hemoglobin 11.3 g/dL (12.0-16.0); Mean Corpuscular HGB CONC 32.6 g/dL (32.0-36.0); Mean Corpuscular Hemoglobin 27.4 pg (27.0-31.0); Mean Corpuscular Volume 84.1 fL (78.0-98.0); Mean Platelet Volume 7.7 fL (7.4-10.4); Platelet Count 268 thou/uL (130-400); RBC Distribution Width 15.5 % (11.5-14.5); Red Blood Cell (RBC) Count 4.11 mill/uL (4.20-5.40); White Blood Cell (WBC) Count 9.2 thou/uL (4.8-10.8)
[2018-12-27 04:47] LABS: Anion Gap 12 mmol/L (10-20); BUN (Urea Nitrogen) 24 mg/dL (9.8-20.1); Calc. Creatinine Clearance 77 mL/min (70-130); Calcium 8.9 mg/dL (7.8-10.44); Carbon Dioxide 19 mmol/L (23-31); Chloride 115 mmol/L (98-107); Estimated GFR-MDRD 77; Glucose 82 mg/dL (83-110); Potassium 3.4 mmol/L (3.5-5.1); Sodium 143 mmol/L (136-145)
[2018-12-27] MEDS: Levothyroxine Sodium 25 MCG TAB PO SCH (06:19)
[2018-12-27 08:41] LABS: Vancomycin, Trough 8.7 ug/mL
[2018-12-27] MEDS: Montelukast Sodium 10 mg Tablet PO SCH (09:22)
[2018-12-27] MEDS: Citalopram 10 MG TAB PO SCH (09:22)
[2018-12-27] MEDS: Ferrous Sulfate 325 MG TAB PO SCH (09:22)
[2018-12-27] MEDS: predniSONE 20 MG TAB PO SCH (09:22)
[2018-12-27] MEDS: metFORMIN 500 MG TAB PO SCH ×2 (09:22→17:46)
[2018-12-27] MEDS: Amoxicillin/Potassium Clav 875 MG TAB PO SCH ×2 (09:23→20:25)
[2018-12-27] MEDS: Enoxaparin Sodium 40 MG/0.4 ML SYRINGE SC SCH (09:23)
[2018-12-27] MEDS: Atorvastatin Calcium 20 MG TAB PO SCH (09:23)
[2018-12-27] MEDS: Aspirin 81 mg Enteric Coated Tablet PO SCH (09:23)
[2018-12-27] MEDS: Loratadine 10 MG TAB PO SCH (09:23)
[2018-12-27] MEDS: Fluticasone Propionate Nasal Spray 16 gm Bottle NASAL SCH (12:26)
--- NOTE | 2018-12-27 14:04 | PDOC.PN ---
- Subjective Encounter Start Date: 12/27/18 Encounter Start Time: 14:02 Subjective: feels better but still not good.coughing up phlegm -: easily SOB w exertion - Objective Resuscitation Status - Order Detail: 12/21/18 22:30 Resuscitation Status Routine Resuscitation Status: FULL: Full Resuscitation Discussed with: jacquelyn LEON Reviewed: Yes Vital Signs & Weight: Vital Signs (12 hours) Temp Pulse Resp BP Pulse Ox 12/27/18 12:01 70 18 95 12/27/18 09:05 97.9 F 70 20 143/91 H 96 12/27/18 05:47 85 16 98 12/27/18 05:45 81 16 98 12/27/18 04:00 97.8 F 68 14 135/83 99 Weight Weight 160 lb 12.8 oz I&O: 12/26/18 12/27/18 12/28/18 06:59 06:59 06:59 Intake Total 810 560 Balance 810 560 Result Diagrams: 12/27/18 03:59 12/27/18 03:59 Additional Labs: Accuchecks 12/27/18 12/27/18 12/26/18 11:40 05:07 20:42 POC Glucose 105 88 152 H 12/26/18 16:32 POC Glucose 157 H Microbiology 12/21/18 19:40 Venous blood - Right Arm Blood Culture - Final NO GROWTH IN 5 DAYS 12/21/18 19:40 Venous blood - Left Arm Blood Culture - Final NO GROWTH IN 5 DAYS 12/21/18 17:59 Nasal swab Influenza Types A,B Direct EIA - Final 12/25/18 17:30 Sputum Respiratory Culture - Preliminary 12/25/18 17:30 Sputum Respiratory Culture - Preliminary 12/21/18 19:40 Venous blood - Right Arm Blood Culture - Preliminary NO GROWTH AT 48 HOURS 12/21/18 19:40 Venous blood - Left Arm Blood Culture - Preliminary NO GROWTH AT 48 HOURS Phys Exam - Physical Examination Constitutional: NAD HEENT: PERRLA, moist MMs, sclera anicteric, oral pharynx no lesions Neck: no nodes, no JVD, supple, full ROM Respiratory: no wheezing, no rales, no rhonchi, clear to auscultation bilateral reduced at Left lung views Cardiovascular: RRR, no significant murmur Gastrointestinal: soft, non-tender, no distention, positive bowel sounds Musculoskeletal: no edema, pulses present Neurological: non-focal, normal sensation, moves all 4 limbs Psychiatric: normal affect, A&O x 3 Skin: no rash Dx/Plan (1) Acute respiratory failure with hypoxia Code(s): J96.01 - ACUTE RESPIRATORY FAILURE WITH HYPOXIA Status: Acute Comment: Not on Home o2.improving. multifactorial.supportive care.ABx, steroids, nebs etc (2) Bronchiectasis with (acute) exacerbation Status: Acute Comment: cont solumedrol.Qvar,Asmanex,nebs (3) Community acquired bacterial pneumonia Code(s): J15.9 - UNSPECIFIED BACTERIAL PNEUMONIA Status: Acute Comment: on Vanco+zosyn+PO Azithromycin. Taper if Cx remain negative (4) DM2 (diabetes mellitus, type 2) Status: Chronic Qualifiers: Diabetes mellitus long-term insulin use: without long-term use Diabetes mellitus complication status: with unspecified complications Qualified Code(s) : E11.8 - Type 2 diabetes mellitus with unspecified complications Comment: On metfromin and ISS .Accuchecks achs (5) Dyslipidemia Code(s): E78.5 - HYPERLIPIDEMIA, UNSPECIFIED Status: Chronic (6) GERD (gastroesophageal reflux disease) Code(s): K21.9 - GASTRO-ESOPHAGEAL REFLUX DISEASE WITHOUT ESOPHAGITIS Status: Chronic Qualifiers: Esophagitis presence: esophagitis presence not specified Qualified Code(s) : K21.9 - Gastro-esophageal reflux disease without esophagitis Comment: cont PPI (7) HTN (hypertension) Code(s): I10 - ESSENTIAL (PRIMARY) HYPERTENSION Status: Chronic Qualifiers: (8) Hypothyroidism Code(s): E03.9 - HYPOTHYROIDISM, UNSPECIFIED Status: Chronic Qualifiers: Comment: cont levothyroxine (9) Microcytic anemia Code(s): D50.9 - IRON DEFICIENCY ANEMIA, UNSPECIFIED Status: Chronic (10) Obesity (BMI 30-39.9) Code(s): E66.9 - OBESITY, UNSPECIFIED Status: Chronic - Plan * . Review of Systems - Review of Systems Constitutional: weakness, malaise. negative: fever, chills, sweats, other ENT: negative: Ear Pain, Ear Discharge, Nose Pain, Nose Discharge, Nose Congestion, Mouth Pain, Mouth Swelling, Throat Pain, Throat Swelling, Other Respiratory: Cough, SOB with Excertion. negative: Dry, Shortness of Breath, Hemoptysis, Pleuritic Pain, Sputum, Wheezing Cardiovascular: negative: chest pain, palpitations, orthopnea, paroxysmal nocturnal dyspnea, edema, light headedness, other Gastrointestinal: negative: Nausea, Vomiting, Abdominal Pain, Diarrhea, Constipation, Melena, Hematochezia, Other Genitourinary: negative: Dysuria, Frequency, Incontinence, Hematuria, Retention , Other Musculoskeletal: negative: Neck Pain, Shoulder Pain, Arm Pain, Back Pain, Hand Pain, Leg Pain, Foot Pain, Other Skin: negative: Rash, Lesions, David, Bruising, Other Neurological: negative: Weakness, Numbness, Incoordination, Change in Speech, Confusion, Seizures, Other - Medications/Allergies Allergies/Adverse Reactions: Allergies Allergy/AdvReac Type Severity Reaction Status Date / Time No Known Allergies Allergy Verified 12/21/18 22:16 Medications: Current Medications Acetaminophen (Tylenol) 650 mg PO Q4H PRN PRN Reason: Headache/Fever/Mild Pain (1-3) Last Admin: 12/26/18 05:35 Dose: 650 mg Albuterol/Ipratropium (Duoneb) 3 ml EZPAP [id number] COUNT INCLUDES THE [facility] Last Admin: 12/27/18 12:01 Dose: 3 ml Amoxicillin/Clavulanate Potassium (Augmentin) 875 mg PO Q12HR COUNT INCLUDES THE [facility] Last Admin: 12/27/18 09:23 Dose: 875 mg Aspirin (Ecotrin) 81 mg PO DAILY COUNT INCLUDES THE [facility] Last Admin: 12/27/18 09:23 Dose: 81 mg Atorvastatin Calcium (Lipitor) 20 mg PO DAILY COUNT INCLUDES THE [facility] Last Admin: 12/27/18 09:23 Dose: 20 mg Bisacodyl (Dulcolax) 10 mg PO DAILYPRN PRN PRN Reason: Constipation Cholecalciferol (Vitamin D3) 2,000 units PO DAILY COUNT INCLUDES THE [facility] Last Admin: 12/27/18 09:21 Dose: 2,000 units Citalopram Hydrobromide (Celexa) 10 mg PO DAILY COUNT INCLUDES THE [facility] Last Admin: 12/27/18 09:22 Dose: 10 mg Dextrose/Water (Dextrose 50%) 25 gm SLOW IVP PRN PRN PRN Reason: Hypoglycemia Enoxaparin Sodium (Lovenox) 40 mg SC 0900 COUNT INCLUDES THE [facility] Last Admin: 12/27/18 09:23 Dose: 40 mg Ferrous Sulfate (Feosol) 325 mg PO DAILY COUNT INCLUDES THE [facility] Last Admin: 12/27/18 09:22 Dose: 325 mg Fluticasone Propionate (Flonase Nasal [place]) 0 gm NASAL DAILY COUNT INCLUDES THE [facility] Last Admin: 12/27/18 12:26 Dose: 1 spr Glucagon (Glucagon) 1 mg IM PRN PRN PRN Reason: Hypoglycemia Dextrose/Water (D5w) 1,000 mls @ 0 mls/hr IV .Q0M PRN PRN Reason: Hypoglycemia Insulin Human Lispro (Humalog) 0 units SC .MILD SLIDING SCALE PRN PRN Reason: Mild Correctional Scale Last Admin: 12/23/18 11:46 Dose: 3 unit Levothyroxine Sodium (Synthroid) 25 mcg PO 0600 COUNT INCLUDES [facility] Last Admin: 12/27/18 06:19 Dose: 25 mcg Loratadine (Claritin) 10 mg PO DAILY COUNT INCLUDES [facility] Last Admin: 12/27/18 09:23 Dose: 10 mg Metformin HCl (Glucophage) 500 mg PO BID-[facility] Last Admin: 12/27/18 09:22 Dose: 500 mg Montelukast Sodium (Singulair) 10 mg PO DAILY COUNT INCLUDES THE [facility] Last Admin: 12/27/18 09:22 Dose: 10 mg Pantoprazole Sodium (Protonix) 40 mg PO DAILY COUNT INCLUDES THE [facility] Last Admin: 12/27/18 09:23 Dose: 40 mg Prednisone (Prednisone) 40 mg PO QAM-[facility] Last Admin: 12/27/18 09:22 Dose: 40 mg Sterile Water (Bacteriostatic Water) 1 ml FS PRN PRN PRN Reason: RECONSTITUTION
--- NOTE | 2018-12-27 15:40 | PRG ---
DATE OF SERVICE: 12/27/2018 SUBJECTIVE: Ms. Bojorquez is in no distress. OBJECTIVE: VITAL SIGNS: She is afebrile, heart rate 70, respiratory rate is 18, oximetry is 95% on 2 L, blood pressure 143/91. LUNGS: Distant, clear. HEART: Regular rhythm. ABDOMEN: Soft. EXTREMITIES: Without edema. LABORATORY DATA: White count is 9.2, hemoglobin 11.3, platelets 268,000. Sodium 143, potassium 3.4, chloride 115, bicarb 19, BUN 24, creatinine 0.74, glucose 82. IMPRESSION: 1. [id number] respiratory failure with hypoxia. 2. Pneumonia, community-acquired, improving. 3. Bronchiectasis with reactive airway/asthma. 4. Sleep apnea. 5. Reflux disease with a hiatal hernia. PLAN: Continue with p.o. antibiotics, p.o. steroids, and physical therapy. She thinks she will be ready to go home tomorrow. Job ID: [id number]
[2018-12-28] MEDS: Levothyroxine Sodium 25 MCG TAB PO SCH (05:25)
[2018-12-28 06:33] LABS: #Basophils 0.1 thou/uL (0.0-0.2); #Eosinphils 0.2 thou/uL (0.0-0.7); #Lymphocytes 3.1 thou/uL (1.20-3.40); #Monocytes 0.5 thou/uL (0.11-0.59); #Neutrophils 5.8 thou/uL (1.40-6.50); %Basophils 0.5 % (0.0-1.0); %Eosinophils 1.9 % (0.0-10.0); %Lymphocytes 32.2 % (21.0-51.0); %Monocytes 5.2 % (0.0-10.0); %Neutrophils 60.2 % (42.0-75.0); Hemoglobin 11.9 g/dL (12.0-16.0); Mean Corpuscular HGB CONC 32.7 g/dL (32.0-36.0); Mean Corpuscular Hemoglobin 27.3 pg (27.0-31.0); Mean Corpuscular Volume 83.7 fL (78.0-98.0); Mean Platelet Volume 8.1 fL (7.4-10.4); Platelet Count 281 thou/uL (130-400); RBC Distribution Width 15.5 % (11.5-14.5); Red Blood Cell (RBC) Count 4.35 mill/uL (4.20-5.40); White Blood Cell (WBC) Count 9.7 thou/uL (4.8-10.8)
[2018-12-28 06:41] LABS: Anion Gap 14 mmol/L (10-20); BUN (Urea Nitrogen) 22 mg/dL (9.8-20.1); Calc. Creatinine Clearance 69 mL/min (70-130); Calcium 8.8 mg/dL (7.8-10.44); Carbon Dioxide 18 mmol/L (23-31); Chloride 112 mmol/L (98-107); Estimated GFR-MDRD 68; Glucose 100 mg/dL (83-110); Potassium 3.7 mmol/L (3.5-5.1); Sodium 140 mmol/L (136-145)
[2018-12-28] MEDS: Amoxicillin/Potassium Clav 875 MG TAB PO SCH ×2 (08:01→20:38)
[2018-12-28] MEDS: Ferrous Sulfate 325 MG TAB PO SCH (08:01)
[2018-12-28] MEDS: Montelukast Sodium 10 mg Tablet PO SCH (08:01)
[2018-12-28] MEDS: Loratadine 10 MG TAB PO SCH (08:02)
[2018-12-28] MEDS: predniSONE 20 MG TAB PO SCH (08:02)
[2018-12-28] MEDS: metFORMIN 500 MG TAB PO SCH ×2 (08:02→17:54)
[2018-12-28] MEDS: Enoxaparin Sodium 40 MG/0.4 ML SYRINGE SC SCH (08:02)
[2018-12-28] MEDS: Aspirin 81 mg Enteric Coated Tablet PO SCH (08:02)
[2018-12-28] MEDS: Citalopram 10 MG TAB PO SCH (08:02)
[2018-12-28] MEDS: Atorvastatin Calcium 20 MG TAB PO SCH (08:02)
[2018-12-28] MEDS: Fluticasone Propionate Nasal Spray 16 gm Bottle NASAL SCH (10:55)
--- NOTE | 2018-12-28 10:56 | PRG ---
DATE OF SERVICE: 12/28/2018 SERVICE: Pulmonary Medicine. INTERVAL HISTORY: The patient is doing really well from respiratory standpoint. She is breathing comfortably. She continues to cough profusely. She is liberating significant amounts of sputum. She had an uneventful weekend. PHYSICAL EXAMINATION: VITAL SIGNS: Afebrile, pulse 80, blood pressure 115/77, respirations 20, and saturation 96% on 1 L nasal cannula. GENERAL: The patient is awake and alert, in no apparent distress. LUNGS: Decent air entry with extensive rhonchi present. There is not really much of a prolonged expiratory phase or wheezing. HEART: Normal rate and regular. ABDOMEN: Soft, nontender, and nondistended. Bowel sounds are positive. MUSCULOSKELETAL: No cyanosis or clubbing. No pitting in the bilateral lower extremities. NEUROLOGIC: Grossly nonfocal. LABORATORY DATA: CBC is stable/unremarkable. Basic metabolic profile is also unremarkable. Her chloride is improved to 112, sodium is improved to 140. Creatinine is stable at 0.82. Respiratory culture is negative to date. Blood cultures x2 and influenza are negative. Significant eosinophils were present in the sputum. ASSESSMENT: 1. Acute hypoxic respiratory failure, resolving. 2. Community-acquired pneumonia. 3. Bronchiectasis with acute exacerbation. 4. Asthma with acute exacerbation. 5. Obstructive sleep apnea, approved for CPAP therapy finally. 6. Gastroesophageal reflux disease, severe with hiatal hernia. DISCUSSION AND PLAN: I will set the patient up for bronchoscopy tomorrow morning. I will take some random biopsies of the bronchial mucosa. We will plan on doing this tomorrow morning. Afterwards, she can be considered for transition home. Pulmonary/Critical Care will continue to follow along while she remains in-house. Job ID: [id number]
--- NOTE | 2018-12-28 16:16 | PDOC.PN ---
- Subjective Encounter Start Date: 12/28/18 Encounter Start Time: 16:14 Subjective: still coughing a lot w yellow sputum -: easily SOB w exertion - Objective Resuscitation Status - Order Detail: 12/21/18 22:30 Resuscitation Status Routine Resuscitation Status: FULL: Full Resuscitation Discussed with: jacquelyn LEON Reviewed: Yes Vital Signs & Weight: Vital Signs (12 hours) Temp Pulse Resp BP Pulse Ox Pulse Ox Pulse Ox 12/28/18 11:55 68 18 99 12/28/18 10:05 94 L 92 L 12/28/18 08:40 97.7 F 80 20 115/77 96 12/28/18 08:00 96 12/28/18 06:03 71 16 99 Weight Weight 160 lb 12.8 oz I&O: 12/27/18 12/28/18 12/29/18 06:59 06:59 06:59 Intake Total 560 360 Balance 560 360 Result Diagrams: 12/28/18 06:02 12/28/18 06:02 Additional Labs: Accuchecks 12/28/18 12/28/18 12/27/18 11:36 05:28 19:35 POC Glucose 122 H 79 135 H 12/27/18 17:17 POC Glucose 153 H Microbiology 12/25/18 17:30 Sputum Respiratory Culture - Final 12/21/18 19:40 Venous blood - Right Arm Blood Culture - Final NO GROWTH IN 5 DAYS 12/21/18 19:40 Venous blood - Left Arm Blood Culture - Final NO GROWTH IN 5 DAYS 12/21/18 17:59 Nasal swab Influenza Types A,B Direct EIA - Final Phys Exam - Physical Examination Constitutional: NAD HEENT: PERRLA, moist MMs, sclera anicteric, TM's clear, oral pharynx no lesions , 2+ tonsils Neck: no nodes, no JVD, supple, full ROM Respiratory: no wheezing, no rales, clear to auscultation bilateral rhonchi Cardiovascular: RRR ( ), no significant murmur Gastrointestinal: soft, non-tender, no distention, positive bowel sounds Musculoskeletal: no edema, pulses present Neurological: non-focal, normal sensation, moves all 4 limbs Psychiatric: normal affect, A&O x 3 Skin: no rash Dx/Plan (1) Acute respiratory failure with hypoxia Code(s): J96.01 - ACUTE RESPIRATORY FAILURE WITH HYPOXIA Status: Acute Comment: Not on Home o2.improving. multifactorial.supportive care.ABx, steroids, nebs etc (2) Bronchiectasis with (acute) exacerbation Status: Acute Comment: cont solumedrol.Qvar,Asmanex,nebs (3) Community acquired bacterial pneumonia Code(s): J15.9 - UNSPECIFIED BACTERIAL PNEUMONIA Status: Acute Comment: on Vanco+zosyn+PO Azithromycin. Taper if Cx remain negative (4) DM2 (diabetes mellitus, type 2) Status: Chronic Qualifiers: Diabetes mellitus terminal block assembler insulin use: without halfway use Diabetes mellitus complication status: with unspecified complications Qualified Code(s) : E11.8 - Type 2 diabetes mellitus with unspecified complications Comment: On metfromin and ISS .Accuchecks achs (5) Dyslipidemia Code(s): E78.5 - HYPERLIPIDEMIA, UNSPECIFIED Status: Chronic (6) GERD (gastroesophageal reflux disease) Code(s): K21.9 - GASTRO-ESOPHAGEAL REFLUX DISEASE WITHOUT ESOPHAGITIS Status: Chronic Qualifiers: Esophagitis presence: esophagitis presence not specified Qualified Code(s) : K21.9 - Gastro-esophageal reflux disease without esophagitis Comment: cont PPI (7) HTN (hypertension) Code(s): I10 - ESSENTIAL (PRIMARY) HYPERTENSION Status: Chronic Qualifiers: (8) Hypothyroidism Code(s): E03.9 - HYPOTHYROIDISM, UNSPECIFIED Status: Chronic Qualifiers: Comment: cont levothyroxine (9) Microcytic anemia Code(s): D50.9 - IRON DEFICIENCY ANEMIA, UNSPECIFIED Status: Chronic (10) Obesity (BMI 30-39.9) Code(s): E66.9 - OBESITY, UNSPECIFIED Status: Chronic - Plan continue antibiotics, PT/OT, respiratory therapy, incentive spirometry, out of bed/ambulate, DVT proph w/SCDs slowly getteing better -[facility] input -: likely home in next 24 hours -: HD stable -: increase ambulation * . Review of Systems - Review of Systems Constitutional: weakness, malaise. negative: fever, chills, sweats, other ENT: negative: Ear Pain, Ear Discharge, Nose Pain, Nose Discharge, Nose Congestion, Mouth Pain, Mouth Swelling, Throat Pain, Throat Swelling, Other Respiratory: Cough, Shortness of Breath, SOB with Excertion, Sputum. negative: Dry, Hemoptysis, Pleuritic Pain, Wheezing Cardiovascular: negative: chest pain, palpitations, orthopnea, paroxysmal nocturnal dyspnea, edema, light headedness, other Gastrointestinal: negative: Nausea, Vomiting, Abdominal Pain, Diarrhea, Constipation, Melena, Hematochezia, Other Genitourinary: negative: Dysuria, Frequency, Incontinence, Hematuria, Retention , Other Musculoskeletal: negative: Neck Pain, Shoulder Pain, Arm Pain, Back Pain, Hand Pain, Leg Pain, Foot Pain, Other Skin: negative: Rash, Lesions, David, Bruising, Other Neurological: negative: Weakness, Numbness, Incoordination, Change in Speech, Confusion, Seizures, Other - Medications/Allergies Allergies/Adverse Reactions: Allergies Allergy/AdvReac Type Severity Reaction Status Date / Time No Known Allergies Allergy Verified 12/21/18 22:16 Medications: Current Medications Acetaminophen (Tylenol) 650 mg PO Q4H PRN PRN Reason: Headache/Fever/Mild Pain (1-3) Last Admin: 12/26/18 05:35 Dose: 650 mg Albuterol/Ipratropium (Duoneb) 3 ml EZPAP [id number] [facility] Last Admin: 12/28/18 11:55 Dose: 3 ml Amoxicillin/Clavulanate Potassium (Augmentin) 875 mg PO Q12HR [facility] Last Admin: 12/28/18 08:01 Dose: 875 mg Atorvastatin Calcium (Lipitor) 20 mg PO DAILY [facility] Last Admin: 12/28/18 08:02 Dose: 20 mg Bisacodyl (Dulcolax) 10 mg PO DAILYPRN PRN PRN Reason: Constipation Cholecalciferol (Vitamin D3) 2,000 units PO DAILY [facility] Last Admin: 12/28/18 08:01 Dose: 2,000 units Citalopram Hydrobromide (Celexa) 10 mg PO DAILY [facility] Last Admin: 12/28/18 08:02 Dose: 10 mg Dextrose/Water (Dextrose 50%) 25 gm SLOW IVP PRN PRN PRN Reason: Hypoglycemia Ferrous Sulfate (Feosol) 325 mg PO DAILY [facility] Last Admin: 12/28/18 08:01 Dose: 325 mg Fluticasone Propionate (Flonase Nasal [place]) 0 gm NASAL DAILY [facility] Last Admin: 12/28/18 10:55 Dose: Not Given Glucagon (Glucagon) 1 mg IM PRN PRN PRN Reason: Hypoglycemia Dextrose/Water (D5w) 1,000 mls @ 0 mls/hr IV .Q0M PRN PRN Reason: Hypoglycemia Insulin Human Lispro (Humalog) 0 units SC .MILD SLIDING SCALE PRN PRN Reason: Mild Correctional Scale Last Admin: 12/23/18 11:46 Dose: 3 unit Levothyroxine Sodium (Synthroid) 25 mcg PO 0600 [facility] Last Admin: 12/28/18 05:25 Dose: 25 mcg Loratadine (Claritin) 10 mg PO DAILY [facility] Last Admin: 12/28/18 08:02 Dose: 10 mg Metformin HCl (Glucophage) 500 mg PO BID-[facility] Last Admin: 12/28/18 08:02 Dose: 500 mg Montelukast Sodium (Singulair) 10 mg PO DAILY [facility] Last Admin: 12/28/18 08:01 Dose: 10 mg Pantoprazole Sodium (Protonix) 40 mg PO DAILY [facility] Last Admin: 12/28/18 08:01 Dose: 40 mg Prednisone (Prednisone) 40 mg PO QAM-[facility] Last Admin: 12/28/18 08:02 Dose: 40 mg Sterile Water (Bacteriostatic Water) 1 ml FS PRN PRN PRN Reason: RECONSTITUTION
[2018-12-28] MEDS ORDERED: Promethazine HCl 6.25 MG/5 ML Syrup PO PRN (23:19)
[2018-12-29] MEDS: Levothyroxine Sodium 25 MCG TAB PO SCH (05:37)
[2018-12-29] MEDS ORDERED: Fentanyl 100 MCG/2 ML VIAL ONE (08:53)
[2018-12-29] MEDS ORDERED: Albuterol Sulfate HFA (OR ONLY) ONE (09:31)
[2018-12-29] MEDS ORDERED: SUGAMMADEX SODIUM 500 MG/5 ML VIAL ONE (09:36)
[2018-12-29] MEDS ORDERED: Morphine Sulfate 2 MG/ML SYRINGE SLOW IVP PRN (10:38)
[2018-12-29] MEDS ORDERED: Promethazine HCl 25 MG/ML VIAL IM PRN (10:38)
[2018-12-29] MEDS ORDERED: Ondansetron HCl/PF 4 MG/2 ML Vial IVP PRN (10:38)
--- NOTE | 2018-12-29 10:44 | PRG ---
DATE OF SERVICE: 12/29/2018 SERVICE: Pulmonary Medicine. INTERVAL HISTORY: The patient is doing okay from respiratory standpoint. She continues to have cough, but is having a hard time liberating some of the mucus. She denies any current fevers or chills. There has been no interval change to her condition otherwise. PHYSICAL EXAMINATION: VITAL SIGNS: Afebrile, pulse 73, blood pressure 145/90, respirations 20, and saturation 95% on 1.5 L nasal cannula. GENERAL: The patient is awake and alert, in no apparent distress. LUNGS: Decent air entry. No prolonged expiratory phase or wheezing is appreciated. HEART: Normal rate and regular. ABDOMEN: Soft, nontender, and nondistended. Bowel sounds are positive. MUSCULOSKELETAL: No cyanosis or clubbing. No pitting in the bilateral lower extremities. NEUROLOGIC: Grossly nonfocal. ASSESSMENT: 1. Acute hypoxic respiratory failure, improving. 2. Community-acquired pneumonia, resolving. 3. Bronchiectasis with acute exacerbation. 4. Asthma with acute exacerbation. 5. Obstructive sleep apnea, to start CPAP therapy soon. 6. Gastroesophageal reflux disease, severe with hiatal hernia. DISCUSSION AND PLAN: The patient is doing okay from respiratory standpoint, but has been very slow to recover. She continues to have significant amounts of crud in her chest that she cannot liberate. She is on line for bronchoscopy today. Hopefully, we will be able to liberate significant sputum. After this procedure, if she is breathing well, she can be considered for transition home, but she will need to continue her steroid taper over a period of the next 2 weeks. She is going to initiate CPAP therapy. We are trying to get her on disease modifying therapy for her asthma. Pulmonary/Critical Care will continue to follow along. Job ID: [id number]
[2018-12-29] MEDS ORDERED: PROPOFOL 200 MG/20 ML VIAL ONE (10:50)
[2018-12-29] MEDS ORDERED: Rocuronium Bromide 10 MG/ML (10ML VIAL) ONE (10:50)
[2018-12-29] MEDS ORDERED: Ondansetron PF 4 MG/2 ML Vial ONE (10:50)
[2018-12-29] MEDS ORDERED: PHENYLEPHRINE-NS 100 MCG/ML 10 ML SYRINGE ONE (10:50)
[2018-12-29] MEDS ORDERED: ePHEDrine 50 MG/ML VIAL ONE (10:50)
[2018-12-29] MEDS ORDERED: Succinylcholine Chloride 20 MG/ML 10 ml SYRINGE FS ONE (10:50)
[2018-12-29] MEDS ORDERED: Dexamethasone 20 MG/5 ML VIAL ONE (10:50)
[2018-12-29] MEDS ORDERED: Lidocaine 1% PF 5 ML VIAL ONE (10:50)
[2018-12-29] MEDS: Citalopram 10 MG TAB PO SCH (11:23)
[2018-12-29] MEDS: Amoxicillin/Potassium Clav 875 MG TAB PO SCH ×2 (11:23→20:00)
[2018-12-29] MEDS: predniSONE 20 MG TAB PO SCH (11:23)
[2018-12-29] MEDS: Ferrous Sulfate 325 MG TAB PO SCH (11:23)
[2018-12-29] MEDS: Loratadine 10 MG TAB PO SCH (11:23)
[2018-12-29] MEDS: guaiFENesin/DM ER PO SCH ×2 (11:23→20:00)
[2018-12-29] MEDS: Atorvastatin Calcium 20 MG TAB PO SCH (11:23)
[2018-12-29] MEDS: metFORMIN 500 MG TAB PO SCH ×2 (11:23→16:50)
[2018-12-29] MEDS: Montelukast Sodium 10 mg Tablet PO SCH (11:24)
[2018-12-29] MEDS: Fluticasone Propionate Nasal Spray 16 gm Bottle NASAL SCH (11:24)
[2018-12-29 13:42] LABS: BF Color Gray; Body Fluid Source Bronchial Washings; Clarity Cloudy/Turbid (Clear); Tube # EDTA
[2018-12-29 13:43] LABS: BF RBC Count - Manual 590 /cumm; BF WBC/Nonhematics Ct. - Manua 1780 /cumm
--- NOTE | 2018-12-29 15:22 | OP ---
DATE OF PROCEDURE: 12/29/2018 SERVICE: Pulmonary Medicine. PROCEDURE PERFORMED: Fiberoptic bronchoscopy with, 1. Visual airway inspection. 2. Lavage of all segments throughout bilateral lung cloud with significant liberation of mucus/endobronchial plugs. PREOPERATIVE DIAGNOSES: 1. Bronchiectasis with acute exacerbation. 2. Acute hypoxic respiratory failure. POSTOPERATIVE DIAGNOSES: 1. Bronchiectasis with acute exacerbation. 2. Acute hypoxic respiratory failure. MEDICATIONS USED: For list of medications, please refer to Anesthesia documentation. PREANESTHESIA ASSESSMENT: H and P had been performed. The patient's medications and allergies were reviewed. Informed consent was obtained after discussing the risks, benefits, and rationale for performing the procedure as well as alternative options. DESCRIPTION OF PROCEDURE: A time-out was performed identifying the correct procedure and the patient with name and date of . A diagnostic fiberoptic bronchoscope was introduced through the 8.5 endotracheal tube. The bronchoscope was advanced into the trachea, where a tracheobronchial tree inspection was carried out with clear identification of the right upper lobe, right middle lobe, right lower lobe, left upper lobe, lingula, and left lower lobe. Secretions were extremely heavy throughout bilateral lung cloud and involved all segments of the upper, middle, and lower lobes bilaterally. It even involved the left and right mainstem bronchi and part of the trachea. The secretions were extraordinarily heavy and tenacious. All segments of the lung were lavaged aggressively and mucus plugs were liberated throughout. There was no endobronchial disease identified. Because of her recent aspirin/Lovenox and the friability of the mucosa of the lung, a biopsy was not performed. FINDINGS: 1. No endobronchial disease was identified. 2. Mucosa was quite friable. 3. Secretions were extraordinarily heavy with endobronchial plugs throughout bilateral lung cloud resulting in near complete occlusion of the right and left main stem bronchi as well as all distal airways. SPECIMENS OBTAINED: 1. Pathology on bronchial wash. 2. Microbiology and cell count on bronchial washing. COMPLICATIONS: None. ESTIMATED BLOOD LOSS: None. FLUOROSCOPY TIME: None. DISPOSITION: The patient will return to her room after she meets criteria in the postanesthesia care unit. Job ID: [id number] [id number]
[2018-12-29 15:42] LABS: BF Segmented Neutrophils 42 %; Cell Count Non Hematic 54 %; Eosinophils 2 %; Lymphocytes 2 %
--- NOTE | 2018-12-29 15:54 | PDOC.PN ---
- Subjective Encounter Start Date: 12/29/18 Encounter Start Time: 15:53 Subjective: s/p bronchoscopy today and feels very weak -: c/o persistant cough - Objective Resuscitation Status - Order Detail: 12/21/18 22:30 Resuscitation Status Routine Resuscitation Status: FULL: Full Resuscitation Discussed with: jacquelyn LEON Reviewed: Yes Vital Signs & Weight: Vital Signs (12 hours) Temp Pulse Resp BP Pulse Ox 12/29/18 12:11 90 16 97 12/29/18 11:05 97.4 F L 82 20 129/80 95 12/29/18 07:23 98.1 F 73 20 145/90 H 95 12/29/18 06:16 72 16 97 12/29/18 04:00 97.7 F 74 18 150/85 H 95 Weight Weight 160 lb 12.8 oz I&O: 12/28/18 12/29/18 12/30/18 06:59 06:59 06:59 Intake Total 360 Balance 360 Result Diagrams: 12/28/18 06:02 12/28/18 06:02 Additional Labs: Accuchecks 12/29/18 12/29/18 12/28/18 11:39 05:41 19:21 POC Glucose 109 78 117 H 12/28/18 16:33 POC Glucose 218 H Microbiology 12/25/18 17:30 Sputum Respiratory Culture - Final 12/21/18 19:40 Venous blood - Right Arm Blood Culture - Final NO GROWTH IN 5 DAYS 12/21/18 19:40 Venous blood - Left Arm Blood Culture - Final NO GROWTH IN 5 DAYS 12/21/18 17:59 Nasal swab Influenza Types A,B Direct EIA - Final 12/29/18 10:09 Bronchial Washing Respiratory Culture - Preliminary Phys Exam - Physical Examination Constitutional: NAD coughing HEENT: PERRLA, moist MMs, sclera anicteric, oral pharynx no lesions Neck: no nodes, no JVD, supple, full ROM Respiratory: no wheezing, no rales, no rhonchi, clear to auscultation bilateral Cardiovascular: RRR, no significant murmur Gastrointestinal: soft, non-tender, no distention, positive bowel sounds Musculoskeletal: no edema, pulses present Neurological: non-focal, normal sensation, moves all 4 limbs Psychiatric: normal affect, A&O x 3 Skin: no rash Dx/Plan (1) Acute respiratory failure with hypoxia Code(s): J96.01 - ACUTE RESPIRATORY FAILURE WITH HYPOXIA Status: Acute Comment: Not on Home o2.improving. multifactorial.supportive care.ABx, steroids, nebs etc (2) Bronchiectasis with (acute) exacerbation Status: Acute Comment: cont solumedrol.Qvar,Asmanex,nebs (3) Community acquired bacterial pneumonia Code(s): J15.9 - UNSPECIFIED BACTERIAL PNEUMONIA Status: Acute Comment: on Vanco+zosyn+PO Azithromycin. Taper if Cx remain negative (4) DM2 (diabetes mellitus, type 2) Status: Chronic Qualifiers: Diabetes mellitus vermin exterminator insulin use: without vermin exterminator use Diabetes mellitus complication status: with unspecified complications Qualified Code(s) : E11.8 - Type 2 diabetes mellitus with unspecified complications Comment: On metfromin and ISS .Accuchecks achs (5) Dyslipidemia Code(s): E78.5 - HYPERLIPIDEMIA, UNSPECIFIED Status: Chronic (6) GERD (gastroesophageal reflux disease) Code(s): K21.9 - GASTRO-ESOPHAGEAL REFLUX DISEASE WITHOUT ESOPHAGITIS Status: Chronic Qualifiers: Esophagitis presence: esophagitis presence not specified Qualified Code(s) : K21.9 - Gastro-esophageal reflux disease without esophagitis Comment: cont PPI (7) HTN (hypertension) Code(s): I10 - ESSENTIAL (PRIMARY) HYPERTENSION Status: Chronic Qualifiers: (8) Hypothyroidism Code(s): E03.9 - HYPOTHYROIDISM, UNSPECIFIED Status: Chronic Qualifiers: Comment: cont levothyroxine (9) Microcytic anemia Code(s): D50.9 - IRON DEFICIENCY ANEMIA, UNSPECIFIED Status: Chronic (10) Obesity (BMI 30-39.9) Code(s): E66.9 - OBESITY, UNSPECIFIED Status: Chronic - Plan respiratory therapy, incentive spirometry, DVT proph w/SCDs follow Bronch lavage Results -: cont supportive care -: Eryn WHITE in am -: cont steroids,Nebs,ABx. CPAP as an OP. -: Appreciate PCCM input.HD stable * . Review of Systems - Review of Systems Constitutional: negative: fever, chills, sweats, weakness, malaise, other ENT: negative: Ear Pain, Ear Discharge, Nose Pain, Nose Discharge, Nose Congestion, Mouth Pain, Mouth Swelling, Throat Pain, Throat Swelling, Other Respiratory: negative: Cough, Dry, Shortness of Breath, Hemoptysis, SOB with Excertion, Pleuritic Pain, Sputum, Wheezing Cardiovascular: negative: chest pain, palpitations, orthopnea, paroxysmal nocturnal dyspnea, edema, light headedness, other Gastrointestinal: negative: Nausea, Vomiting, Abdominal Pain, Diarrhea, Constipation, Melena, Hematochezia, Other Genitourinary: negative: Dysuria, Frequency, Incontinence, Hematuria, Retention , Other Musculoskeletal: negative: Neck Pain, Shoulder Pain, Arm Pain, Back Pain, Hand Pain, Leg Pain, Foot Pain, Other Skin: negative: Rash, Lesions, David, Bruising, Other Neurological: negative: Weakness, Numbness, Incoordination, Change in Speech, Confusion, Seizures, Other - Medications/Allergies Allergies/Adverse Reactions: Allergies Allergy/AdvReac Type Severity Reaction Status Date / Time No Known Allergies Allergy Verified 12/21/18 22:16 Medications: Current Medications Acetaminophen (Tylenol) 650 mg PO Q4H PRN PRN Reason: Headache/Fever/Mild Pain (1-3) Last Admin: 12/26/18 05:35 Dose: 650 mg Albuterol/Ipratropium (Duoneb) 3 ml EZPAP P2CW-LP [facility] Last Admin: 12/29/18 12:11 Dose: 3 ml Amoxicillin/Clavulanate Potassium (Augmentin) 875 mg PO Q12HR [facility] Last Admin: 12/29/18 11:23 Dose: 875 mg Atorvastatin Calcium (Lipitor) 20 mg PO DAILY [facility] Last Admin: 12/29/18 11:23 Dose: 20 mg Bisacodyl (Dulcolax) 10 mg PO DAILYPRN PRN PRN Reason: Constipation Cholecalciferol (Vitamin D3) 2,000 units PO DAILY [facility] Last Admin: 12/29/18 11:24 Dose: 2,000 units Citalopram Hydrobromide (Celexa) 10 mg PO DAILY [facility] Last Admin: 12/29/18 11:23 Dose: 10 mg Dextrose/Water (Dextrose 50%) 25 gm SLOW IVP PRN PRN PRN Reason: Hypoglycemia Last Admin: 12/29/18 06:27 Dose: 25 gm Ferrous Sulfate (Feosol) 325 mg PO DAILY [facility] Last Admin: 12/29/18 11:23 Dose: 325 mg Fluticasone Propionate (Flonase Nasal [place]) 0 gm NASAL DAILY [facility] Last Admin: 12/29/18 11:24 Dose: Not Given Glucagon (Glucagon) 1 mg IM PRN PRN PRN Reason: Hypoglycemia Guaifenesin/Dextromethorphan (Mucinex Dm) 1 tab PO Q12HR [facility] Last Admin: 12/29/18 11:23 Dose: 1 tab Dextrose/Water (D5w) 1,000 mls @ 0 mls/hr IV .Q0M PRN PRN Reason: Hypoglycemia Insulin Human Lispro (Humalog) 0 units SC .MILD SLIDING SCALE PRN PRN Reason: Mild Correctional Scale Last Admin: 12/23/18 11:46 Dose: 3 unit Levothyroxine Sodium (Synthroid) 25 mcg PO 0600 [facility] Last Admin: 12/29/18 05:37 Dose: Not Given Loratadine (Claritin) 10 mg PO DAILY [facility] Last Admin: 12/29/18 11:23 Dose: 10 mg Metformin HCl (Glucophage) 500 mg PO BID-[facility] Last Admin: 12/29/18 11:23 Dose: 500 mg Montelukast Sodium (Singulair) 10 mg PO DAILY [facility] Last Admin: 12/29/18 11:24 Dose: 10 mg Pantoprazole Sodium (Protonix) 40 mg PO DAILY [facility] Last Admin: 12/29/18 11:23 Dose: 40 mg Prednisone (Prednisone) 40 mg PO QAM-[facility] Last Admin: 12/29/18 11:23 Dose: 40 mg Promethazine HCl (Phenergan 6.25 Mg/5ml Syrup) 25 mg PO Q6H PRN PRN Reason: Nausea/Vomiting Sterile Water (Bacteriostatic Water) 1 ml FS PRN PRN PRN Reason: RECONSTITUTION
[2018-12-29] MEDS: HumaLOG 300 UNITS/3 ML VIAL SC PRN (16:50)
[2018-12-30] MEDS: Levothyroxine Sodium 25 MCG TAB PO SCH (05:39)
[2018-12-30] MEDS: predniSONE 20 MG TAB PO SCH (07:08)
[2018-12-30] MEDS: metFORMIN 500 MG TAB PO SCH (07:08)
[2018-12-30] MEDS: Amoxicillin/Potassium Clav 875 MG TAB PO SCH (07:08)
[2018-12-30] MEDS: Atorvastatin Calcium 20 MG TAB PO SCH (07:09)
[2018-12-30] MEDS: Citalopram 10 MG TAB PO SCH (07:09)
[2018-12-30] MEDS: Ferrous Sulfate 325 MG TAB PO SCH (07:09)
[2018-12-30] MEDS: guaiFENesin/DM ER PO SCH (07:09)
[2018-12-30] MEDS: Loratadine 10 MG TAB PO SCH (07:09)
[2018-12-30] MEDS: Fluticasone Propionate Nasal Spray 16 gm Bottle NASAL SCH (07:10)
[2018-12-30] MEDS: Montelukast Sodium 10 mg Tablet PO SCH (07:10)
--- NOTE | 2018-12-30 11:09 | PRG ---
DATE OF SERVICE: 12/30/2018 SERVICE: Pulmonary Medicine. INTERVAL HISTORY: The patient is doing really well from respiratory standpoint. Since we liberated all that sputum with a bronchoscopy yesterday, she has been able to walk laps. She got a very good night sleep last night without any coughing. She denies any current fevers or chills. There has been no interval change to her condition otherwise. She is requiring a little bit of oxygen today. We will do a home O2 evaluation at some point today. PHYSICAL EXAMINATION: VITAL SIGNS: Afebrile, pulse 91, blood pressure 106/55, respirations 20, and saturation 92% on 2 L nasal cannula. GENERAL: The patient is awake and alert, in no apparent distress. LUNGS: There is excellent air entry. Rhonchi are once again noted. There is a slightly prolonged expiratory phase, but I do not appreciate wheezing today. HEART: Normal rate, regular. ABDOMEN: Soft. Nontender and nondistended. Bowel sounds are positive. MUSCULOSKELETAL: No cyanosis or clubbing. There is no pitting in the bilateral lower extremities. NEUROLOGIC: Grossly nonfocal. LABORATORY DATA: There were significant white blood cells in the sputum. It was predominantly neutrophils. Eosinophils were only 2% (on steroids). Nonhematologic cells at this point dominate. All respiratory cultures are negative to date. Gram stain was also unremarkable. Cytology was negative for malignancy. Extensive acute inflammatory changes were in the background. ASSESSMENT: 1. Acute hypoxic respiratory failure, improving. 2. Community-acquired pneumonia, resolved. 3. Bronchiectasis with acute exacerbation, resolved. 4. Asthma with acute exacerbation. 5. Obstructive sleep apnea, starting CPAP therapy soon. 6. Gastroesophageal reflux disease, severe with hiatal hernia. DISCUSSION AND PLAN: She will continue her acid reflux precautions. We will get her on CPAP as soon as possible in the outpatient setting. She can resume her home inhalers on discharge. I would like for her to follow up with me in clinic within 2 to 4 weeks in the outpatient setting. She can go on a 2-week tapering course of steroids. Antibiotics should be interrupted after a total duration of 14 days. From my perspective, she is stable for transition home today. She may need temporary oxygen to get her there. Job ID: [id number]
[2018-12-30 17:04] VITALS: BP 131/66; TEMP 98.1
--- NOTE | 2018-12-31 08:45 | DIS ---
DATE OF ADMISSION: 12/21/2018 DATE OF DISCHARGE: 12/30/2018 CONDITION: At the time of discharge, stable and improved. DISCHARGE DISPOSITION: Home. PRIMARY CARE PHYSICIAN: Shannon Ta MD. PRIMARY MANAGER ENVIRONMENTAL HEALTH AND SAFETY: Dr. Calix. DISCHARGE DIAGNOSES: 1. Acute hypoxic respiratory failure. 2. Bronchiectasis with acute exacerbation. 3. Community-acquired pneumonia. 4. Diabetes mellitus type 2. 5. Dyslipidemia. 6. Gastroesophageal reflux disease. 7. Hypertension. 8. Hypothyroidism. 9. Microcytic anemia. 10. Obesity with body mass index of 32. DISCHARGE MEDICATION: New medications: 1. Augmentin 875 mg p.o. daily for 10 more days. 2. Medrol Dosepak. Resume home medications as follows: 1. Glucophage 500 mg p.o. b.i.d. 2. Losartan/hydrochlorothiazide 100/25 mg daily. 3. Xopenex q.8 hours p.r.n. 4. Nexium 40 mg daily. 5. Citalopram 10 mg daily. 6. Vitamin D3 daily. 7. Lipitor 20 mg daily. 8. Cetirizine p.r.n. 9. Aspirin 81 mg daily. 10. Albuterol inhaler p.r.n. 11. Flonase daily. 12. Arnuity Ellipta 1 inhalation daily. 13. Magnesium citrate 100 mg daily p.o. 14. Ferrous sulfate 325 mg daily. 15. Levothyroxine 25 mcg daily. IN-HOUSE CONSULTATION: Pulmonary Medicine; Dr. He, Dr. Andrews, and Dr. Calix. PROCEDURES DONE IN THE HOSPITAL: Bronchoscopy with bronchoalveolar lavage. Pathology shows extensive acute inflammation. HISTORY OF PRESENTING ILLNESS: Ms. Bojorquez is a 73-year-old female with known history of severe bronchiectasis; obstructive sleep apnea, not on CPAP; hypertension, diabetes, dyslipidemia, chronic bronchitis, and severe gastroesophageal reflux, who presented to the emergency room with complaints of shortness of breath. She was last admitted to our facility about 2 months ago for similar presentation. Upon presentation, she was requiring oxygen and was hypoxic without it. She was suspected to be having an acute exacerbation of her bronchiectasis with pneumonia. She was started on bronchodilators, nebulizers, inhaler, steroids and antibiotics and Pulmonary Medicine was consulted. Please see admission history and physical for further details dictated by Dr. Llanos on 12/21/2018. HOSPITAL COURSE: Pulmonary Medicine saw the patient and they followed her along. She had slow improvement in her symptoms. Dr. Calix saw her and continued to help her to get the CPAP set up done as an outpatient. Because of the slow improvement in her symptoms, bronchoscopy with lavage was done with removal of significant amount of stuck mucus. This helped the patient more than any medications and as of this morning, she is back to her baseline. However, the patient's oxygen requirement did not go down. She was set up with home oxygen for now. CPAP machine will be provided by Dr. Calix in the outpatient setting. She is also in the process of getting biologicals for her bronchiectasis in the outpatient setting. At this time, she has been cleared to discharge from pulmonary standpoint. I have seen and examined the patient and she is eager to go home herself as well. Home oxygen is set up as well. The patient was seen and examined prior to discharge. PHYSICAL EXAMINATION: This morning, VITAL SIGNS: Temperature 98.0, pulse of 86, respirations 20, saturating 92% on room air, blood pressure 106/55. GENERAL: No acute distress. Awake, alert, and oriented x3. CHEST: Clear to auscultation bilaterally. HEART: Rate and rhythm is regular. Discharge plan was discussed with the patient and her family who verbalized understanding. They will follow up with Dr. Calix in 2 to 3 weeks and primary care physician in 1 to 2 weeks. TIME SPENT: Total time spent in the discharge of this patient, 35 minutes. Job ID: [id number]
== END 2018-12-30 17:07 | disposition home or self-care (01) | DRG 163 ==
LOC: ERS 15:39 → 2NO 20:48 → T4-A 12-23 21:50
PROVIDERS: ADMIT Internal Medicine; ATTEND Internal Medicine
PROC: 0BCM8ZZ Extirpation of Matter from Bilateral Lungs, Via Natural or Artificial Opening Endoscopic (ICD-10-PCS; principal; 2018-12-29)
DX: J96.01 Acute respiratory failure with hypoxia (principal); J15.9 Unspecified bacterial pneumonia; N17.9 Acute kidney failure, unspecified; J47.1 Bronchiectasis with (acute) exacerbation; J45.901 Unspecified asthma with (acute) exacerbation; G47.33 Obstructive sleep apnea (adult) (pediatric); I10 Essential (primary) hypertension; E11.9 Type 2 diabetes mellitus without complications; E78.5 Hyperlipidemia, unspecified; D50.9 Iron deficiency anemia, unspecified; K21.9 Gastro-esophageal reflux disease without esophagitis; E03.9 Hypothyroidism, unspecified; F32.9 Major depressive disorder, single episode, unspecified; E55.9 Vitamin D deficiency, unspecified; F41.9 Anxiety disorder, unspecified; E66.9 Obesity, unspecified; K44.9 Diaphragmatic hernia without obstruction or gangrene; Z90.49 Acquired absence of other specified parts of digestive tract; Z79.82 Long term (current) use of aspirin; Z68.32 Body mass index [BMI] 32.0-32.9, adult; Z79.84 Long term (current) use of oral hypoglycemic drugs
CPT/HCPCS: 36415; 36416; 71046; 80048; 80053; 80202; 83605; 84484; 85025; 85060; 87040; 87070; 87102; 87116; 87205; 87206; 87804; 88112; 88305; 89051; 89190; 93005; 94640; 94664; 94667; 94668; 96365; 96375; J1100; J1650; J2001; J2405; J2543; J2704; J2920; J2930; J3010; J3370; J3490; J7050; J7512; J7620

== ENCOUNTER → 2019-02-16 | Day surgery (SDC) | payer MEDICARE | LOC: ENDO/OP 07:44 | PROVIDERS: ATTEND Specialist | DX: K44.9 Diaphragmatic hernia without obstruction or gangrene (principal); E11.9 Type 2 diabetes mellitus without complications; M15.9 Polyosteoarthritis, unspecified; E03.9 Hypothyroidism, unspecified; E78.5 Hyperlipidemia, unspecified; K21.9 Gastro-esophageal reflux disease without esophagitis; D51.0 Vitamin B12 deficiency anemia due to intrinsic factor deficiency; I10 Essential (primary) hypertension; G47.30 Sleep apnea, unspecified; Z79.84 Long term (current) use of oral hypoglycemic drugs; Z79.82 Long term (current) use of aspirin; Z79.899 Other long term (current) drug therapy; Z99.89 Dependence on other enabling machines and devices | CPT/HCPCS: 91010 ==

== ENCOUNTER 2020-01-20 10:54 | Outpatient (CLI) | payer MEDICARE, MEDICAID ==
--- NOTE | 2020-01-20 13:19 | RAD ---
LUMBAR SPINE 2 VIEWS: HISTORY: Back pain. FINDINGS: AP and lateral views obtained weightbearing. Slight curvature to the right in the AP projection. In the lateral view, the lumbar vertebrae maint ain normal height. There is a grade I anterolisthesis at L4-5 and a grade I anterolisthesis at L5-S1 . Mild loss of disk space at these levels. Facet hypertrophy. Mild degenerative spurring. IMPRESSION: Degenerative changes of the lumbar spine. Anterolisthesis at L4-5 and at L5-S1 as noted. POS: AGW
== END 2020-01-20 10:55 | disposition home or self-care (01) ==
LOC: BICRAD 10:54
PROVIDERS: ATTEND Family Medicine
DX: M54.5 Low back pain (principal); M47.816 Spondylosis without myelopathy or radiculopathy, lumbar region; M43.16 Spondylolisthesis, lumbar region; M43.17 Spondylolisthesis, lumbosacral region
CPT/HCPCS: 72100

== ENCOUNTER 2020-07-28 13:33 | Outpatient (CLI) | payer MEDICARE, MEDICAID ==
[~2020-07-28 13:33] MED LIST: Iopamidol-370 76% 500 ML 1 ML ONE
--- NOTE | 2020-07-28 15:26 | CT ---
CT neck soft tissues with contrast: 07/28/2020 HISTORY: 75-year-old female with neck mass R 22.1 COMPARISON: None FINDINGS: An external marker has been placed at the left anterior neck. There is no evidence of solid or cystic mass adjacent to that marker or anywhere else in the neck. The upper edge of moderate size hiatal hernia visualized at lower most slices. Greater than 75% of the lungs were included on this CT, with exclusion of only the basilar portions o f the lower lobes and right middle lobe. No consolidation, pulmonary edema, pleural effusion, or pneumothorax. There is at least mild cardiomegaly with four-chamber dilation. Ectasia (especially ascending aorta) and tortuosity of thoracic aorta with atherosclerotic calcificat ion. Calcification throughout LAD. No mediastinal or hilar lymphadenopathy. Nonspecific small left thyroid nodules. Trachea and bilateral mainstem bronchi are patent and clear. Multilevel high-grade degenerative disc disease at C3-4, C6-7, C7-T1, and T1-2. Severe left facet DJD at C5-6. No cervical lymphadenopathy. Nonspecific mild distortion of larynx without evidence of mass. No major pathology identified involving carotid, submandibular, parotid, parapharyngeal, pharyngeal m ucosal, trim attacher, sublingual, perivertebral, or posterior cervical, spaces. IMPRESSION: 1.) No solid or cystic mass identified in the neck. 2) high-grade cervical spondylosis. 3) ICD-10: I 25.84: Coronary atherosclerosis due to calcified coronary lesion. 4) moderate size hiatal hernia.
== END 2020-07-28 13:34 | disposition home or self-care (01) ==
LOC: BICCT 13:33
PROVIDERS: ATTEND Family Medicine
DX: R22.1 Localized swelling, mass and lump, neck (principal); M47.812 Spondylosis without myelopathy or radiculopathy, cervical region; K44.9 Diaphragmatic hernia without obstruction or gangrene; I25.84 Coronary atherosclerosis due to calcified coronary lesion
CPT/HCPCS: 70491; 82565; Q9967

== ENCOUNTER 2020-08-03 13:31 | Outpatient (CLI) | payer MEDICARE, MEDICAID ==
--- NOTE | 2020-08-03 14:39 | MMO ---
Bilateral MAMMO Bilat Screen [facility]. CLINICAL HISTORY: Patient is 75 years old and is seen for screening. VIEWS: The views performed were: . FILMS COMPARED: The present examination has been compared to prior imaging studies performed at [facility] on 07/22/2014, 09/30/2015, 10/22/2016 and 11/11/2017. This study has been interpreted with the assistance of computer-aided detection. MAMMOGRAM FINDINGS: There are scattered fibroglandular densities. There are stable benign appearing calcifications seen in both breasts. There are no suspicious masses, suspicious calcifications, or new areas of architectural distortion. IMPRESSION: THERE IS NO MAMMOGRAPHIC EVIDENCE OF MALIGNANCY. A ROUTINE FOLLOW-UP MAMMOGRAM IN 1 YEAR IS RECOMMENDED. THE RESULTS OF THIS EXAM WERE SENT TO THE PATIENT. ACR BI-RADS Category 2 - Benign finding MAMMOGRAPHY NOTE: 1. A negative mammogram report should not delay a biopsy if a dominant of clinically suspicious mass is present. 2. Approximately 10% to 15% of breast cancers are not detected by mammography. 3. Adenosis and dense breasts may obscure an underlying neoplasm. Reported by: KAYLIE JACKSON MD Electonically Signed: [id number]
== END 2020-08-03 13:32 | disposition home or self-care (01) ==
LOC: BICMAMMO 13:31
PROVIDERS: ATTEND Family Medicine
DX: Z12.31 Encounter for screening mammogram for malignant neoplasm of breast (principal)
CPT/HCPCS: 77063; 77067

== ENCOUNTER 2021-08-21 08:11 | Outpatient (CLI) | payer MEDICAID, MEDICARE | END 2021-08-21 08:12 | disposition home or self-care (01) | LOC: BICMAMMO 08:11 | PROVIDERS: ATTEND Family Medicine | DX: Z12.31 Encounter for screening mammogram for malignant neoplasm of breast (principal) | CPT/HCPCS: 77063; 77067 ==

== ENCOUNTER 2022-05-17 12:16 | Observation (INO) | payer MEDICAID, MEDICARE ==
[2022-05-17 13:13] LABS: #Eosinphils 0.1 thou/uL (0.0-0.7); #Lymphocytes 1.6 thou/uL (1.20-3.40); #Monocytes 0.5 thou/uL (0.11-0.59); #Neutrophils 5.8 thou/uL (1.40-6.50); %Basophils 0.1 % (0.0-1.0); %Eosinophils 1.3 % (0.0-10.0); %Lymphocytes 19.7 % (21.0-51.0); %Monocytes 5.9 % (0.0-10.0); %Neutrophils 72.9 % (42.0-75.0); Hemoglobin 12.8 g/dL (12.0-16.0); Mean Corpuscular HGB CONC 33.1 g/dL (32.0-36.0); Mean Corpuscular Hemoglobin 29.3 pg (27.0-31.0); Mean Corpuscular Volume 88.3 fL (78.0-98.0); Mean Platelet Volume 6.7 fL (7.4-10.4); Platelet Count 254 thou/uL (130-400); RBC Distribution Width 12.5 % (11.5-14.5); Red Blood Cell (RBC) Count 4.39 mill/uL (4.20-5.40)
[2022-05-17 13:39] LABS: ALT (SGPT) 12 U/L (8-55); AST (SGOT) 15 U/L (5-34); Albumin 4.2 g/dL (3.4-4.8); Alkaline Phosphatase 141 U/L (40-110); Anion Gap 12 mmol/L (10-20); BUN (Urea Nitrogen) 10 mg/dL (9.8-20.1); Bilirubin, Total 0.3 mg/dL (0.2-1.2); Calc. Creatinine Clearance 0 mL/min (70-130); Calcium 9.6 mg/dL (7.8-10.44); Carbon Dioxide 24 mmol/L (23-31); Chloride 93 mmol/L (98-107); Estimated GFR 80; Globulin 2.6 g/dL (2.4-3.5); Glucose 111 mg/dL (83-110); Protein, Total 6.8 g/dL (5.8-8.1); Sodium 125 mmol/L (136-145)
[2022-05-17] MEDS ORDERED: Metoclopramide HCl 10 MG/2 ML VIAL ONE (13:51)
[2022-05-17] MEDS ORDERED: diphenhydrAMINE 50 MG/ML VIAL ONE (13:51)
[2022-05-17] MEDS ORDERED: Aspirin Chewable 81 MG TAB ONE (14:57)
[2022-05-17 15:59] LABS: Troponin I Less than 0.010 ng/mL (< 0.028)
[2022-05-17 16:06] LABS: Bilirubin Negative (Negative); Blood, Urine Negative (Negative); Clarity Clear (Clear); Glucose, Urine (Dipstick) Normal (Negative); Ketone, Urine Negative (Negative); Leukocyte Negative Leu/uL (Negative); Nitrite Negative (Negative); Protein, Urine (Dipstick) Negative (Neg-Trace); Specific Gravity, Urine 1.006 (1.002-1.036); Urobilinogen Normal mg/dL (Less than 2); pH, Urine 7.5 (5.0-9.0)
[2022-05-17] MEDS ORDERED: Bisacodyl 5 MG TAB PO PRN (16:32)
[2022-05-17] MEDS ORDERED: Ondansetron ODT 4 MG TAB PO PRN (16:32)
[2022-05-17] MEDS ORDERED: Senokot S 8.6-50 MG TAB PO PRN (16:32)
[2022-05-17] MEDS ORDERED: Acetaminophen 650 MG Suppository PR PRN (16:32)
[2022-05-17] MEDS ORDERED: Ondansetron PF 4 MG/2 ML Vial IVP PRN (16:32)
[2022-05-17] MEDS ORDERED: hydrALAZINE 20 MG/ML VIAL SLOW IVP PRN (16:33)
[2022-05-17] MEDS ORDERED: Dextrose 50% Abboject 50 ML SYRINGE SLOW IVP PRN (16:35)
[2022-05-17] MEDS ORDERED: Insulin Regular 300 UNITS/3 ML VIAL SC PRN ×2 (16:35)
[2022-05-17] MEDS ORDERED: Dextrose 5% in Water 1,000 ML IV PRN (16:35)
[2022-05-17 17:18] LABS: Anion Gap 11 mmol/L (10-20); BUN (Urea Nitrogen) 10 mg/dL (9.8-20.1); Calc. Creatinine Clearance 0 mL/min (70-130); Calcium 9.6 mg/dL (7.8-10.44); Carbon Dioxide 25 mmol/L (23-31); Chloride 95 mmol/L (98-107); Estimated GFR 86; Glucose 100 mg/dL (83-110); Potassium 3.8 mmol/L (3.5-5.1); Sodium 127 mmol/L (136-145)
[2022-05-17] MEDS: metFORMIN 500 MG TAB PO SCH (17:45)
[2022-05-17 17:49] VITALS: BMI 33.0
[2022-05-17] MEDS ORDERED: Mometasone Furoate 30 PUFF 220 MCG INH SCH (18:30)
[2022-05-17 19:43] LABS: Sodium, Urine 89 mmol/L (Not Available); Urea Nitrogen, Random Urine 300 mg/dl
[2022-05-17] MEDS: Acetaminophen 325 MG TAB PO PRN (20:25)
[2022-05-17] MEDS ORDERED: Atorvastatin Calcium 40 MG TAB PO SCH (21:00)
[2022-05-17] MEDS ORDERED: Methyl Salicylate/Menthol 85 GM TUBE TOP PRN (21:40)
[2022-05-17 23:01] LABS: Sodium 129 mmol/L (136-145)
[2022-05-18 05:07] LABS: #Basophils 0.1 thou/uL (0.0-0.2); #Eosinphils 0.2 thou/uL (0.0-0.7); #Lymphocytes 1.6 thou/uL (1.20-3.40); #Monocytes 0.4 thou/uL (0.11-0.59); #Neutrophils 3.3 thou/uL (1.40-6.50); %Basophils 1.1 % (0.0-1.0); %Eosinophils 3.1 % (0.0-10.0); %Lymphocytes 28.4 % (21.0-51.0); %Neutrophils 60.4 % (42.0-75.0); Hemoglobin 12.1 g/dL (12.0-16.0); Mean Corpuscular HGB CONC 32.9 g/dL (32.0-36.0); Mean Corpuscular Hemoglobin 29.1 pg (27.0-31.0); Mean Corpuscular Volume 88.5 fL (78.0-98.0); Mean Platelet Volume 6.7 fL (7.4-10.4); Platelet Count 262 thou/uL (130-400); RBC Distribution Width 12.5 % (11.5-14.5); Red Blood Cell (RBC) Count 4.16 mill/uL (4.20-5.40); White Blood Cell (WBC) Count 5.5 thou/uL (4.8-10.8)
[2022-05-18] MEDS: Acetaminophen 325 MG TAB PO PRN ×2 (05:14→12:03)
[2022-05-18 05:15] LABS: Sodium 130 mmol/L (136-145)
[2022-05-18 05:30] LABS: Anion Gap 13 mmol/L (10-20); BUN (Urea Nitrogen) 9 mg/dL (9.8-20.1); Calc. Creatinine Clearance 76 mL/min (70-130); Calcium 9.6 mg/dL (7.8-10.44); Carbon Dioxide 23 mmol/L (23-31); Cardiac Risk 2.1 (Less than 4.5); Chloride 97 mmol/L (98-107); Cholesterol 175 mg/dl (< 200 Desired); Estimated GFR 87; Glucose 91 mg/dL (83-110); HDL Cholesterol 85 mg/dL (>60 Neg Risk); LDL Cholesterol, Calculated 82 mg/dL; Potassium 4.7 mmol/L (3.5-5.1); Sodium 128 mmol/L (136-145); Triglycerides 40 mg/dL (Less than 150)
[2022-05-18] MEDS ORDERED: Levothyroxine Sodium 25 MCG TAB PO SCH (06:00)
[2022-05-18] MEDS ORDERED: Enoxaparin Sodium 40 MG/0.4 ML SYRINGE SC SCH (09:00)
[2022-05-18] MEDS ORDERED: Citalopram 10 MG TAB PO SCH (09:00)
[2022-05-18] MEDS ORDERED: Aspirin 81 mg Enteric Coated Tablet PO SCH (09:00)
[2022-05-18] MEDS: metFORMIN 500 MG TAB PO SCH (09:04)
[2022-05-18 11:10] LABS: Sodium 129 mmol/L (136-145)
[2022-05-18 15:55] VITALS: BP 129/70; TEMP 97.6
[2022-05-18 17:16] LABS: Sodium 127 mmol/L (136-145)
[2022-05-18] MEDS ORDERED: Mometasone Furoate 30 PUFF 220 MCG INH SCH (18:30)
== END 2022-05-18 17:25 | disposition home or self-care (01) ==
LOC: ERS 12:16 → NEURO 15:19 → INTOOBSV 15:19
PROVIDERS: ADMIT Internal Medicine; ATTEND Internal Medicine
DX: E87.1 Hypo-osmolality and hyponatremia (principal); R20.0 Anesthesia of skin; I10 Essential (primary) hypertension; E78.5 Hyperlipidemia, unspecified; E11.9 Type 2 diabetes mellitus without complications; J44.9 Chronic obstructive pulmonary disease, unspecified; E03.9 Hypothyroidism, unspecified; G47.33 Obstructive sleep apnea (adult) (pediatric); K21.9 Gastro-esophageal reflux disease without esophagitis; J32.2 Chronic ethmoidal sinusitis; I08.3 Combined rheumatic disorders of mitral, aortic and tricuspid valves; Z79.84 Long term (current) use of oral hypoglycemic drugs; Z79.620 Long term (current) use of immunosuppressive biologic; Z79.890 Hormone replacement therapy; Z79.899 Other long term (current) drug therapy; Z20.822 Contact with and (suspected) exposure to COVID-19
CPT/HCPCS: 70450; 70551; 71045; 80048 ×2; 80053; 80061; 81003; 82962 ×2; 83930; 83935; 84295 ×2; 84300; 84484 ×2; 84540; 84560; 85025 ×2; 93005; 93306; 94640; 99285; U0003; U0005; 36415; 36416; J1200; J1650; J2765

== ENCOUNTER 2022-09-06 10:28 | Outpatient (CLI) | payer OTHER | END 2022-09-06 10:29 | disposition home or self-care (01) | LOC: BICMAMMO 10:28 | PROVIDERS: ATTEND Family Medicine | DX: Z12.31 Encounter for screening mammogram for malignant neoplasm of breast (principal) | CPT/HCPCS: 77063; 77067 ==

== ENCOUNTER 2023-02-24 14:47 | Inpatient (IN) | payer OTHER ==
[2023-02-24 15:27] LABS: #Basophils 0.1 thou/uL (0.0-0.2); #Eosinphils 0.1 thou/uL (0.0-0.7); #Monocytes 0.4 thou/uL (0.11-0.59); #Neutrophils 3.9 thou/uL (1.40-6.50); %Basophils 0.8 % (0.0-1.0); %Eosinophils 2.2 % (0.0-10.0); %Lymphocytes 24.8 % (21.0-51.0); %Neutrophils 64.9 % (42.0-75.0); Hemoglobin 11.8 g/dL (12.0-16.0); Mean Corpuscular Hemoglobin 27.5 pg (27.0-31.0); Mean Corpuscular Volume 80.9 fl (78.0-98.0); Platelet Count 296 10x3/uL (130-400); RBC Distribution Width 14.7 % (11.5-14.5); Red Blood Cell (RBC) Count 4.29 mill/uL (4.20-5.40)
[2023-02-24 15:44] LABS: ALT (SGPT) 11 U/L (8-55); AST (SGOT) 15 U/L (5-34); Albumin 4.1 g/dL (3.4-4.8); Alkaline Phosphatase 133 U/L (40-110); Anion Gap 14 mmol/L (10-20); BUN (Urea Nitrogen) 15 mg/dL (9.8-20.1); Bilirubin, Total 0.4 mg/dL (0.2-1.2); Calc. Creatinine Clearance 0 mL/min (70-130); Calcium 9.2 mg/dL (7.8-10.44); Carbon Dioxide 22 mmol/L (23-31); Chloride 91 mmol/L (98-107); Estimated GFR 75; Globulin 2.7 g/dL (2.4-3.5); Glucose 150 mg/dL (83-110); Magnesium 1.4 mg/dL (1.6-2.6); Potassium 4.2 mmol/L (3.5-5.1); Protein, Total 6.8 g/dL (5.8-8.1); Sodium 123 mmol/L (136-145)
[2023-02-24] MEDS ORDERED: Magnesium 2 GM/50 ML BAG (IN WATER) ONE (17:24)
[2023-02-24 19:45] LABS: Troponin I Less than 0.010 ng/mL (< 0.028)
[2023-02-24] MEDS ORDERED: Ondansetron PF 4 MG/2 ML Vial IVP PRN (20:34)
[2023-02-24] MEDS ORDERED: HumaLOG 300 UNITS/3 ML VIAL SC PRN ×2 (20:42)
[2023-02-24] MEDS ORDERED: Dextrose 50% Abboject 50 ML SYRINGE SLOW IVP PRN (20:42)
[2023-02-24] MEDS ORDERED: Glucagon 1 MG/ML KIT IM PRN (20:42)
[2023-02-24] MEDS ORDERED: Dextrose 5% in Water 1,000 ML IV PRN (20:42)
[2023-02-24] MEDS: Famotidine/PF 20 mg/2ml Vial SLOW IVP SCH (21:31)
[2023-02-24 21:34] VITALS: BMI 32.1
[2023-02-24 22:46] LABS: Troponin I Less than 0.010 ng/mL (< 0.028)
[2023-02-25 06:48] LABS: #Basophils 0.1 thou/uL (0.0-0.2); #Eosinphils 0.2 thou/uL (0.0-0.7); #Monocytes 0.5 thou/uL (0.11-0.59); #Neutrophils 3.8 thou/uL (1.40-6.50); %Basophils 0.8 % (0.0-1.0); %Eosinophils 2.7 % (0.0-10.0); %Lymphocytes 25.2 % (21.0-51.0); %Monocytes 7.8 % (0.0-10.0); %Neutrophils 63.3 % (42.0-75.0); Mean Corpuscular HGB CONC 33.5 g/dL (32.0-36.0); Mean Corpuscular Volume 80.6 fl (78.0-98.0); Platelet Count 303 10x3/uL (130-400); RBC Distribution Width 14.9 % (11.5-14.5); Red Blood Cell (RBC) Count 4.44 mill/uL (4.20-5.40); White Blood Cell (WBC) Count 5.9 10x3/uL (4.8-10.8)
[2023-02-25 07:21] LABS: ALT (SGPT) 11 U/L (8-55); AST (SGOT) 15 U/L (5-34); Alkaline Phosphatase 131 U/L (40-110); Anion Gap 15 mmol/L (10-20); BUN (Urea Nitrogen) 13 mg/dL (9.8-20.1); Bilirubin, Total 0.4 mg/dL (0.2-1.2); Calc. Creatinine Clearance 68 mL/min (70-130); Calcium 9.5 mg/dL (7.8-10.44); Carbon Dioxide 23 mmol/L (23-31); Chloride 98 mmol/L (98-107); Estimated GFR 78; Globulin 2.6 g/dL (2.4-3.5); Glucose 93 mg/dL (83-110); Potassium 4.6 mmol/L (3.5-5.1); Protein, Total 6.6 g/dL (5.8-8.1); Sodium 131 mmol/L (136-145)
[2023-02-25] MEDS: Famotidine/PF 20 mg/2ml Vial SLOW IVP SCH ×2 (09:32→20:36)
[2023-02-25] MEDS ORDERED: Acetaminophen 325 MG TAB PO PRN (10:19)
[2023-02-25] MEDS: Sodium Chloride 0.9% 1,000 ML IV SCH (14:58)
[2023-02-26] MEDS: Sodium Chloride 0.9% 1,000 ML IV SCH (04:39)
[2023-02-26] MEDS ORDERED: Levothyroxine Sodium 50 MCG TAB PO SCH (06:00)
[2023-02-26 07:34] LABS: #Basophils 0.1 thou/uL (0.0-0.2); #Eosinphils 0.1 thou/uL (0.0-0.7); #Monocytes 0.4 thou/uL (0.11-0.59); #Neutrophils 3.3 thou/uL (1.40-6.50); %Basophils 0.9 % (0.0-1.0); %Eosinophils 2.6 % (0.0-10.0); %Lymphocytes 27.3 % (21.0-51.0); %Monocytes 7.9 % (0.0-10.0); %Neutrophils 61.1 % (42.0-75.0); Hemoglobin 11.1 g/dL (12.0-16.0); Mean Corpuscular HGB CONC 33.5 g/dL (32.0-36.0); Mean Corpuscular Hemoglobin 27.2 pg (27.0-31.0); Mean Corpuscular Volume 81.1 fl (78.0-98.0); Mean Platelet Volume 9.1 fL (7.4-10.4); Platelet Count 272 10x3/uL (130-400); RBC Distribution Width 14.9 % (11.5-14.5); Red Blood Cell (RBC) Count 4.08 mill/uL (4.20-5.40); White Blood Cell (WBC) Count 5.4 10x3/uL (4.8-10.8)
[2023-02-26 07:59] LABS: Anion Gap 11 mmol/L (10-20); BUN (Urea Nitrogen) 13 mg/dL (9.8-20.1); Calc. Creatinine Clearance 75 mL/min (70-130); Calcium 9.2 mg/dL (7.8-10.44); Carbon Dioxide 23 mmol/L (23-31); Chloride 101 mmol/L (98-107); Estimated GFR 88; Glucose 100 mg/dL (83-110); Potassium 4.3 mmol/L (3.5-5.1); Sodium 131 mmol/L (136-145)
[2023-02-26 08:10] VITALS: TEMP 98.2
[2023-02-26] MEDS: Famotidine/PF 20 mg/2ml Vial SLOW IVP SCH (08:17)
[2023-02-26] MEDS ORDERED: Cholecalciferol 1,000 UNITS (25 MCG) TAB PO SCH (09:00)
[2023-02-26] MEDS ORDERED: Atorvastatin Calcium 10 MG TAB PO SCH (09:00)
[2023-02-26] MEDS ORDERED: Montelukast Sodium 10 mg Tablet PO SCH (09:00)
[2023-02-26] MEDS ORDERED: Aspirin 81 mg Enteric Coated Tablet PO SCH (09:00)
[2023-02-26] MEDS ORDERED: Citalopram 10 MG TAB PO SCH (09:00)
[2023-02-26] MEDS ORDERED: Dextrose 5%-Lactated Ringers 1,000 ML IV SCH (11:45)
[2023-02-26 12:14] VITALS: BP 126/80
== END 2023-02-26 17:36 | disposition home or self-care (01) | DRG 641 ==
LOC: ERS 14:47 → T4-A 18:33 → OBSVTOIN 02-26 11:24
PROVIDERS: ADMIT Hospitalist; ATTEND Internal Medicine Geriatric Medicine
DX: E87.1 Hypo-osmolality and hyponatremia (principal); E11.9 Type 2 diabetes mellitus without complications; I10 Essential (primary) hypertension; E78.5 Hyperlipidemia, unspecified; E03.9 Hypothyroidism, unspecified; D64.9 Anemia, unspecified; E55.9 Vitamin D deficiency, unspecified; J44.9 Chronic obstructive pulmonary disease, unspecified; K21.9 Gastro-esophageal reflux disease without esophagitis; G47.30 Sleep apnea, unspecified; F41.9 Anxiety disorder, unspecified; F32.A Depression, unspecified; I95.1 Orthostatic hypotension; Z79.899 Other long term (current) drug therapy; Z79.890 Hormone replacement therapy; Z79.84 Long term (current) use of oral hypoglycemic drugs; Z79.82 Long term (current) use of aspirin; T50.2X5A Adverse effect of carbonic-anhydrase inhibitors, benzothiadiazides and other diuretics, initial encounter
CPT/HCPCS: 36415; 36416; 70450; 71045; 80048; 80053; 83735; 83930; 83935; 84300; 84484; 85025; 93005; 93306; 94760; 96365; 96375; 96376; G0378; J1815; J3475; J7050; S0028

== ENCOUNTER 2023-05-21 13:39 | Outpatient (CLI) | payer OTHER | END 2023-05-21 13:40 | disposition home or self-care (01) | LOC: BICMAMMO 13:39 | PROVIDERS: ATTEND Family Medicine | DX: Z13.820 Encounter for screening for osteoporosis (principal); Z78.0 Asymptomatic menopausal state; M85.89 Other specified disorders of bone density and structure, multiple sites | CPT/HCPCS: 77080 ==

== ENCOUNTER 2023-09-23 13:26 | Outpatient (CLI) | payer OTHER | END 2023-09-23 13:27 | disposition home or self-care (01) | LOC: BICMAMMO 13:26 | PROVIDERS: ATTEND Family Medicine | DX: Z12.31 Encounter for screening mammogram for malignant neoplasm of breast (principal) | CPT/HCPCS: 77063; 77067 ==